=== PATIENT | male | born 1950 | race Caucasian/White ===

== ENCOUNTER 2018-10-17 09:35 | Inpatient (IN) | payer MEDICARE ==
[2018-10-17] MEDS ORDERED: SODIUM CHLORIDE 0.9% 1,000 ML IV STA (10:38)
[2018-10-17] MEDS ORDERED: MORPHINE SULFATE 4 MG/ML SYRINGE IV STA (10:38)
[2018-10-17 11:19] LABS: Partial Thromboplastin Time 23.7 sec (22.0-30.0); Prothrombin Time 11.1 sec (9.0-12.0)
[2018-10-17 11:20] LABS: Basophils % (A) 0 %; Eosinophils # (A) 0.1 k/uL (0-0.7); Eosinophils % (A) 1 %; HCT 49.7 % (39.0-53.0); HGB 16.9 gm/dL (13.0-17.5); Lymphocytes # (A) 0.6 k/uL (1.0-4.8); Lymphocytes % (A) 9 %; MCH 32.4 pg (25.0-35.0); MCV 95.6 fL (80.0-100.0); Mean Platelet Volume 7.7; Monocytes # (A) 0.4 k/uL (0-1.0); Monocytes % (A) 6 %; Neutrophils # (A) 5.5 k/uL (1.3-7.7); Neutrophils % (A) 84 %; Platelet Count 203 k/uL (150-450); RDW 12.7 % (11.5-15.5); WBC 6.5 k/uL (3.8-10.6)
[2018-10-17 11:25] LABS: ALT 22 U/L (21-72); AST 20 U/L (17-59); Albumin 3.8 g/dL (3.5-5.0); Alkaline Phosphatase 61 U/L (38-126); Amylase <30 U/L (30-110); Anion Gap 17 mmol/L; Blood Urea Nitrogen 20 mg/dL (9-20); Calcium 9.1 mg/dL (8.4-10.2); Carbon Dioxide 24 mmol/L (22-30); Chloride 93 mmol/L (98-107); Glucose 124 mg/dL (74-99); Lipase 35 U/L (23-300); Magnesium 2.3 mg/dL (1.6-2.3); Potassium 3.5 mmol/L (3.5-5.1); Sodium 134 mmol/L (137-145); Total Bilirubin 1.5 mg/dL (0.2-1.3); Total Protein 6.1 g/dL (6.3-8.2)
[2018-10-17 11:35] LABS: Creatine Kinase 25 U/L (55-170)
[2018-10-17 11:48] LABS: Troponin I <0.012 ng/mL (0.000-0.034)
--- NOTE | 2018-10-17 12:37 | CT ---
EXAMINATION TYPE: CT chest angio for PE DATE OF EXAM: 10/17/2018 COMPARISON: None HISTORY: 68-year-old male with pain TECHNIQUE: Contiguous axial scanning of the chest performed with IV Contrast, patient injected with 1 00 mL of Isovue 370. Coronal/sagittal MIP reconstructions performed. CT DLP: 559.9 mGycm Automated exposure control for dose reduction was used. FINDINGS: Heart normal size without pericardial effusion. Coronary vessel calcifications are present. Mildly aneurysmal aortic root at 4.0 cm. Ascending aorta aneurysmal at 4.4 cm. Conventional arch vessel branching anatomy. There is heterogene ous enhancement throughout the ascending and proximal descending thoracic aorta felt to be due to adm ixture of contrast and blood. Satisfactory opacification of the pulmonary arterial system. Mildly enlarged caliber to the main righ t and left pulmonary arteries measuring up to 2.7 cm. No flattening of the interventricular septum or reflux of contrast into the hepatic veins. There is mural-based branch point embolic material and thrombus at the junction of the right middle a nd lower lobar branches. No central filling defect is identified. For example, refer to axial image 9 0. No thoracic lymphadenopathy. Moderate to advanced centrilobular emphysema with areas of interstitial scarring. Mild diffuse bronch ial wall thickening is present. No consolidation or pleural effusion. Small hiatal hernia. Mild circumferential wall thickening of the lower esophagus could represent esop hagitis. Abdomen reported separately. Bones: Osteopenia. No osseous destructive process seen. IMPRESSION: 1. MURAL BASED, NONOCCLUSIVE THROMBUS AT THE BRANCH POINT OF THE RIGHT MIDDLE AND LOWER LOBAR PULMONA RY ARTERIES COMPATIBLE WITH CHRONIC THROMBOEMBOLIC DISEASE. NO CENTRAL FILLING DEFECT TO SUGGEST ACUT E PULMONARY EMBOLISM. 2. COPD WITH MODERATE TO ADVANCED EMPHYSEMA AND PULMONARY ARTERIAL HYPERTENSION. NO CT EVIDENCE FOR R IGHT HEART STRAIN. 3. 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 HETEROGENEOUS ENHANCEMENT THROUGHOUT THE THORACIC AORTA FELT TO BE DUE TO ADMIXTURE OF NONOPACIFIED BLOOD AND CONTRAST. 4. SMALL HIATAL HERNIA. MILD CIRCUMFERENTIAL WALL THICKENING OF THE LOWER ESOPHAGUS COULD REPRESENT E SOPHAGITIS. Critical findings called to TRU Arredondo in the ER at 12:30 PM.
[2018-10-17] MEDS ORDERED: HEPARIN SODIUM,PORCINE 5,000 UNIT/ML 1 ML VIAL IV STA (12:39)
--- NOTE | 2018-10-17 12:41 | ED ---
General Adult HPI - General Chief complaint: Abdominal Pain Stated complaint: Abd pain Time Seen by Provider: 10/17/18 10:13 Source: patient, RN notes reviewed Mode of arrival: wheelchair Limitations: no limitations - History of Present Illness Initial comments: 68-year-old male presents to the emergency department for a chief complaint of abdominal pain. Patient is deaf and angle shearer was unavailable until 3 hours into his stay. Patient points to his lower abdomen and right testicle stating he has pain. He states he has not had a bowel movement for 2 weeks. Patient also admits he has been coughing up phlegm. He admits to feeling shortness of breath. Patient denies any chest pain. Patient does admit to past smoking history. Patient is unsure of past medical diagnoses. Patient has no other complaints at this time including chest pain, headache, or visual changes. - Related Data Home Medications Medication Instructions Recorded Confirmed Doxylamine Succinate [Unisom] 25 mg PO HS PRN 10/17/18 10/17/18 Allergies Allergy/AdvReac Type Severity Reaction Status Date / Time No Known Allergies Allergy Verified 10/17/18 13:06 Review of Systems ROS Statement: Those systems with pertinent positive or pertinent negative responses have been documented in the HPI. ROS Other: All systems not noted in ROS Statement are negative. Past Medical History Past Medical History: Unable to Obtain Additional Past Medical History / Comment(s): deaf History of Any Multi-Drug Resistant Organisms: Unobtainable Past Surgical History: Unable to Obtain Past Psychological History: Unable to Obtain Smoking Status: Unknown if ever smoked Past Alcohol Use History: Unable to Obtain Past Drug Use History: Unable to Obtain - Past Family History Father History Unknown: Yes Mother History Unknown: Yes General Exam Limitations: no limitations General appearance: alert, in no apparent distress Head exam: Present: atraumatic, normocephalic, normal inspection Eye exam: Present: normal appearance, PERRL, EOMI. Absent: scleral icterus, conjunctival injection, periorbital swelling ENT exam: Present: normal exam, normal oropharynx (Oropharynx nonerythematous, no tonsillar exudates noted bilaterally), mucous membranes moist, TM's normal bilaterally, normal external ear exam Neck exam: Present: normal inspection, full ROM. Absent: tenderness, meningismus, lymphadenopathy Respiratory exam: Present: wheezes (Wheezing noted throughout lung henson). Absent: respiratory distress Cardiovascular Exam: Present: regular rate, normal rhythm, normal heart sounds. Absent: systolic murmur, diastolic murmur, rubs, gallop, clicks GI/Abdominal exam: Present: distended (Abdomen does appear distended), tenderness (Tenderness noted in the lower abdomen), hyperactive bowel sounds. Absent: guarding, rebound, rigid exam: Present: testicular tenderness, scrotal swelling (Enlarged right scrotum noted , tender to palpation) Extremities exam: Absent: calf tenderness Neurological exam: Present: alert Psychiatric exam: Present: normal affect, normal mood Course Vital Signs 10/17/18 10/17/18 10/17/18 09:40 10:42 11:00 Temperature 97.0 F L Pulse Rate 125 H 111 H Respiratory 16 18 Rate Blood Pressure 102/69 109/92 126/87 O2 Sat by Pulse 94 L 97 Oximetry 10/17/18 10/17/18 13:00 14:52 Temperature Pulse Rate 112 H 112 H Respiratory 18 18 Rate Blood Pressure 127/88 138/86 O2 Sat by Pulse 94 L 94 L Oximetry - Reevaluation(s) Reevaluation #1: 10/17/18 12:41 Radiologist called at 12:40 PM stating patient has PE, likely chronic. Reevaluation #2: 10/17/18 15:[address] santos who does not want to treat chronic PE. EKG Findings - EKG Comments: EKG Findings:: EKG shows sinus tachycardia, ventricular rate 111, WI interval 138, QTC 514, right bundle branch block evident Medical Decision Making - Medical Decision Making 68-year-old male with unknown past medical history presents to the emergency department for a chief complaint of abdominal and testicular pain. Blood pressure has been within normal limits. Patient has consistently been between 94% on room air and 97%. On exam patient does have a abdominal distention and hyperactive bowel sounds. He has tenderness in the lower abdomen. Testicle is enlarged. CT abdomen and pelvis shows a high-grade small bowel obstruction secondary to a large right inguinal hernia containing distal ileal small bowel loops. There is also a suspected high-grade colonic obstruction with a transition point along the proximal to mid aspect of a very redundant sigmoid colon. Colon is dilated up to 8.5 cm. patient complaining of shortness of breath and productive cough as well. Patient has also been consistently tachycardic. Given shortness of breath and persistent tachycardia with unknown medical history CTA of the chest was ordered which did show thrombus at the branch point of the right middle and lower lobar pulmonary arteries which is likely chronic. COPD is also evident with pulmonary arterial hypertension. 4.4 cm aneurysmal ascending aorta is also present. Patient was started on heparin. Dr. Calles Discussed this case with Dr. Jean who requests primary admission. Patient will be admitted to Dr. Jean - Lab Data Result diagrams: 10/17/18 10:45 10/17/18 10:45 Lab Results 10/17/18 10/17/18 10/17/18 Range/Units 10:45 10:45 10:45 WBC 6.5 (3.8-10.6) k/uL RBC 5.20 (4.30-5.90) m/uL Hgb 16.9 (13.0-17.5) gm/dL Hct 49.7 (39.0-53.0) % MCV 95.6 (80.0-100.0) fL MCH 32.4 (25.0-35.0) pg MCHC 34.0 (31.0-37.0) g/dL RDW 12.7 (11.5-15.5) % Plt Count 203 (150-450) k/uL Neutrophils % 84 % Lymphocytes % 9 % Monocytes % 6 % Eosinophils % 1 % Basophils % 0 % Neutrophils # 5.5 (1.3-7.7) k/uL Lymphocytes # 0.6 L (1.0-4.8) k/uL Monocytes # 0.4 (0-1.0) k/uL Eosinophils # 0.1 (0-0.7) k/uL Basophils # 0.0 (0-0.2) k/uL PT (9.0-12.0) sec INR (<1.2) APTT (22.0-30.0) sec Sodium 134 L (137-145) mmol/L Potassium 3.5 (3.5-5.1) mmol/L Chloride 93 L (98-107) mmol/L Carbon Dioxide 24 (22-30) mmol/L Anion Gap 17 mmol/L BUN 20 (9-20) mg/dL Creatinine 0.94 (0.66-1.25) mg/dL Est GFR (CKD-EPI)AfAm >90 (>60 ml/min/1.73 sqM) Est GFR (CKD-EPI)NonAf 83 (>60 ml/min/1.73 sqM) Glucose 124 H (74-99) mg/dL Calcium 9.1 (8.4-10.2) mg/dL Magnesium 2.3 (1.6-2.3) mg/dL Total Bilirubin 1.5 H (0.2-1.3) mg/dL AST 20 (17-59) U/L ALT 22 (21-72) U/L Alkaline Phosphatase 61 (38-126) U/L Total Creatine Kinase 25 L (55-170) U/L CK-MB (CK-2) 1.0 (0.0-2.4) ng/mL CK-MB (CK-2) Rel Index 4.0 Troponin I <0.012 (0.000-0.034) ng/mL NT-Pro-B Natriuret Pep pg/mL Total Protein 6.1 L (6.3-8.2) g/dL Albumin 3.8 (3.5-5.0) g/dL Amylase <30 L (30-110) U/L Lipase 35 (23-300) U/L Group A Strep Rapid (Negative) 10/17/18 10/17/18 10/17/18 Range/Units 10:45 10:45 10:45 WBC (3.8-10.6) k/uL RBC (4.30-5.90) m/uL Hgb (13.0-17.5) gm/dL Hct (39.0-53.0) % MCV (80.0-100.0) fL MCH (25.0-35.0) pg MCHC (31.0-37.0) g/dL RDW (11.5-15.5) % Plt Count (150-450) k/uL Neutrophils % % Lymphocytes % % Monocytes % % Eosinophils % % Basophils % % Neutrophils # (1.3-7.7) k/uL Lymphocytes # (1.0-4.8) k/uL Monocytes # (0-1.0) k/uL Eosinophils # (0-0.7) k/uL Basophils # (0-0.2) k/uL PT 11.1 (9.0-12.0) sec INR 1.0 (<1.2) APTT 23.7 (22.0-30.0) sec Sodium (137-145) mmol/L Potassium (3.5-5.1) mmol/L Chloride (98-107) mmol/L Carbon Dioxide (22-30) mmol/L Anion Gap mmol/L BUN (9-20) mg/dL Creatinine (0.66-1.25) mg/dL Est GFR (CKD-EPI)AfAm (>60 ml/min/1.73 sqM) Est GFR (CKD-EPI)NonAf (>60 ml/min/1.73 sqM) Glucose (74-99) mg/dL Calcium (8.4-10.2) mg/dL Magnesium (1.6-2.3) mg/dL Total Bilirubin (0.2-1.3) mg/dL AST (17-59) U/L ALT (21-72) U/L Alkaline Phosphatase (38-126) U/L Total Creatine Kinase (55-170) U/L CK-MB (CK-2) (0.0-2.4) ng/mL CK-MB (CK-2) Rel Index Troponin I (0.000-0.034) ng/mL NT-Pro-B Natriuret Pep 692 pg/mL Total Protein (6.3-8.2) g/dL Albumin (3.5-5.0) g/dL Amylase (30-110) U/L Lipase (23-300) U/L Group A Strep Rapid Negative (Negative) - EKG Data -: EKG Interpreted by Me (And Dr. Trevino) When compared to previous EKG there are: previous EKG unavailable Disposition Clinical Impression: Pulmonary embolism, Small bowel obstruction, Large bowel obstruction Disposition: ADMITTED IP TO THIS [facility] Condition: Good Is patient prescribed a controlled substance at d/c from ED?: No Time of Disposition: 14:39
[2018-10-17] MEDS ORDERED: HEPARIN SOD,PORK IN 0.45% NACL 25,000 UNIT in 0.45% NACL 1 250ML.BAG IV SCH (12:45)
--- NOTE | 2018-10-17 12:51 | CT ---
EXAMINATION TYPE: CT abdomen pelvis w con DATE OF EXAM: 10/17/2018 COMPARISON: NONE HISTORY: 68-year-old male with abdominal pain. Swollen right testicle and lower abdominal pain. TECHNIQUE: Contiguous axial scanning of the abdomen and pelvis following administration of 100 ml Iso ann 370 IV contrast. Delayed images through the kidneys and coronal/sagittal reconstructions perform ed. CT DLP: 354.9 mGycm Automated exposure control for dose reduction was used. FINDINGS: Mild circumferential wall thickening lower esophagus with a small hiatal hernia is discussed in separ ate CT chest report. A few scattered subcentimeter hypodensities in the liver too small for accurate CT characterization, likely cysts. Portal venous systems of this patent. No biliary ductal dilatation. Tiny 5 mm cystic lesion in the inferior pancreatic head. Nonspecific. Spleen and adrenal glands appe ar within normal limits. Gallbladder shows a 1 cm calculus. No abnormal gallbladder distention. A few cortical hypodense lesions in the right kidney suggestive of cysts. Symmetric uptake and excret ion of contrast from both kidneys There is herniation of multiple ileal loops of small bowel through a right inguinal hernia. Bowel loo ps within the hernia are dilated up to 2.8 cm with air-fluid levels. There is dilatation of the affer ent small bowel loops to 3.3 cm in the pelvis and lower abdomen and the efferent terminal ileum is re latively collapsed. However, there is marked diffuse colonic dilatation measuring up to 8.5 cm with fatty stool material. An apparent transition point is seen along the very redundant proximal to mid sigmoid colon on axial images 52 and 53 and sagittal image 77. No free air. There is mild to moderate pelvic free fluid. Prostate gland measures 5.5 cm wide. No pel joe lymphadenopathy or obvious intra-abdominal lymphadenopathy seen. Bones: Osteopenia without osseous destructive process. IMPRESSION: 1. HIGH-GRADE SMALL BOWEL OBSTRUCTION SECONDARY TO A LARGE RIGHT INGUINAL HERNIA CONTAINING DISTAL IL EAL SMALL BOWEL LOOPS. SMALL BOWEL LOOPS ARE DILATED UP TO 3.3 CM. LOOPS WITHIN THE HERNIA SAC ARE DI LATED UP TO 2.8 CM. 2. SUSPECT A HIGH-GRADE COLONIC OBSTRUCTION WELL WITH TRANSITION POINT ALONG THE PROXIMAL TO MID A SPECT OF A VERY REDUNDANT SIGMOID COLON (AXIAL IMAGES 52 AND 53 AND SAGITTAL IMAGE 77). COLON IS DILA KSIP UP TO 8.5 CM. 3. MILD TO MODERATE PELVIC ASCITES LIKELY REACTIVE. NO FREE AIR. 4. CHOLELITHIASIS.
[2018-10-17] MEDS ORDERED: ONDANSETRON 4 MG/2 ML VIAL IVP STA (14:10)
[2018-10-17] MEDS ORDERED: AMPICILLIN-SULBACTAM 3 GM in SODIUM CHLORIDE 0.9% 100 ML IVPB STA (14:10)
[2018-10-17] MEDS ORDERED: PANTOPRAZOLE 40 MG/10 ML VIAL IVP STA (14:10)
[2018-10-17] MEDS ORDERED: ONDANSETRON 4 MG/2 ML VIAL IVP PRN (14:10)
[2018-10-17] MEDS: MORPHINE SULFATE 4 MG/ML SYRINGE IVP PRN (14:46)
[2018-10-17] MEDS ORDERED: LIDOCAINE URO-JET JELLY 2% 5 ML KIT URETHRAL ONE (15:13)
--- NOTE | 2018-10-17 15:57 | XR ---
EXAMINATION TYPE: XR chest 1V DATE OF EXAM: 10/17/2018 COMPARISON: CT chest, abdomen, and pelvis of the same date HISTORY: Chest pain. Nasal gastric tube placement. TECHNIQUE: Single frontal view of the chest is obtained. FINDINGS: There is pulmonary hyperinflation and biapical lucency compatible with underlying COPD. Os seous structures display generalized osseous demineralization. Right hemidiaphragm elevation is seen and there are no priors for comparison. No focal consolidation, pleural effusion or pneumothorax. The fenestrated portion of the enteric tube is seen at the gastroesophageal junction and could be adv anced for optimal placement at least 3 cm. Hilar prominence may relate to underlying pulmonary arteri al hypertension as seen on the recent CT. IMPRESSION: 1. The fenestrated portion of the nasogastric tube is located at the gastroesophageal junction and co uld be advanced at least 3 cm for optimal placement. 2. Findings compatible with underlying COPD. 3. Partial visualization of dilated intra-abdominal bowel compatible with a recent CT demonstrating h igh-grade small bowel obstruction.
[2018-10-17] MEDS: SODIUM CHLORIDE 0.9% 1,000 ML IV SCH (18:00)
--- NOTE | 2018-10-17 18:41 | HP ---
HISTORY AND PHYSICAL CHIEF COMPLAINT: Abdominal and chest pain. HISTORY OF PRESENT ILLNESS: This is the first known admission for this 68-year-old white male. He came to the emergency room after he had had 2 days of abdominal pain with distention. He had no nausea or vomiting. He is difficult to obtain a history from because he is deaf, and the history is taken through an educational interpreter using sign language. He sounds like he has otherwise been healthy and does go to a physician. He denies any significant weight loss, melena, hematochezia, jaundice, hematemesis, etc. He has had no fever or chills. In the emergency room it was determined that he had a bowel obstruction and he has a large inguinal hernia that is distended into the right hemiscrotum. Apparently he also had a PE at the junction of the right middle and lower lobes. He has had no history of any chest pain, hemoptysis, swelling in either leg, etc. REVIEW OF SYSTEMS: He has apparently had no other health problems, including headaches, trouble with vision or hearing, diabetes, hypertension, kidney disease, etc. Past medical history, family history, and personal and social histories reveal that he is not on any medication and NOT ALLERGIC TO ANY MEDICATION. Surgically he has had a cyst removed from the back of the left wrist and one from the right leg. He smokes about a pack of cigarettes a day and drinks alcohol occasionally at bedtime. PHYSICAL EXAMINATION: Blood pressure is 142/76 with a pulse of 80, respirations of 20, and he is afebrile. In general he appeared to be slender, asthenic and in no acute distress. Head, ears, eyes, nose, mouth and throat were normal. Carotids were normal. Neck veins were not distended. The chest was clear. There were no rales or rhonchi. There were no rubs. Cardiac exam was normal sinus rhythm and no murmurs or extra sounds. The abdomen was slightly distended and he had generalized mild tenderness. Bowel sounds were not heard. He had a large right inguinal hernia that completely fills the scrotum. EXTREMITIES: Normal. There was no edema, calf tenderness or swelling, and the pulses were good. Neurologically he was intact. IMPRESSION: 1. Bowel obstruction. 2. Probable incarcerated right inguinal hernia. 3. Pulmonary embolism at the bifurcation of the right middle and lower lobes and pulmonary vein. 4. Congenital deafness. PLAN: 1. Bed rest. 2. IV fluids. 3. N.p.o. 4. Anticoagulate with heparin now until he goes to the operating room, if necessary. 5. Consult General Surgery. WARREN / DEIDRE: [id number] /
[2018-10-17 19:56] LABS: Appearance,Urine Clear (Clear); Bilirubin,Urine Negative (Negative); Blood,Urine Negative (Negative); Color,Urine Yellow; Glucose,Urine (UA) Negative (Negative); Ketones,Urine 1+ (Negative); Leukocyte Esterase,Urine Negative (Negative); Mucus,Urine Rare /hpf; Nitrite,Urine Negative (Negative); Protein,Urine 1+ (Negative); RBC,Urine 6 /hpf (0-5); Squamous Epithelial Cell,Urine 1 /hpf (0-4); Urobilinogen,Urine <2.0 mg/dL (<2.0); WBC,Urine 4 /hpf (0-5)
[2018-10-17 20:07] LABS: Specific Gravity,Urine >1.050 (1.001-1.035)
[2018-10-17] MEDS: AMPICILLIN-SULBACTAM 3 GM in SODIUM CHLORIDE 0.9% 100 ML IVPB SCH (21:50)
[2018-10-18] MEDS: MORPHINE SULFATE 4 MG/ML SYRINGE IVP PRN ×2 (00:06→04:28)
[2018-10-18] MEDS: SODIUM CHLORIDE 0.9% 1,000 ML IV SCH ×4 (00:09→19:18)
--- NOTE | 2018-10-18 00:54 | US ---
EXAMINATION TYPE: US venous doppler duplex LE BI DATE OF EXAM: 10/17/2018 3:51 PM COMPARISON: NONE CLINICAL HISTORY: Rule out DVT. Pain SIDE PERFORMED: Bilateral TECHNIQUE: The lower extremity deep venous system is examined utilizing real time linear array sonog nuris with graded compression, doppler sonography and color-flow sonography. VESSELS IMAGED: External Iliac Vein (EIV) Common Femoral Vein Deep Femoral Vein Greater Saphenous Vein * Femoral Vein Popliteal Vein Small Saphenous Vein * Proximal Calf Veins (* superficial vessels) Right Leg: Negative for DVT Left Leg: Negative for DVT No evidence of DVT bilateral legs. IMPRESSION: Normal bilateral leg duplex venous sonogram.
[2018-10-18] MEDS: AMPICILLIN-SULBACTAM 3 GM in SODIUM CHLORIDE 0.9% 100 ML IVPB SCH ×4 (02:32→21:04)
[2018-10-18] MEDS: PANTOPRAZOLE 40 MG/10 ML VIAL IVP SCH (07:44)
--- NOTE | 2018-10-18 11:32 | P.GSCN ---
History of Present Illness Consult date: 10/18/18 Reason for Consult: Abdominal pain small bowel obstruction History of present illness: 68-year-old presents to the emergency room with a chief complaint of developing lower abdominal pain. 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 Blender Snuff at bedside during interview patient reports that he has not had a bowel movement thinks for at least several weeks with nausea sensation poor appetite feeling slightly short of breath no fever chills denies chest pain . Additionally patient states he has had right testicle swelling for at least 4 years has increased in size abdomen is firm distended with hyperactive bowel tones nasal gastric tube is in place connected to suction. Patient states he is not normally bothered by chronic constipation this is new no prior episodes patient states only home medication he takes is for insomnia takes over-the- counter unisom. Patient states he lives alone has no family . No significant past surgical history. No significant past medical history when questioning states he has not seen a physician in years . States he does drink 40 ounces of alcohol at least daily and smokes one pack of cigarettes daily Venous Dopplers done in the emergency room no evidence of a DVT CAT scan abdomen and pelvis with contrast report reviewed indicates high-grade small bowel obstruction secondary to a large right inguinal hernia containing distal ileum small bowel loops suspect a high-grade colon obstruction as well as transition point along the proximal to mid aspect of the very redundant sigmoid colon no free air mild to moderate pelvic ascites likely reactive CAT scan of the chest to rule out PE reviewed the report COPD with moderate to advanced emphysema no evidence of right heart strain, no central filling defect to suggest an acute pulmonary emboli, small hiatal hernia, aneurysmal ascending aorta at 4.4 cm Review of Systems Essentially unremarkable except as mentioned present illness Past Medical History Past Medical History: Unable to Obtain Additional Past Medical History / Comment(s): deaf History of Any Multi-Drug Resistant Organisms: Unobtainable Past Surgical History: Unable to Obtain Additional Past Surgical History / Comment(s): cyst from right hand removed, and rt hip Past Anesthesia/Blood Transfusion Reactions: No Reported Reaction Additional Past Anesthesia/Blood Transfusion Reaction / Comm: "has never recieved any blood transfusions" Past Psychological History: Unable to Obtain Smoking Status: Unknown if ever smoked Past Alcohol Use History: Unable to Obtain Past Drug Use History: Unable to Obtain - Past Family History Father History Unknown: Yes Mother History Unknown: Yes Medications and Allergies Home Medications Medication Instructions Recorded Confirmed Type Doxylamine Succinate [Unisom] 25 mg PO HS PRN 10/17/18 10/17/18 History Allergies Allergy/AdvReac Type Severity Reaction Status Date / Time No Known Allergies Allergy Verified 10/17/18 13:06 Surgical - Exam Vital Signs Temp Pulse Resp BP Pulse Ox 97.0 F L 125 H 16 102/69 94 L 10/17/18 09:40 10/17/18 09:40 10/17/18 09:40 10/17/18 09:40 10/17/18 09:40 GENERAL APPEARANCE: 68-year-old male deaf since unkempt looking older than stated age alert, oriented, VITAL SIGNS: Reviewed HEENT: Head is normocephalic and atraumatic. Pupils are equal and reactive. The nares are patent. Oropharynx is clear without lesions. NECK: Supple without lymphadenopathy. Traches midline. HEART: S1, S2. Regular rate and rhythm. Denying chest pain no murmur noted LUNGS: Bilateral prolonged expiratory wheezing noted decreased at the bases ABDOMEN: Firm distended nasal gastric tube to suction positive scrotal edema with tenderness enlarged right scrotum tender to palpitation scrotum excoriated incontinent of stool small smear on underwear EXTREMITIES: Normal skin color and turgor. No cyanosis, rash, ulceration, clubbing or edema. Radial pedal pulses are 2/4 bilaterally. NEUROLOGICAL: No focal deficits. Strength and sensation are grossly intact. Results Impression Present on admission abdominal distention with constipation no bowel movement for 2 weeks suspect due to incarcerated small bowel obstruction Daily alcohol use 40 ounces daily Daily tobacco use one pack a day Computed tomography scan abdomen and pelvis done in the emergency room report indicate high-grade small bowel obstruction secondary to a large right inguinal hernia Computed tomography scan abdomen and pelvis mild to moderate pelvic ascites likely reactive no free air Deaf since uses a sign language to communicate needs an exhaust worker at the bedside No evidence of a DVT bilateral Doppler studies negative of the lower extremities Computed tomography scan of the chest showed COPD with moderate to advanced emphysema CAT scan of the chest no central filling defect to suggest an acute pulmonary emboli felt to be chronic there is a nonocclusive thrombus at the branch point of the right middle and lower lobe compatible with chronic thromboembolic disease Present on admission sinus tachycardia heart rate 110 Chronic insomnia Plan Monitor patient for impending DTs Consult cardiology tachycardia follow-up on echocardiogram Continue with the nasogastric tube to suction as ordered DVT and GI prophylaxis Continue recommendations by pulmonary Scheduled today for exploratory laparotomy small bowel obstruction due to incarcerated hernia Further surgical recommendations pending clinical course The above impression and plan of care have been discussed and directed by signing physician. Shoshana Ritchie nurse practitioner acting as scribe for signing physician. - Labs 10/17/18 10:45 10/17/18 10:45 Abnormal Lab Results - Last 24 Hours (Table) 10/17/18 10/17/18 10/17/18 Range/Units 10:45 10:45 10:45 Lymphocytes # 0.6 L (1.0-4.8) k/uL APTT (22.0-30.0) sec Sodium 134 L (137-145) mmol/L Chloride 93 L (98-107) mmol/L Glucose 124 H (74-99) mg/dL Total Bilirubin 1.5 H (0.2-1.3) mg/dL Total Creatine Kinase 25 L (55-170) U/L Total Protein 6.1 L (6.3-8.2) g/dL Amylase <30 L (30-110) U/L Ur Specific Douglas (1.001-1.035) Urine Protein (Negative) Urine Ketones (Negative) Urine RBC (0-5) /hpf Urine Mucus (None) /hpf 10/17/18 10/17/18 Range/Units 19:40 20:29 Lymphocytes # (1.0-4.8) k/uL APTT 135.9 H* (22.0-30.0) sec Sodium (137-145) mmol/L Chloride (98-107) mmol/L Glucose (74-99) mg/dL Total Bilirubin (0.2-1.3) mg/dL Total Creatine Kinase (55-170) U/L Total Protein (6.3-8.2) g/dL Amylase (30-110) U/L Ur Specific Douglas >1.050 H (1.001-1.035) Urine Protein 1+ H (Negative) Urine Ketones 1+ H (Negative) Urine RBC 6 H (0-5) /hpf Urine Mucus Rare H (None) /hpf Microbiology - Last 24 Hours (Table) 10/17/18 19:40 Urine Culture - Preliminary Urine,Voided 10/17/18 10:45 Group A Strep Throat Culture - Preliminary Throat Diabetes panel 10/17/18 Range/Units 10:45 Sodium 134 L (137-145) mmol/L Potassium 3.5 (3.5-5.1) mmol/L Chloride 93 L (98-107) mmol/L Carbon Dioxide 24 (22-30) mmol/L BUN 20 (9-20) mg/dL Creatinine 0.94 (0.66-1.25) mg/dL Glucose 124 H (74-99) mg/dL Calcium 9.1 (8.4-10.2) mg/dL AST 20 (17-59) U/L ALT 22 (21-72) U/L Alkaline Phosphatase 61 (38-126) U/L Total Protein 6.1 L (6.3-8.2) g/dL Albumin 3.8 (3.5-5.0) g/dL Calcium panel 10/17/18 Range/Units 10:45 Calcium 9.1 (8.4-10.2) mg/dL Albumin 3.8 (3.5-5.0) g/dL Pituitary panel 10/17/18 Range/Units 10:45 Sodium 134 L (137-145) mmol/L Potassium 3.5 (3.5-5.1) mmol/L Chloride 93 L (98-107) mmol/L Carbon Dioxide 24 (22-30) mmol/L BUN 20 (9-20) mg/dL Creatinine 0.94 (0.66-1.25) mg/dL Glucose 124 H (74-99) mg/dL Calcium 9.1 (8.4-10.2) mg/dL Adrenal panel 10/17/18 Range/Units 10:45 Sodium 134 L (137-145) mmol/L Potassium 3.5 (3.5-5.1) mmol/L Chloride 93 L (98-107) mmol/L Carbon Dioxide 24 (22-30) mmol/L BUN 20 (9-20) mg/dL Creatinine 0.94 (0.66-1.25) mg/dL Glucose 124 H (74-99) mg/dL Calcium 9.1 (8.4-10.2) mg/dL Total Bilirubin 1.5 H (0.2-1.3) mg/dL AST 20 (17-59) U/L ALT 22 (21-72) U/L Alkaline Phosphatase 61 (38-126) U/L Total Protein 6.1 L (6.3-8.2) g/dL Albumin 3.8 (3.5-5.0) g/dL Assessment and Plan Assessment: Impression 68-year-old male sitting up in bed with a nasogastric tube in place exhaust worker at bedside able to read sign language oriented to person place and event Lungs prolonged expiratory wheezing throughout no cough noted states is not short of breath Heart S1-S2 audible regular no murmur Abdomen firm distended positive tenderness in the lower abdominal wall with hyperactive bowel tones nasogastric tube to suction reports a nausea sensation Extremities no calf tenderness no edema noted exam positive tenderness with scrotal edema bilaterally right greater than the left tenderness with palpitation with firmness noted scrotal excoriation noted
[2018-10-18] MEDS: HEPARIN SODIUM,PORCINE 5,000 UNIT/ML 1 ML VIAL SQ SCH ×2 (11:52→18:29)
[2018-10-18] MEDS ORDERED: ONDANSETRON 4 MG/2 ML VIAL IVP ONE ×2 (14:48→15:12)
[2018-10-18] MEDS ORDERED: DEXAMETHASONE SOD PHOSPHATE 10 MG/ML 1 ML VIAL IV ONE ×2 (14:48→15:12)
[2018-10-18] MEDS ORDERED: LIDOCAINE 1% 20 ML VIAL (10MG/ML) FOR IV START INTRADERMA PRN (14:48)
[2018-10-18] MEDS ORDERED: SCOPOLAMINE 1.5MG/72HR PATCH TRANSDERM ONE (14:48)
[2018-10-18] MEDS ORDERED: IV FLUID CONTINUATION 1,000 ML IV ONE (15:12)
[2018-10-18] MEDS ORDERED: fentaNYL (PF) 50 MCG/ML 2 ML AMP ONE (16:36)
[2018-10-18] MEDS ORDERED: PROPOFOL 10 MG/ML 20 ML VIAL IV ONE (16:36)
[2018-10-18] MEDS ORDERED: GLYCOPYRROLATE 0.2 MG/ML 2 ML VIAL ONE (16:36)
[2018-10-18] MEDS ORDERED: MIDAZOLAM 2 MG/2 ML VIAL ONE (16:36)
[2018-10-18] MEDS ORDERED: ROCURONIUM BROMIDE 10 MG/ML 10 ML VIAL IV ONE (16:36)
[2018-10-18] MEDS ORDERED: LIDOCAINE 1% INJ 10MG/ML (20 ML MDV) ONE (16:36)
[2018-10-18] MEDS ORDERED: NEOSTIGMINE 1 MG/ML 10 ML VIAL ONE (16:36)
[2018-10-18] MEDS ORDERED: HYDROmorphone (PF) 1 MG/ML ONE (16:36)
[2018-10-18] MEDS ORDERED: SUCCINYLCHOLINE CHLORIDE 100 MG/5 ML SYR IV ONE (16:36)
--- NOTE | 2018-10-18 16:44 | PN ---
PROGRESS NOTE CHIEF COMPLAINT: Bowel obstruction. HISTORY OF PRESENT ILLNESS: This gentleman has been stable and it is planned that he is going to the operating room today, for which he is cleared. PHYSICAL EXAMINATION: Chest is clear. Cardiac exam is normal. The abdomen is still distended and tender. IMPRESSION: 1. Bowel obstruction. 2. Right inguinal hernia. PLAN: Surgical intervention today. WARREN / CYNDIN: [id number] /
[2018-10-18] MEDS ORDERED: KETOROLAC 30 MG/ML 1 ML VIAL IVP PRN (17:45)
[2018-10-18] MEDS ORDERED: BENZOCAINE/MENTHOL LOZENG 1 EACH LOZENGE MUCOUS MEM PRN (17:45)
[2018-10-18] MEDS ORDERED: METOCLOPRAMIDE 5 MG/ML 2 ML VIAL IVP PRN (17:45)
[2018-10-18] MEDS ORDERED: LACTATED RINGERS 1,000 ML IV ONE (17:48)
--- NOTE | 2018-10-18 17:49 | P.OP ---
Date of Procedure: 10/18/18 Preoperative Diagnosis: Colonic obstruction Postoperative Diagnosis: Plaque obstruction Ventral hernia Procedure(s) Performed: Left colectomy with end colostomy Partial omentectomy Repair of ventral hernia Anesthesia: LUIS ANTONIO Surgeon: Chas Jean Estimated Blood Loss (ml): 25 Pathology: other (Left colon, incarcerated omentum) Condition: stable Disposition: PACU Description of Procedure: Patient's placed the operative table in the supine position. He received general anesthesia. His abdomen was prepped and draped usual sterile fashion. The area was entered through midline incision. There was a small ventral hernia containing incarcerated omentum. The omentum was transected and sent to pathology. A Bookwalter tract with wound. The colon and small bowel were very dilated. The cecum measured approximately 15 cm diameter. The colon was tracked to the left colon and there was obstructing tumor. The colon was transected distally and proximally with a GI stapler and then using the Enseal device the mesentery the bowel was divided. A another distal segment was removed. It contained a hard stool within it. It was transected with a GI stapler and then the mesentery was divided with the Enseal device. The colon and small bowel or massive dilated. An enterotomy was made at the colonic staple line and then the colon was aspirated. This was closed with a GI stapler. Next another enterotomy is made on the small bowel and it was decompressed as well and then the enterotomy was closed with the TA stapler. The colostomy was brought out in the left lower quadrant. The abdomen was irrigated the fascia was closed with looped #1 PDS suture. The fascia was closed with looped PDS suture the fascia repair incorporated the repair of the ventral hernia. The skin was closed morena. The colostomy matured with 3-0 Vicryl. Silverlon dressing was applied. Patient thought procedure well and sent to recovery in stable condition.
--- NOTE | 2018-10-18 17:57 | CONS ---
CONSULTATION PULMONARY CRITICAL CARE CONSULTATION: REASON FOR CONSULTATION: Possible pulmonary embolism. This is a very pleasant 68-year-old male who presents to the emergency department for complaints of lower abdominal pain. The pain is primarily in the right groin area. The patient was found to have a large hernia noted in the right inguinal area. Multiple loops of bowel were noted to protrude into the inguinal canal. He was seen by Surgery and there was some consideration given to the possibility of surgery. He was also thought to have a bowel obstruction. I was consulted because for some reason apparently he was having some difficulty breathing. On further talking to the patient through a university administrator because the patient is deaf, it was discovered that the patient's primary issue was that he was not able to breathe through his nose because it was stuffed up and also because he had an NG tube in place. Anyway, because of the questionable shortness of breath history, the patient went for a CT angiogram. The CT angiogram showed an old clot noted in the right pulmonary artery. On talking to the patient again through the university administrator, he apparently has had a previous history of blood clot many years back. The radiologist who read the scan thought the clot was likely old and not acute. The patient is really not having any chest pain or chest discomfort. Not short of breath. Not coughing. No fever or chills. I believe this clot probably is remote in its origin and not acute in any way whatsoever. MEDICATION: His only medication at home is Unisom 25 mg at bedtime. ALLERGIES: NO KNOWN ALLERGIES. His past medical history is not well documented other than for remote history of PE. The patient does have deafness. Surgical history is unknown. SOCIAL HISTORY: Negative for tobacco use. The rest of the history is not too remarkable. Occupational and family history not known. REVIEW OF SYSTEMS: Review of systems is difficult to obtain, but his only complaint really is pain in the right groin area. This is what really brought him into the emergency department. He denies any nausea or vomiting. No fever or chills. No cough. No phlegm production. No chest pain or chest discomfort. Nothing to suggest pulmonary embolus as an acute event. PHYSICAL EXAMINATION: Current vital signs are reviewed. Temperature is 97.8, heart rate 108, respirations 17, blood pressure 140/92, mean of 108, room-air saturation 96%. Appears in no acute distress. HEENT examination is grossly unremarkable. Mucous membranes are moist. There is an NG tube in place. NECK: Supple. Full range of motion. No adenopathy. Cardiovascular examination reveals regular rhythm and rate. S1, S2 normal. He is mildly tachycardic at 100 beats per minute. It is regular. LUNGS: Clear breath sounds. No wheezes, rhonchi or crackles. ABDOMEN: Soft. Bowel sounds are heard. There is obvious hernia in the right inguinal area. Loops of bowel can be palpated. Skin is without rash. Extremity examination reveals no cyanosis, clubbing or edema. Neurologic examination is brief but nonfocal. The interview and the subsequent examination were assisted by the machine precision engraver, who could communicate with the patient because the patient is deaf. LABS: Reviewed. White count 6.5, hemoglobin 16.9, hematocrit 49.7, platelet count 203 ,000. PT/INR normal. PTT is 135.9, reflecting the patient being on IV heparin. Sodium 134, potassium 3.5, chloride 93, CO2 of 24. BUN and creatinine were 20 and 0.94. Glucose 124. Total bilirubin was 1.5, CK 25, N-terminal proBNP 692, total protein 6.1. Amylase was less than 30, lipase was normal. Albumin 3.8. Urine was negative. Group A rapid strep was negative. We did a Doppler of the lower extremities. They were negative for DVT. A chest x-ray done shows partial visualization of dilated intraabdominal bowel compatible with high- grade small bowel obstruction. CT results are noted and the scan was actually evaluated. In addition to a mural-based nonocclusive thrombus at the branch point of the right middle and lower lobe pulmonary arteries, which was consistent with chronic thromboembolic disease, there was no central filling defect to suggest acute pulmonary embolism. Changes of COPD noted. There was no evidence of heart strain. There was an aneurysm of the ascending aorta. Finally there was a small hiatal hernia. Abdominal and pelvic CT showed evidence of high-grade small-bowel obstruction secondary to a large right inguinal hernia containing distal ileal small bowel loops. In addition, there was a high-grade colonic obstruction. There were some gallstones as well. Medications are reviewed. Currently the patient is on Unasyn, IV heparin, lidocaine jelly, morphine, Zofran, Protonix and an IV. ASSESSMENT: 1. Doubt acute pulmonary embolism. 2. History of remote pulmonary embolism many years back. The patient is not really able to give much history as it relates to this previous episode of pulmonary embolism. 3. High-grade small-bowel obstruction as well as large-bowel obstruction secondary to entrapped bowel loops within the right inguinal canal. 4. Deafness. PLAN: In my opinion, the patient does not need IV heparin at this time. The patient's Doppler was negative. D-dimer was never done. The patient apparently might have surgery today. Obviously the heparin will have to be discontinued prior. I do not believe the patient needs heparin post surgery. The patient can just get standard DVT prophylaxis with either heparin 5000 units q.8 hours or Lovenox 40 mg twice a day subcutaneously. Additional recommendations and suggestions are forthcoming. WARREN / CYNDIN: [id number] / MTDD
[2018-10-18] MEDS: HYDROmorphone 0.5 MG/0.5 ML SYRINGE IVP PRN ×2 (18:10→18:15)
[2018-10-18] MEDS ORDERED: METOPROLOL TARTRATE 5 MG/5 ML VIAL IVP ONE ×2 (18:20)
[2018-10-18] MEDS: LACTATED RINGERS 1,000 ML IV SCH (18:28)
[2018-10-18] MEDS: HYDROmorphone 1 MG/ML 1 ML SYRINGE IVP PRN (20:05)
[2018-10-18] MEDS: D5-0.45% NACL WITH KCL 20MEQ/L 1,000 ML IV SCH ×2 (21:52→22:00)
[2018-10-19] MEDS: HYDROmorphone 1 MG/ML 1 ML SYRINGE IVP PRN ×6 (00:44→22:45)
[2018-10-19] MEDS: AMPICILLIN-SULBACTAM 3 GM in SODIUM CHLORIDE 0.9% 100 ML IVPB SCH ×4 (03:21→21:10)
[2018-10-19] MEDS: HEPARIN SODIUM,PORCINE 5,000 UNIT/ML 1 ML VIAL SQ SCH ×3 (03:59→16:07)
[2018-10-19] MEDS: SODIUM CHLORIDE 0.9% 1,000 ML IV SCH ×2 (04:00→10:52)
[2018-10-19] MEDS: D5-0.45% NACL WITH KCL 20MEQ/L 1,000 ML IV SCH ×2 (06:10→16:01)
[2018-10-19] MEDS: LACTATED RINGERS 1,000 ML IV SCH (07:21)
[2018-10-19] MEDS: PANTOPRAZOLE 40 MG/10 ML VIAL IVP SCH (07:26)
[2018-10-19 08:06] LABS: Basophils % (A) 0 %; Eosinophils % (A) 1 %; HCT 43.9 % (39.0-53.0); HGB 14.3 gm/dL (13.0-17.5); Lymphocytes # (A) 0.4 k/uL (1.0-4.8); Lymphocytes % (A) 8 %; MCH 31.8 pg (25.0-35.0); MCHC 32.7 g/dL (31.0-37.0); MCV 97.4 fL (80.0-100.0); Mean Platelet Volume 7.6; Monocytes # (A) 0.3 k/uL (0-1.0); Monocytes % (A) 7 %; Neutrophils # (A) 4.2 k/uL (1.3-7.7); Neutrophils % (A) 83 %; Platelet Count 153 k/uL (150-450); RBC 4.51 m/uL (4.30-5.90); RDW 12.9 % (11.5-15.5)
[2018-10-19 08:30] LABS: ALT 24 U/L (21-72); AST 17 U/L (17-59); Albumin 2.3 g/dL (3.5-5.0); Alkaline Phosphatase 32 U/L (38-126); Anion Gap 5 mmol/L; Blood Urea Nitrogen 14 mg/dL (9-20); Calcium 7.8 mg/dL (8.4-10.2); Carbon Dioxide 25 mmol/L (22-30); Chloride 107 mmol/L (98-107); Glucose 125 mg/dL (74-99); Potassium 4.6 mmol/L (3.5-5.1); Sodium 137 mmol/L (137-145); Total Bilirubin 0.7 mg/dL (0.2-1.3); Total Protein 4.4 g/dL (6.3-8.2)
--- NOTE | 2018-10-19 10:22 | CONS ---
CONSULTATION Mr. Ochoa is a 68-year-old gentleman who is seen for preop evaluation. Patient is admitted with lower abdominal pain and has a incarcerated inguinal hernia, and the patient is supposed to go for surgery. The patient is deaf. History was obtained from the spanish interpreter/translator. Patient mostly came with abdominal pain. He did not had any significant difficulty in breathing. There is no prior cardiac history of any myocardial infarction or congestive cardiac failure. Patient denies any history of diabetes or any prior history of a stroke. On admission, a CT angiogram was done which showed questionable old blood clot, which may be old one and clinically overall history is not suggestive of acute pulmonary embolism. REVIEW OF THE SYSTEM: Otherwise unremarkable. PHYSICAL EXAMINATION: At present, reveals a 68-year-old gentleman who is not in any acute distress. Patient's heart rate is 100. He is afebrile. Blood pressure is 140/92 mmHg, oxygen saturation is 96%. HEENT examination is negative. Neck is supple. There is no increase in jugular venous pressure. Both the carotid pulses are felt. There is no bruit. Chest is symmetrical. Heart the PMI is not felt. First and second heart sounds are heard. Lungs are clear to auscultation and percussion. Abdomen is distended. Bowel sounds are hypoactive. Extremities, there is no evidence of any leg edema. Patient's echocardiogram shows overall normal left ventricular systolic function. Right ventricular systolic pressures are normal. EKG shows evidence of sinus tachycardia with a right bundle branch block pattern. FINAL IMPRESSION: This patient is primarily admitted with abdominal pain and an incarcerated inguinal hernia. Patient is stable cardiac núñez. There is no evidence of any overt congestive cardiac failure. Patient does not have any history suggestive of pulmonary embolism. Pulmonary consultation is also noted. The CT angiogram findings could be suggestive of an old clot or it could be an artifact. Patient is considered an acceptable risk for surgery. I will recommend to be used standard DVT prophylaxis in the postop period preferably with Xarelto 10 mg daily for 4-6 weeks. MMODL / IJN: [id number] /
--- NOTE | 2018-10-19 12:55 | ECHOF ---
Referral Reason: MEASUREMENTS -------- HEIGHT: 180.3 cm WEIGHT: 74.8 kg BP: IVSd: 1.2 cm (0.6 - 1.1) LVIDd: 3.8 cm (3.9 - 5.3) LVPWd: 1.0 cm (0.6 - 1.1) IVSs: 1.8 cm LVIDs: 1.8 cm LVPWs: 1.6 cm Ao Diam: 3.8 cm (2.0 - 3.7) AV Cusp: 2.3 cm (1.5 - 2.6) LA Diam: 2.9 cm (2.7 - 3.8) MV EXCURSION: 17.354 mm (> 18.000) MV EF SLOPE: 64 mm/s (70 - 150) EPSS: 0.6 cm MV E Myron: 0.69 m/s MV DecT: 103 ms MV A Myron: 0.82 m/s MV E/A Ratio: 0.84 RAP: 5.00 mmHg RVSP: 12.89 mmHg FINDINGS -------- Resting tachycardia (HR>100bpm). This was a technically difficult study with suboptimal views. The left ventricular size is normal. There is mild concentric left ventricular hypertrophy. Overa ll left ventricular systolic function is normal with, an EF between 55 - 60 %. RV Promident The left atrium is normal in size. The right atrium is normal in size. 5.0mg of Lumason was utilized for enhancement of images The aortic valve was not well visualized. The mitral valve was not well visualized. The tricuspid valve was not well visualized. The pulmonic valve was not well visualized. The pericardium is normal. CONCLUSIONS -------- 1. Resting tachycardia (HR>100bpm). 2. This was a technically difficult study with suboptimal views. 3. The left ventricular size is normal. 4. There is mild concentric left ventricular hypertrophy. 5. Overall left ventricular systolic function is normal with, an EF between 55 - 60 %. 6. RV Promident 7. The left atrium is normal in size. 8. The right atrium is normal in size. 9. 5.0mg of Lumason was utilized for enhancement of images 10. The aortic valve was not well visualized. 11. The mitral valve was not well visualized. 12. The tricuspid valve was not well visualized. 13. The pulmonic valve was not well visualized. 14. The pericardium is normal. PLANER CHAIN OFFBEARER: Magdalena Smith RDCS
--- NOTE | 2018-10-19 13:03 | P.PN ---
Subjective Progress Note Date: 10/19/18 Principal diagnosis: High-grade small bowel obstruction must status post left colectomy with end colostomy. Postoperative day #1 This is a very pleasant 68-year-old gentleman with presented to the emergency room with abdominal pain. He is found to have a high-grade bowel obstruction and is now status post left colectomy with end colostomy. We were consulted yesterday as a computed tomography scan showed an old clot in the right pulmonary artery. He was seen and evaluated by Dr. Carrillo. This was felt to be chronic and no need for anticoagulation. Today he is resting quite comfortably in bed. He is awake and alert in no acute distress. The patient is deaf. Interpreters at the bedside. Worsening shortness of breath, cough or congestion. He is maintaining O2 saturations in the 90s on room air. He's been afebrile. Hemodynamically stable. White count 5.0. Hemoglobin 14.3. Creatinine 0.53. Objective - Vital Signs Vital signs: Vital Signs Temp 97.4 F L 10/19/18 12:19 Pulse 100 10/19/18 12:19 Resp 18 10/19/18 05:10 BP 106/67 10/19/18 12:19 Pulse Ox 94 L 10/19/18 12:19 Intake & Output 10/18/18 10/19/18 10/19/18 18:59 06:59 18:59 Intake Total 2300 850 Output Total 140 100 Balance 2160 750 Intake: IV 1250 850 Ampicillin-Sulbactam 3 gm 100 In Sodium Chloride 0.9% 100 ml @ 200 mls/hr IVPB Q6H [facility] Rx#:[id number] Intake, IV Titration 1050 Amount Sodium Chloride 0.9% 1, 1050 000 ml @ 150 mls/hr IV . Q6H40M [facility] Rx#:[id number] Output: Urine 120 100 Estimated Blood Loss 20 Other: Voiding Method Indwelling Catheter Indwelling Catheter - Exam GENERAL EXAM: Alert, comfortable in no apparent distress. On room air. HEAD: Normocephalic. EYES: Normal reaction of pupils, equal size. NOSE: Nasogastric tube in place. Clear with pink turbinates. THROAT: No erythema or exudates. NECK: No masses, no JVD. CHEST: No chest wall deformity. LUNGS: Equal air entry with no crackles, wheeze, rhonchi or dullness. CVS: S1 and S2 normal with no audible murmur, regular rhythm. ABDOMEN: Surgical dressing is dry and intact. Ostomy patent. SPINE: No scoliosis or deformity SKIN: No rashes CENTRAL NERVOUS SYSTEM: No focal deficits, tone is normal in all 4 extremities. EXTREMITIES: There is no peripheral edema. No clubbing, no cyanosis. Peripheral pulses are intact. - Labs CBC & Chem 7: 10/19/18 07:03 10/19/18 07:03 Labs: Abnormal Lab Results - Last 24 Hours (Table) 10/19/18 10/19/18 Range/Units 07:03 07:03 Lymphocytes # 0.4 L (1.0-4.8) k/uL Creatinine 0.53 L (0.66-1.25) mg/dL Glucose 125 H (74-99) mg/dL Calcium 7.8 L (8.4-10.2) mg/dL Alkaline Phosphatase 32 L (38-126) U/L Total Protein 4.4 L (6.3-8.2) g/dL Albumin 2.3 L (3.5-5.0) g/dL Microbiology - Last 24 Hours (Table) 10/17/18 10:45 Group A Strep Throat Culture - Final Throat 10/17/18 10:45 Blood Culture - Preliminary Blood No Growth after 24 hours Assessment and Plan Assessment: Impression: #1 Colonic obstruction, status post left colectomy and end colostomy. Postoperative day #1. #2 Remote history of pulmonary embolism many years ago. Computed tomography scan reveals nonocclusive thrombus in the branch point of the right middle and lower lobe arteries. #3 Deafness. Plan: The patient was seen and evaluated by Dr. Carrillo. He is currently stable from the pulmonary standpoint. He is encouraged regarding the increased use of the incentive spirometer and cough and deep breathing exercises. Again, no need for anticoagulation for the chronic nonocclusive pulmonary embolism. We will follow the patient on as-needed basis. I, the cosigning physician, performed a history & physical examination of the patient. Lungs sounds are clear. Maintaining good O2 saturations in the 90s on room air. I discussed the assessment and plan of care with my nurse practitioner, Deloris Wan. I attest to the above note as dictated by her.
--- NOTE | 2018-10-19 13:57 | P.PN ---
Progress Note - Text Progress Note Date: 10/19/18 The patient's postoperative day 1 from exploratory laparotomy and left colectomy with end colostomy for obstructing colon cancer. The patient is feeling quite well. He has minimal complaints of pain. On exam his vital signs are stable. His abdomen is soft. Incision site is clean dry and intact. His colostomy is pink. Patient will have ice chips and popsicles today. I anticipate him being in the hospital for another 3-5 days.
--- NOTE | 2018-10-19 17:37 | PN ---
PROGRESS NOTE CHIEF COMPLAINT: Status post laparotomy and end colostomy. HISTORY OF PRESENT ILLNESS: This gentleman is stable postoperatively. Apparently had a large, obstructing colon carcinoma and has a colostomy. PHYSICAL EXAM: His color is good. He is awake and alert. Chest is clear. Cardiac exam is normal. Colostomy looks good with good perfusion and and viability. IMPRESSION: Obstructing carcinoma of the colon. PLAN: Follow with Surgery and referred to Oncology. MMODL / IJN: [id number] /
[2018-10-20] MEDS: HEPARIN SODIUM,PORCINE 5,000 UNIT/ML 1 ML VIAL SQ SCH ×3 (01:45→17:43)
[2018-10-20] MEDS: D5-0.45% NACL WITH KCL 20MEQ/L 1,000 ML IV SCH ×3 (02:30→18:49)
[2018-10-20] MEDS: AMPICILLIN-SULBACTAM 3 GM in SODIUM CHLORIDE 0.9% 100 ML IVPB SCH ×4 (02:59→21:22)
[2018-10-20] MEDS: HYDROmorphone 1 MG/ML 1 ML SYRINGE IVP PRN ×4 (07:36→21:21)
[2018-10-20] MEDS: PANTOPRAZOLE 40 MG/10 ML VIAL IVP SCH (07:42)
[2018-10-20 11:11] VITALS: BMI 21.7
--- NOTE | 2018-10-20 13:55 | P.PN ---
Progress Note - Text Progress Note Date: 10/20/18 The patient is doing well. He is in no apparent distress. He's had some output through his colostomy. There is some edema of the colostomy site. On exam his vital signs are stable. Abdomen soft. Incision site is clean dry and intact. The patient will have his diet slowly started. We will advance that as his bowel function improves. Dr. Solomon will be covering me next week.
--- NOTE | 2018-10-20 14:44 | PN ---
PROGRESS NOTE DATE OF SERVICE: 10/20/2018 CHIEF COMPLAINT: Bowel obstruction from cancer of the colon. HISTORY OF PRESENT ILLNESS: This gentleman is doing well. He seems comfortable. Vital signs are normal. Chest is clear. Cardiac exam is normal. The abdomen is soft and flat and the colostomy looks normal. 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 PLAN: Continue to follow with Surgery. He will be assessed by Oncology. MMODL / IJN: [id number] /
[2018-10-20] MEDS: CALCIUM ACETATE 667 MG CAP PO SCH ×2 (17:35→17:41)
[2018-10-20] MEDS: LACTATED RINGERS 1,000 ML IV SCH (17:38)
--- NOTE | 2018-10-20 18:28 | P.CONS ---
History of Present Illness - Reason for Consult Consult date: 10/19/18 (Late Entry patient seen 1830 on 10-19) Colon Cancer Requesting physician: Layo Brooks - Chief Complaint Abdominal Pain and SOB - History of Present Illness Mr. Busch is a 68-year-old male who originally presented to [facility] emergency on 10-17-18 with complaints of abdominal pain. Complained of Right testicular swelling, has had associated nausea and poor appetite. Denied vomiting. He has not moved bowels in 2 weeks. Complained of productive cough. Patient is deaf, translators available. Admitted to [facility] with exertion. CT scan abdomen and pelvis with contrast identified a high-grade small bowel obstruction secondary to a large right inguinal hernia containing distal ileum small bowel loops suspect a high-grade colon obstruction as well as transition point along the proximal to mid aspect of the very redundant sigmoid colon no free air mild to moderate pelvic ascites CT Scan of Chest identified a non occlusive thrombus right middle branch point of the pulmonary artery consistent with chronic thomboembolic disease, no acute thrombus or pulmonary embolis identified. Small hiatal hernia, aneurysmal ascending aorta at 4.4 cm was also noted. He has no significant past medical history as he has not been adherent to any regular preventative medical follow- ups. He drinks alcohol daily, shrugs with 3 or 4, and has signisficant tobacco cigarette use daily at least a pack per day. Lower extremity doppler negative for DVT. On 10/18/18 he was taken to surgery and underwent a partial omenectomy, left colectomy with ostomy, and hernia repair. He is recovering well from surgery yesterday. Pathology is still pending. Oncology has been consulted for suspicion of malignancy. Review of Systems A 14 point review of systems was obtained with help of translators at bedside Past Medical History Past Medical History: Unable to Obtain Additional Past Medical History / Comment(s): deaf History of Any Multi-Drug Resistant Organisms: Unobtainable Past Surgical History: Unable to Obtain Additional Past Surgical History / Comment(s): cyst from right hand removed, and rt hip Past Anesthesia/Blood Transfusion Reactions: No Reported Reaction Additional Past Anesthesia/Blood Transfusion Reaction / Comm: "has never recieved any blood transfusions" Past Psychological History: Unable to Obtain Smoking Status: Unknown if ever smoked Past Alcohol Use History: Unable to Obtain Past Drug Use History: Unable to Obtain - Past Family History Father History Unknown: Yes Mother History Unknown: Yes Medications and Allergies Home Medications Medication Instructions Recorded Confirmed Type Doxylamine Succinate [Unisom] 25 mg PO HS PRN 10/17/18 10/17/18 History Docusate [Colace] 100 mg PO BID #20 capsule 10/20/18 Rx HYDROcodone/APAP 7.5-325MG [Wickes 1 tab PO Q4H PRN 3 Days #18 tab 10/20/18 Rx 7.5-325] Allergies Allergy/AdvReac Type Severity Reaction Status Date / Time No Known Allergies Allergy Verified 10/17/18 13:06 Physical Exam Vitals: Vital Signs Temp Pulse Resp BP Pulse Ox 10/20/18 16:00 101 H 16 10/20/18 14:25 97.6 F 101 H 16 136/90 97 10/20/18 08:00 106 H 18 10/20/18 05:00 97.2 F L 106 H 18 128/69 92 L 10/19/18 21:00 97.5 F L 94 18 129/74 91 L Intake and Output 10/20/18 10/20/18 10/20/18 06:59 14:59 22:59 Intake Total 800 Output Total 650 Balance 150 Intake: IV 200 Ampicillin-Sulbactam 3 gm 200 In Sodium Chloride 0.9% 100 ml @ 200 mls/hr IVPB Q6H [facility] Rx#:[id number] Intake, IV Titration 600 Amount D5-0.45% NaCl with KCl 600 20Meq/l 1,000 ml @ 125 mls/hr IV .Q8H [facility] Rx#: [id number] Output: Gastric Drainage 300 Urine 350 Other: Voiding Method Indwelling Catheter Indwelling Catheter Indwelling Catheter Weight 74.843 kg 74.843 kg GEN: Alert, NAD HEAD: NC, NT EYES: Non-icterus, EOM intact NOSE: Nasogastric tube in place. MOUTH: No Thrush NECK: supple, no adenopathy cervical or axillary LUNGS: no increased effort, CTA B HEART: S1 and S2 normal ABDOMEN: Dressing Clean dry and intact. Ostomy pink patent. SKIN: No rashes NEURO: No focal deficits EXT: No edema noted in extremities Results CBC & Chem 7: 10/19/18 07:03 10/19/18 07:03 Labs: Microbiology - Last 24 Hours (Table) 10/17/18 10:45 Blood Culture - Preliminary Blood No Growth after 72 hours 10/17/18 19:40 Urine Culture - Final Urine,Voided CT scan - abdomen: report reviewed CT scan - chest: report reviewed CT scan - pelvis: report reviewed Assessment and Plan Plan: Assessment and Recommendations: 1. High Grade Bowel Obstruction: Post-operative cause obstructive tumor - Await final Pathology - Status Post Colectomy with End Colostomy, Hernia repair as well as partial omenectomy - Surgical Recs 2. ETOH and TObacco Abuse: Cessation greater than 3 minutes provided 3. Remote History of Pulmonary Emblism with identifiaction of chronic thrombus at right pulmonary artery branch: - Doppler neg - Agree with rophylaxic anticoagulation with chronic appearance Thank you for allowing us to participate in the care of this patient we will await final pathology and proceed with recs if malignant cells identified. Appears no distant metastatic disease on initial CT scans. Agree with prophylaxic anticoagulation as chronic thrombus identified with out evidence of acute filling defect.
[2018-10-21] MEDS: HYDROmorphone 1 MG/ML 1 ML SYRINGE IVP PRN ×5 (01:49→22:47)
[2018-10-21] MEDS: HEPARIN SODIUM,PORCINE 5,000 UNIT/ML 1 ML VIAL SQ SCH ×3 (01:54→15:05)
[2018-10-21] MEDS: AMPICILLIN-SULBACTAM 3 GM in SODIUM CHLORIDE 0.9% 100 ML IVPB SCH ×4 (03:48→22:01)
[2018-10-21] MEDS: D5-0.45% NACL WITH KCL 20MEQ/L 1,000 ML IV SCH ×3 (03:49→11:43)
[2018-10-21] MEDS: PANTOPRAZOLE 40 MG/10 ML VIAL IVP SCH (08:05)
[2018-10-21] MEDS: CALCIUM ACETATE 667 MG CAP PO SCH ×3 (08:05→15:19)
--- NOTE | 2018-10-21 11:32 | P.PN ---
Subjective Progress Note Date: 10/21/18 Principal diagnosis: . Marin's procedure Patient feels somewhat bloated. He is having good flatus through the ostomy. He is afebrile. No nausea or vomiting. Tolerating clears. Objective - Vital Signs Vital signs: Vital Signs Temp 97.4 F L 10/21/18 05:00 Pulse 91 10/21/18 08:00 Resp 16 10/21/18 08:00 BP 133/84 10/21/18 05:00 Pulse Ox 98 10/21/18 08:29 Intake & Output 10/20/18 10/21/18 10/21/18 18:59 06:59 18:59 Intake Total 1790 Output Total 110 10 Balance 1680 -10 Weight 74.843 kg Intake: Intake, IV Titration 1200 Amount Ampicillin-Sulbactam 3 gm 200 In Sodium Chloride 0.9% 100 ml @ 200 mls/hr IVPB Q6H [facility] Rx#:[id number] D5-0.45% NaCl with KCl 1000 20Meq/l 1,000 ml @ 125 mls/hr IV .Q8H [facility] Rx#: [id number] Oral 590 Output: Drainage 10 10 Abdomen 10 10 Urine 100 Other: Voiding Method Indwelling Catheter Urinal Urinal # Voids 4 - Exam Abdomen: Soft, mild distention, mild tenderness, dressing clean and dry, ostomy pink - Labs CBC & Chem 7: 10/19/18 07:03 10/19/18 07:03 Labs: Microbiology - Last 24 Hours (Table) 10/17/18 10:45 Blood Culture - Preliminary Blood No Growth after 72 hours Assessment and Plan (1) Large bowel obstruction Narrative/Plan: Continue clear liquid diet. Add Toradol. Ambulate. Current Visit: Yes Status: Acute Code(s): K56.609 - UNSP INTESTNL OBST, UNSP TO PARTIAL VERSUS COMPLETE OBST SNOMED Code(s): 233686433
[2018-10-21] MEDS: KETOROLAC 30 MG/ML 1 ML VIAL IVP SCH ×2 (11:40→19:11)
[2018-10-21 15:28] LABS: Basophils % (A) 0 %; Eosinophils # (A) 0.1 k/uL (0-0.7); Eosinophils % (A) 2 %; HCT 45.7 % (39.0-53.0); HGB 14.9 gm/dL (13.0-17.5); Lymphocytes # (A) 0.7 k/uL (1.0-4.8); Lymphocytes % (A) 21 %; MCH 31.9 pg (25.0-35.0); MCHC 32.7 g/dL (31.0-37.0); MCV 97.5 fL (80.0-100.0); Mean Platelet Volume 7.3; Monocytes # (A) 0.3 k/uL (0-1.0); Monocytes % (A) 8 %; Neutrophils # (A) 2.2 k/uL (1.3-7.7); Neutrophils % (A) 67 %; Platelet Count 118 k/uL (150-450); RBC 4.68 m/uL (4.30-5.90); RDW 12.7 % (11.5-15.5); WBC 3.2 k/uL (3.8-10.6)
[2018-10-21 15:35] LABS: ALT 24 U/L (21-72); AST 20 U/L (17-59); Albumin 2.6 g/dL (3.5-5.0); Alkaline Phosphatase 43 U/L (38-126); Anion Gap 7 mmol/L; Blood Urea Nitrogen 4 mg/dL (9-20); Calcium 8.2 mg/dL (8.4-10.2); Carbon Dioxide 30 mmol/L (22-30); Chloride 96 mmol/L (98-107); Glucose 113 mg/dL (74-99); Potassium 3.6 mmol/L (3.5-5.1); Sodium 133 mmol/L (137-145); Total Bilirubin 0.7 mg/dL (0.2-1.3); Total Protein 4.9 g/dL (6.3-8.2)
[2018-10-21] MEDS: IPRATROPIUM-ALBUTEROL 3 ML NEB INHALATION SCH ×2 (15:36→19:20)
--- NOTE | 2018-10-21 17:47 | XR ---
EXAMINATION TYPE: XR chest 2V DATE OF EXAM: 10/21/2018 COMPARISON: 10/17/2018 HISTORY: Chest pain TECHNIQUE: Frontal and lateral views of the chest are obtained. FINDINGS: There is blunting of right costophrenic angle. There is no heart failure. There is infiltr ate at the right lung base. Heart size is normal. Thoracic aorta is atheromatous. IMPRESSION: There is new right lower lobe infiltrate and atelectasis compared to old exam. No heart failure seen.
--- NOTE | 2018-10-21 18:24 | PN ---
PROGRESS NOTE CHIEF COMPLAINT: Status post left colectomy. HISTORY OF PRESENT ILLNESS: This gentleman is doing fairly well. It is difficult to communicate with him, but he seems to be having a little discomfort either in the upper abdomen or lower chest. When he was up and about, he became very dyspneic and his pulse went up and his oxygen dropped. He denies any significant chest pain, cough, shortness of breath, etc. PHYSICAL EXAM: His chest is fairly clear. Cardiac exam is normal. The bowel sounds are present. IMPRESSION: 1. Status post left colectomy for carcinoma of colon. 2. Upper abdominal or chest discomfort, etiology unknown. 3. Respiratory insufficiency. PLAN: 1. Start updrafts. 2. Chest x-ray. 3. Laboratory studies. 4. Dean Of [employer] helped to make sure the patient understood his diagnosis and he has not yet been seen by Oncology. WARREN / DEIDRE: [id number] /
[2018-10-21] MEDS: HYDROcodone/APAP 5-325MG 1 EACH TAB PO PRN (19:33)
[2018-10-22] MEDS: HEPARIN SODIUM,PORCINE 5,000 UNIT/ML 1 ML VIAL SQ SCH ×3 (02:56→18:23)
[2018-10-22] MEDS: KETOROLAC 30 MG/ML 1 ML VIAL IVP SCH ×4 (02:56→18:21)
[2018-10-22] MEDS: HYDROmorphone 1 MG/ML 1 ML SYRINGE IVP PRN (02:57)
[2018-10-22] MEDS: AMPICILLIN-SULBACTAM 3 GM in SODIUM CHLORIDE 0.9% 100 ML IVPB SCH ×4 (03:02→21:43)
[2018-10-22] MEDS: D5-0.45% NACL WITH KCL 20MEQ/L 1,000 ML IV SCH ×3 (03:50→21:45)
[2018-10-22] MEDS: IPRATROPIUM-ALBUTEROL 3 ML NEB INHALATION SCH ×4 (07:12→19:38)
[2018-10-22] MEDS: CALCIUM ACETATE 667 MG CAP PO SCH ×3 (08:28→18:32)
[2018-10-22] MEDS: PANTOPRAZOLE 40 MG/10 ML VIAL IVP SCH (09:00)
--- NOTE | 2018-10-22 12:41 | P.PN ---
Subjective Progress Note Date: 10/22/18 Principal diagnosis: . Marin's procedure Patient states he feels better today. Tolerating clears. Good ostomy function. No nausea or vomiting. Objective - Vital Signs Vital signs: Vital Signs Temp 98.1 F 10/22/18 05:00 Pulse 86 10/22/18 11:47 Resp 16 10/22/18 08:00 BP 119/77 10/22/18 05:00 Pulse Ox 94 L 10/22/18 05:00 Intake & Output 10/21/18 10/22/18 10/22/18 18:59 06:59 18:59 Output Total 1220 1150 10 Balance -1220 -1150 -10 Weight 74.843 kg Output: Drainage 20 10 Abdomen 20 10 Urine 1200 550 Stool 600 Other: Voiding Method Urinal Urinal Urinal # Voids 4 # Bowel Movements 1 - Exam Abdomen: Soft, nondistended, mild tenderness, incision clean and dry, large right scrotal hernia chronic in nature - Labs CBC & Chem 7: 10/21/18 15:03 10/21/18 15:03 Labs: Abnormal Lab Results - Last 24 Hours (Table) 10/21/18 10/21/18 Range/Units 15:03 15:03 WBC 3.2 L (3.8-10.6) k/uL Plt Count 118 L (150-450) k/uL Lymphocytes # 0.7 L (1.0-4.8) k/uL Sodium 133 L (137-145) mmol/L Chloride 96 L (98-107) mmol/L BUN 4 L (9-20) mg/dL Creatinine 0.42 L (0.66-1.25) mg/dL Glucose 113 H (74-99) mg/dL Calcium 8.2 L (8.4-10.2) mg/dL Total Protein 4.9 L (6.3-8.2) g/dL Albumin 2.6 L (3.5-5.0) g/dL Microbiology - Last 24 Hours (Table) 10/17/18 10:45 Blood Culture - Preliminary Blood No Growth after 96 hours Assessment and Plan (1) Large bowel obstruction Narrative/Plan: Slowly advance diet. Monitor bowel function. Increase activities. Current Visit: Yes Status: Acute Code(s): K56.609 - UNSP INTESTNL OBST, UNSP TO PARTIAL VERSUS COMPLETE OBST SNOMED Code(s): 636050368
--- NOTE | 2018-10-22 12:51 | PN ---
PROGRESS NOTE CHIEF COMPLAINT: CA of the colon status post left colectomy. HISTORY OF PRESENT ILLNESS: This gentleman is doing fairly well. He has had no problems. When he gets up and ambulates, however, he becomes slightly hypoxic and his pulse shoots up. He does not experience any pain. PHYSICAL EXAM: Chest is clear. Cardiac exam is normal. Abdomen is soft. Colostomy looks good. IMPRESSION: 1. Status post left colectomy for carcinoma of the colon. 2. Chronic obstructive pulmonary disease. PLAN: Continue with current program and probably discharge in the next day or 2. MMODL / IJN: [id number] /
[2018-10-23] MEDS: HEPARIN SODIUM,PORCINE 5,000 UNIT/ML 1 ML VIAL SQ SCH ×4 (00:22→23:54)
[2018-10-23] MEDS: KETOROLAC 30 MG/ML 1 ML VIAL IVP SCH ×5 (00:24→23:55)
[2018-10-23] MEDS: AMPICILLIN-SULBACTAM 3 GM in SODIUM CHLORIDE 0.9% 100 ML IVPB SCH ×4 (03:26→21:57)
[2018-10-23] MEDS: IPRATROPIUM-ALBUTEROL 3 ML NEB INHALATION SCH ×4 (07:20→19:28)
[2018-10-23] MEDS: PANTOPRAZOLE 40 MG TABLET PO SCH (07:47)
[2018-10-23] MEDS: HYDROcodone/APAP 5-325MG 1 EACH TAB PO PRN ×3 (11:27→23:54)
[2018-10-23] MEDS: CALCIUM ACETATE 667 MG CAP PO SCH ×3 (11:33→17:33)
--- NOTE | 2018-10-23 11:37 | P.PN ---
Subjective Progress Note Date: 10/23/18 Principal diagnosis: . Marin's procedure Patient doing well today. Tolerating diet. Good ostomy function. Objective - Vital Signs Vital signs: Vital Signs Temp 98.2 F 10/23/18 05:00 Pulse 110 H 10/23/18 07:30 Resp 20 10/23/18 05:00 BP 143/86 10/23/18 05:00 Pulse Ox 98 10/23/18 05:00 Intake & Output 10/22/18 10/23/18 10/23/18 18:59 06:59 18:59 Intake Total 1640 Output Total 495 800 Balance -495 840 Weight 74.843 kg Intake: IV 200 Ampicillin-Sulbactam 3 gm 200 In Sodium Chloride 0.9% 100 ml @ 200 mls/hr IVPB Q6H [facility] Rx#:[id number] Intake, IV Titration 1200 Amount D5-0.45% NaCl with KCl 1200 20Meq/l 1,000 ml @ 100 mls/hr IV .Q10H [facility] Rx#: [id number] Oral 240 Output: Drainage 20 Abdomen 20 Urine 275 800 Stool 200 Other: Voiding Method Urinal Urinal Urinal # Voids 4 # Bowel Movements 2 - Exam Abdomen: Soft, nondistended, incisions clean and dry - Labs CBC & Chem 7: 10/21/18 15:03 10/21/18 15:03 Labs: Microbiology - Last 24 Hours (Table) 10/17/18 10:45 Blood Culture - Preliminary Blood No Growth after 120 hours Assessment and Plan (1) Large bowel obstruction Narrative/Plan: Increase diet. Decrease IV fluid rate. Home 24-48 hours. Current Visit: Yes Status: Acute Code(s): K56.609 - UNSP INTESTNL OBST, UNSP TO PARTIAL VERSUS COMPLETE OBST SNOMED Code(s): 633128627
[2018-10-23] MEDS: D5-0.45% NACL WITH KCL 20MEQ/L 1,000 ML IV SCH ×2 (13:23→15:26)
[2018-10-23] MEDS: METOPROLOL SUCCINATE (ER) 50 MG TAB.ER.24H PO SCH (15:21)
--- NOTE | 2018-10-23 18:04 | PN ---
PROGRESS NOTE CHIEF COMPLAINT: Status post left colectomy for carcinoma of the colon. HISTORY OF PRESENT ILLNESS: This gentleman is doing fairly well. He still develops tachycardia when he is up and about. He has been informed of the diagnosis. PHYSICAL EXAM: Chest is clear. Cardiac exam is normal. The abdomen is soft and nontender. Bowel sounds are present. Colostomy looks good. IMPRESSION: 1. Status post left colectomy for carcinoma of the colon. 2. Chronic obstructive pulmonary disease. 3. Hypoxia and tachycardia with exertion. PLAN: Add metoprolol to his program. He will be given 50 mg twice a day. Full code . MMODL / IJN: [id number] /
[2018-10-24] MEDS: AMPICILLIN-SULBACTAM 3 GM in SODIUM CHLORIDE 0.9% 100 ML IVPB SCH ×3 (03:13→16:19)
[2018-10-24] MEDS: HYDROcodone/APAP 5-325MG 1 EACH TAB PO PRN ×2 (06:09→18:21)
[2018-10-24] MEDS: KETOROLAC 30 MG/ML 1 ML VIAL IVP SCH ×3 (06:10→18:20)
[2018-10-24] MEDS: D5-0.45% NACL WITH KCL 20MEQ/L 1,000 ML IV SCH ×2 (06:12→16:27)
[2018-10-24] MEDS: IPRATROPIUM-ALBUTEROL 3 ML NEB INHALATION SCH ×4 (07:21→19:45)
[2018-10-24] MEDS: HEPARIN SODIUM,PORCINE 5,000 UNIT/ML 1 ML VIAL SQ SCH ×2 (09:30→16:29)
[2018-10-24] MEDS: PANTOPRAZOLE 40 MG TABLET PO SCH (09:30)
[2018-10-24] MEDS: CALCIUM ACETATE 667 MG CAP PO SCH ×3 (09:30→18:21)
[2018-10-24] MEDS: METOPROLOL SUCCINATE (ER) 50 MG TAB.ER.24H PO SCH (09:31)
--- NOTE | 2018-10-24 14:20 | P.PN ---
Subjective Progress Note Date: 10/24/18 Principal diagnosis: . Marin's procedure Patient doing well. Eating more diet. Good ostomy function. He is ambulating. He is changing his own ostomy appliances. Objective - Vital Signs Vital signs: Vital Signs Temp 98.2 F 10/24/18 05:00 Pulse 74 10/24/18 11:57 Resp 16 10/24/18 05:00 BP 126/83 10/24/18 05:00 Pulse Ox 99 10/24/18 05:00 Intake & Output 10/23/18 10/24/18 10/24/18 18:59 06:59 18:59 Output Total 700 Balance -700 Weight 74.843 kg 74.843 kg Output: Urine 600 Stool 100 Other: Voiding Method Urinal Urinal - Exam Abdomen: Soft, nondistended, incision clean and dry, ostomy function - Labs CBC & Chem 7: 10/21/18 15:03 10/21/18 15:03 Labs: Microbiology - Last 24 Hours (Table) 10/17/18 10:45 Blood Culture - Final Blood No Growth after 144 hours Assessment and Plan (1) Large bowel obstruction Narrative/Plan: Continue diet as tolerated. Continue ambulation. Probable discharge tomorrow. Current Visit: Yes Status: Acute Code(s): K56.609 - UNSP INTESTNL OBST, UNSP TO PARTIAL VERSUS COMPLETE OBST SNOMED Code(s): 707644891
[2018-10-25] MEDS: HEPARIN SODIUM,PORCINE 5,000 UNIT/ML 1 ML VIAL SQ SCH ×3 (01:41→17:42)
[2018-10-25] MEDS: KETOROLAC 30 MG/ML 1 ML VIAL IVP SCH ×2 (01:41→05:23)
[2018-10-25] MEDS: HYDROcodone/APAP 5-325MG 1 EACH TAB PO PRN ×2 (02:09→08:57)
[2018-10-25] MEDS: D5-0.45% NACL WITH KCL 20MEQ/L 1,000 ML IV SCH ×2 (03:08→13:26)
[2018-10-25 07:16] LABS: Basophils % (A) 1 %; Eosinophils # (A) 0.2 k/uL (0-0.7); Eosinophils % (A) 5 %; HCT 42.1 % (39.0-53.0); HGB 13.4 gm/dL (13.0-17.5); Lymphocytes # (A) 1.1 k/uL (1.0-4.8); Lymphocytes % (A) 30 %; MCH 30.9 pg (25.0-35.0); MCHC 31.9 g/dL (31.0-37.0); MCV 96.7 fL (80.0-100.0); Monocytes # (A) 0.3 k/uL (0-1.0); Monocytes % (A) 8 %; Neutrophils # (A) 1.9 k/uL (1.3-7.7); Neutrophils % (A) 52 %; Platelet Count 158 k/uL (150-450); RBC 4.35 m/uL (4.30-5.90); WBC 3.6 k/uL (3.8-10.6)
[2018-10-25 07:26] LABS: Anion Gap 3 mmol/L; Blood Urea Nitrogen 4 mg/dL (9-20); Calcium 8.1 mg/dL (8.4-10.2); Carbon Dioxide 28 mmol/L (22-30); Chloride 103 mmol/L (98-107); Glucose 80 mg/dL (74-99); Potassium 3.9 mmol/L (3.5-5.1); Sodium 134 mmol/L (137-145)
[2018-10-25] MEDS: IPRATROPIUM-ALBUTEROL 3 ML NEB INHALATION SCH ×4 (08:13→19:51)
[2018-10-25] MEDS: METOPROLOL SUCCINATE (ER) 50 MG TAB.ER.24H PO SCH (08:49)
[2018-10-25] MEDS: PANTOPRAZOLE 40 MG TABLET PO SCH (08:49)
[2018-10-25] MEDS: CALCIUM ACETATE 667 MG CAP PO SCH ×3 (08:50→17:41)
--- NOTE | 2018-10-25 15:25 | DS ---
DISCHARGE SUMMARY CHIEF COMPLAINT: Abdominal pain and bowel obstruction. HISTORY OF PRESENT ILLNESS AND PHYSICAL EXAM: Details of this man's history and physical can be found in the initial workup. LABORATORY STUDIES: While he was in the hospital, he had laboratory studies, details of which can be found in the laboratory section of his chart. COURSE IN THE HOSPITAL: After admission, he was placed on bedrest, started on intravenous fluids and seen in consultation by Surgery. He was taken to the operating room. It is expected that he may have a bowel obstruction secondary to a large right inguinal hernia, but it turned out that he had a large colorectal cancer. He had a left colectomy and did fairly well postoperatively. It was felt that he probably should be and extended care facility for a period of time since he is deaf and cannot speak and does not have a phone. He also lives alone. However, insurance denied this and will try to send him home with home care. He will go home on light activity about the house and will be followed by home care. Will see him in the office in roughly a week for followup. MMODL / IJN: [id number] /
--- NOTE | 2018-10-25 16:14 | P.PN ---
Subjective Progress Note Date: 10/25/18 Principal diagnosis: colon resection for obstructing mass Pt seen in f/u, there were no path results this AM when pt seen. Pt denied any uncontrolled pain, he denied any physical c/o or needs. Objective - Vital Signs Vital signs: Vital Signs Temp 97.3 F L 10/25/18 12:35 Pulse 88 10/25/18 15:37 Resp 16 10/25/18 12:35 BP 150/90 10/25/18 12:35 Pulse Ox 96 10/25/18 12:35 Intake & Output 10/24/18 10/25/18 10/25/18 18:59 06:59 18:59 Weight 74.843 kg Other: Voiding Method Urinal Urinal Urinal - Exam A&O to self, place and time, NAD, respirations even and unlabored, pt is unable to hear, communicates with writing things down. - Constitutional General appearance: Present: average body habitus, cooperative, no acute distress - EENT Eyes: Present: anicteric sclerae - Labs CBC & Chem 7: 10/25/18 06:49 10/25/18 06:49 Labs: Abnormal Lab Results - Last 24 Hours (Table) 10/25/18 10/25/18 Range/Units 06:49 06:49 WBC 3.6 L (3.8-10.6) k/uL Sodium 134 L (137-145) mmol/L BUN 4 L (9-20) mg/dL Creatinine 0.57 L (0.66-1.25) mg/dL Calcium 8.1 L (8.4-10.2) mg/dL Assessment and Plan (1) Colon adenocarcinoma Narrative/Plan: Pathology resulted after pt discharged. Will request biomarker analysis for KRAS, NRAS, BRAF and MSI on tumor Based on obstructing tumor and 1 LN positive for disease involvement, recommendation would be for adjuvant chemo, to reduce the risk of recurrence and metastasis. Chemotherapy would not be ordered until at least 4-6 weeks post op based on pt recovery from surgery. Will attempt to contact pt for f/u appt. As of note, pt has no alternate contact/emergency contacts. Current Visit: Yes Status: Acute Priority: High Code(s): C18.9 - MALIGNANT NEOPLASM OF COLON, UNSPECIFIED SNOMED Code(s): 125310388
--- NOTE | 2018-10-25 17:39 | PN ---
PROGRESS NOTE DATE OF SERVICE: 10/24/2018. CHIEF COMPLAINT: Status post left colectomy. HISTORY OF PRESENT ILLNESS: Patient is stable, doing well. Working on discharge plan. PHYSICAL EXAM: Bowel sounds are present. Chest is clear. Cardiac exam is normal. IMPRESSION: Status post left colectomy for carcinoma of the colon. PLAN: Work on discharge arrangements. MMODL / IJN: [id number] /
--- NOTE | 2018-10-25 20:12 | P.PN ---
Subjective Progress Note Date: 10/25/18 Principal diagnosis: . Marin's procedure Patient without new complaints. He was discovered today that the patient is homeless. Apparently his insurance company has denied rehab consult. He is tolerating diet. Mild pain. White blood cell count 3.6. Objective - Vital Signs Vital signs: Vital Signs Temp 97.3 F L 10/25/18 12:35 Pulse 86 10/25/18 20:05 Resp 16 10/25/18 12:35 BP 150/90 10/25/18 12:35 Pulse Ox 93 L 10/25/18 19:53 Intake & Output 10/25/18 10/25/18 10/26/18 06:59 18:59 06:59 Other: Voiding Method Urinal Urinal - Exam Abdomen: Soft, minimal distention, dressing clean dry, minimal tenderness - Labs CBC & Chem 7: 10/25/18 06:49 10/25/18 06:49 Labs: Abnormal Lab Results - Last 24 Hours (Table) 10/25/18 10/25/18 Range/Units 06:49 06:49 WBC 3.6 L (3.8-10.6) k/uL Sodium 134 L (137-145) mmol/L BUN 4 L (9-20) mg/dL Creatinine 0.57 L (0.66-1.25) mg/dL Calcium 8.1 L (8.4-10.2) mg/dL Assessment and Plan (1) Large bowel obstruction Narrative/Plan: Continue low fiber diet. Ambulate. Discharge planning in progress. Current Visit: Yes Status: Acute Code(s): K56.609 - UNSP INTESTNL OBST, UNSP TO PARTIAL VERSUS COMPLETE OBST SNOMED Code(s): 926152140
[2018-10-26] MEDS: HYDROcodone/APAP 5-325MG 1 EACH TAB PO PRN ×2 (00:25→21:49)
[2018-10-26] MEDS: HYDROmorphone 1 MG/ML 1 ML SYRINGE IVP PRN ×2 (00:26→04:32)
[2018-10-26] MEDS: HEPARIN SODIUM,PORCINE 5,000 UNIT/ML 1 ML VIAL SQ SCH ×4 (00:27→23:04)
[2018-10-26] MEDS: D5-0.45% NACL WITH KCL 20MEQ/L 1,000 ML IV SCH ×4 (02:50→23:04)
[2018-10-26] MEDS: CALCIUM ACETATE 667 MG CAP PO SCH ×3 (08:23→17:33)
[2018-10-26] MEDS: PANTOPRAZOLE 40 MG TABLET PO SCH (08:23)
[2018-10-26] MEDS: METOPROLOL SUCCINATE (ER) 50 MG TAB.ER.24H PO SCH (08:23)
[2018-10-26] MEDS: IPRATROPIUM-ALBUTEROL 3 ML NEB INHALATION SCH ×4 (09:09→20:55)
--- NOTE | 2018-10-26 19:00 | P.PN ---
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 Most likely treatment recommendations would consist of regimen of FOLFOX versus Xelox. This will be deferred to Dr. Prabhakar at his outpatient follow-up appointment. In the event of FOLFOX a mediport will be needed for chemotherapy, a mediport will also be beneficial for XELOX as oxaliplatin can be irritating to veins. We discussed risks and benefits of this. Pathological Staging T3, N1, M0 with high risk features of colonic obstruction on presentation Objective - Vital Signs Vital signs: Vital Signs Temp 96.8 F L 10/26/18 11:43 Pulse 85 10/26/18 11:43 Resp 18 10/26/18 04:55 BP 129/73 10/26/18 11:43 Pulse Ox 94 L 10/26/18 11:43 Intake & Output 10/25/18 10/26/18 10/26/18 18:59 06:59 18:59 Output Total 175 Balance -175 Output: Urine 175 Other: Voiding Method Urinal Urinal - Exam GEN: Alert, NAD HEAD: NC, NT EYES: Non-icterus, EOM intact NOSE: Nasogastric tube in place. MOUTH: No Thrush NECK: supple, no adenopathy cervical or axillary LUNGS: no increased effort, CTA B HEART: S1 and S2 normal ABDOMEN: Dressing Clean dry and intact. Ostomy pink patent. SKIN: No rashes NEURO: No focal deficits EXT: No edema noted in extremities - Labs CBC & Chem 7: 10/25/18 06:49 10/25/18 06:49 Assessment and Plan Plan: Assessment and Recommendations: 1. High Grade Bowel Obstruction: Post-operative cause obstructive tumor - Reviewed final pathology with patient, Await MSI testing - Pathological staging T3, N1, M0 - Status Post Colectomy with End Colostomy, Hernia repair as well as partial omenectomy - Adjuvant chemotherapy recommended with FOLFOX or Xelox, to be determined at first follow-up as outpatient with Dr. Prabhakar 2. ETOH and TObacco Abuse: Cessation continued 3. 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 Agree with prophylaxic anticoagulation as chronic thrombus identified with out evidence of acute filling defect. Adjuvant chemotherapy will be recommended with high grade obstruction on presentation and lymph Node Positive results. Homeless will need Social Work to help assist with nursing home placement and transportation for upcoming recommended treatments. - If patient is expected to be hospitalized longer than next 24-48 hours could consider placement of mediport for anticipated chemotherapy
--- NOTE | 2018-10-26 19:38 | P.PN ---
Subjective Progress Note Date: 10/26/18 Principal diagnosis: . Marin's procedure Patient doing well today. Pain is improved. Less bloated feeling. Tolerating diet. Good ostomy function. Objective - Vital Signs Vital signs: Vital Signs Temp 96.8 F L 10/26/18 11:43 Pulse 90 10/26/18 15:49 Resp 18 10/26/18 04:55 BP 129/73 10/26/18 11:43 Pulse Ox 94 L 10/26/18 11:43 Intake & Output 10/26/18 10/26/18 10/27/18 06:59 18:59 06:59 Output Total 175 Balance -175 Output: Urine 175 Other: Voiding Method Urinal - Exam Abdomen: Soft, nondistended, nontender, incision clean and dry, ostomy functioning - Labs CBC & Chem 7: 10/25/18 06:49 10/25/18 06:49 Assessment and Plan (1) Large bowel obstruction Narrative/Plan: Continue diet as tolerated. Ambulate. Discharge planning. Current Visit: Yes Status: Acute Code(s): K56.609 - UNSP INTESTNL OBST, UNSP TO PARTIAL VERSUS COMPLETE OBST SNOMED Code(s): 055057735
[2018-10-27] MEDS: HYDROcodone/APAP 5-325MG 1 EACH TAB PO PRN ×2 (06:23→13:12)
[2018-10-27] MEDS: IPRATROPIUM-ALBUTEROL 3 ML NEB INHALATION SCH ×2 (08:21→11:52)
[2018-10-27] MEDS: PANTOPRAZOLE 40 MG TABLET PO SCH (09:06)
[2018-10-27] MEDS: METOPROLOL SUCCINATE (ER) 50 MG TAB.ER.24H PO SCH (09:06)
[2018-10-27] MEDS: CALCIUM ACETATE 667 MG CAP PO SCH ×2 (09:06→13:12)
[2018-10-27] MEDS: HEPARIN SODIUM,PORCINE 5,000 UNIT/ML 1 ML VIAL SQ SCH (09:06)
--- NOTE | 2018-10-27 09:29 | P.PN ---
Subjective Progress Note Date: 10/27/18 Principal diagnosis: . Marin's procedure Patient doing well today. Tolerating diet. Discharge planning remains an issue. Denies nausea or vomiting. Objective - Vital Signs Vital signs: Vital Signs Temp 98.4 F 10/27/18 05:00 Pulse 92 10/27/18 08:37 Resp 16 10/27/18 05:00 BP 135/81 10/27/18 05:00 Pulse Ox 93 L 10/27/18 05:00 Intake & Output 10/26/18 10/27/18 10/27/18 18:59 06:59 18:59 Intake Total 800 Output Total 200 Balance 600 Weight 74.843 kg Intake: Intake, IV Titration 800 Amount D5-0.45% NaCl with KCl 800 20Meq/l 1,000 ml @ 100 mls/hr IV .Q10H LASHONDA Rx#: [id number] Output: Stool 200 Other: Voiding Method Urinal Toilet Urinal # Voids 1 - Exam Abdomen: Soft, minimal distention, nontender, incision clean and dry - Labs CBC & Chem 7: 10/25/18 06:49 10/25/18 06:49 Assessment and Plan (1) Large bowel obstruction Narrative/Plan: Continue diet as tolerated. Discharge per primary service when social work issues finalized. Current Visit: Yes Status: Acute Code(s): K56.609 - UNSP INTESTNL OBST, UNSP TO PARTIAL VERSUS COMPLETE OBST SNOMED Code(s): 841842031
--- NOTE | 2018-10-27 10:39 | P.PN ---
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, discharge continues to be issue Objective - Vital Signs Vital signs: Vital Signs Temp 98.4 F 10/27/18 05:00 Pulse 92 10/27/18 08:37 Resp 16 10/27/18 05:00 BP 135/81 10/27/18 05:00 Pulse Ox 93 L 10/27/18 05:00 Intake & Output 10/26/18 10/27/18 10/27/18 18:59 06:59 18:59 Intake Total 800 Output Total 200 Balance 600 Weight 74.843 kg Intake: Intake, IV Titration 800 Amount D5-0.45% NaCl with KCl 800 20Meq/l 1,000 ml @ 100 mls/hr IV .Q10H LASHONDA Rx#: [id number] Output: Stool 200 Other: Voiding Method Urinal Toilet Toilet Urinal Urinal # Voids 1 - Exam GEN: Alert, NAD HEAD: NC, NT EYES: Non-icterus, EOM intact NOSE: Nasogastric tube in place. MOUTH: No Thrush NECK: supple, no adenopathy cervical or axillary LUNGS: no increased effort, CTA B HEART: S1 and S2 normal ABDOMEN: Dressing Clean dry and intact. Ostomy pink patent. SKIN: No rashes NEURO: No focal deficits EXT: No edema noted in extremities - Labs CBC & Chem 7: 10/25/18 06:49 10/25/18 06:49 Assessment and Plan Plan: Assessment and Recommendations: 1. High Grade Bowel Obstruction: Post-operative cause obstructive tumor - Reviewed final pathology with patient, Await MSI testing - Pathological staging T3, N1, M0 - Status Post Colectomy with End Colostomy, Hernia repair as well as partial omenectomy - Adjuvant chemotherapy recommended with FOLFOX or Xelox, to be determined at first follow-up as outpatient with Dr. Prabhakar 2. ETOH and TObacco Abuse: Cessation continued 3. 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 Agree with prophylaxic anticoagulation as chronic thrombus identified with out evidence of acute filling defect. Adjuvant chemotherapy will be recommended with high grade obstruction on presentation and lymph Node Positive results. Homeless will need Social Work to help assist with assisted placement and transportation for upcoming recommended treatments. - If patient is expected to be hospitalized longer than next 24-48 hours could consider placement of mediport for anticipated chemotherapy although would need to consider ability to remain adherent to treatment and assisted Awaiting forensic social worker evaluation
[2018-10-27 11:59] VITALS: BP 121/71; RESP 18; TEMP 96.9
[2018-10-27 12:06] VITALS: PULSE 90
[2018-10-27] MEDS: D5-0.45% NACL WITH KCL 20MEQ/L 1,000 ML IV SCH (15:53)
--- NOTE | 2018-10-28 16:52 | DS ---
DISCHARGE SUMMARY CHIEF COMPLAINT: Bowel obstruction. HISTORY OF PRESENT ILLNESS AND PHYSICAL EXAM: Details of this man's history and physical can be found in the initial workup. LABORATORY STUDIES: While he was in the hospital he had laboratory studies, details of which can be found in the laboratory section of his chart. COURSE IN HOSPITAL: After admission he was placed on bedrest, started on intravenous fluids and seen by surgery and taken to the operating room where he was found to have a large, obstructing carcinoma of the colon. He had a left colectomy and did well postoperatively. Discharge is being arranged and he will he will be moved to a [facility]. This is felt to be an unlikely successful discharge plan given his general condition, weakness, and deafness. FINAL DIAGNOSES: 1. Large bowel obstruction. 2. Carcinoma of colon. 3. Chronic obstructive pulmonary disease. OPERATIONS: Left colectomy. CONSULTATIONS: General surgery. He is improved. MMROSEL / CYNDIN: [id number] /
--- NOTE | 2018-11-01 08:08 | CDI ---
Documentation Clarification Form Date: 11/01/2018 From: SADAF Alvarez Phone: If you have question, contact Lisette Mccray at [phone] M-F 8:30 am to 6pm Admit Date: 10/17/2018 2:12:00 PM Patient Name: Pranav Ochoa Visit Number: [id number] Discharge Date: 10/27/2018 4:30:00 PM ATTENTION: The Clinical Documentation Specialists (CDI) and [facility] Coding Staff appreciate your assistance in clarifying documentation. Please respond to the clarification below the line at the bottom and electronically sign. The CDI & [facility] Coding staff will review the response and follow-up if needed. Please note: Queries are made part of the Legal Health Record. If you have any questions, please contact the author of this message via ITS. Dr. Chas Jean MD The patient presented with a bowel obstruction. He was found to have a high grade bowel obstruction from a tumor. On 10/18 a left colectomy with end colostomy was performed. Further clarification regarding this colostomy is needed for proper reporting purposes. In your professional opinion, can you please clarify what part of the colon was used for the colostomy formation? Ascending colon Cecum Descending colon Sigmoid colon (includes rectosigmoid junction, flexure) Transverse Colon (includes hepatic and splenic flexure) Other, please specify Unable to determine Thank you for your time. The descending colon was used for the colostomy formation. [facility]
== END 2018-10-27 16:30 | disposition home health service (06) | DRG 330 ==
LOC: EC 09:35 → 3NMEDONC 14:12
PROVIDERS: ADMIT Family Medicine; ATTEND Family Medicine
PROC: 0D1M0Z4 Bypass Descending Colon to Cutaneous, Open Approach (ICD-10-PCS; principal; 2018-10-18 10:40)
PROC: 0DTG0ZZ Resection of Left Large Intestine, Open Approach (ICD-10-PCS; principal; 2018-10-18 10:40)
PROC: 0WQF0ZZ Repair Abdominal Wall, Open Approach (ICD-10-PCS; principal; 2018-10-18 10:40)
PROC: 0DBU0ZZ Excision of Omentum, Open Approach (ICD-10-PCS; principal; 2018-10-18 10:40)
DX: C18.6 Malignant neoplasm of descending colon (principal); C77.2 Secondary and unspecified malignant neoplasm of intra-abdominal lymph nodes; K43.6 Other and unspecified ventral hernia with obstruction, without gangrene; I27.82 Chronic pulmonary embolism; F17.210 Nicotine dependence, cigarettes, uncomplicated; H90.5 Unspecified sensorineural hearing loss; I71.2 Thoracic aortic aneurysm, without rupture; K44.9 Diaphragmatic hernia without obstruction or gangrene; R00.0 Tachycardia, unspecified; F51.04 Psychophysiologic insomnia; J43.9 Emphysema, unspecified; F10.10 Alcohol abuse, uncomplicated; Z59.0 Homelessness; Z71.41 Alcohol abuse counseling and surveillance of alcoholic; Z71.6 Tobacco abuse counseling
CPT/HCPCS: 36415; 71045; 71046; 71275; 74177; 80048; 80053; 81001; 82150; 82550; 82553; 83690; 83735; 83880; 84484; 85025; 85610; 85730; 87040; 87081; 87086; 87430; 88305; 88307; 88309; 93005; 93306; 93970; 94640; 94760; 96361; 96365; 96366; 96375; 96376; 99285

== ENCOUNTER 2018-10-28 09:09 | Observation (INO) | payer MEDICARE ==
[2018-10-28] MEDS ORDERED: NALOXONE 0.4 MG/ML 1 ML VIAL IV PRN (10:48)
--- NOTE | 2018-10-28 10:48 | ED ---
General Adult HPI - General Chief complaint: Recheck/Abnormal Lab/Rx Stated complaint: [place] Abnormals Source: patient Mode of arrival: EMS Limitations: no limitations - History of Present Illness Initial comments: Dictation was produced using Sonian dictation software. please excuse any grammatical, word or spelling errors. Chief Complaint: 68-year-old male with recently diagnosed colon cancer status post divergent colostomy presents with inability to take care of himself. History of Present Illness: She is 68-year-old deaf, homeless male who was transferred here by EMS from [facility]. Patient was just discharged yesterday. Patient was recently diagnosed with colon cancer. He did have a diverting colostomy. At the [facility] and they did not feel it was appropriate for him to be they're given that he is homeless, has no cell phone and is unable to take care of himself. Chart review shows that there is documentation that primary attending did not feel that disposition to the [facility] was appropriate however it happened. Patient has no complaints at this time. The ROS documented in this emergency department record has been reviewed and confirmed by me. Those systems with pertinent positive or negative responses have been documented in the HPI. All other systems are other negative and/or noncontributory. - Related Data Home Medications Medication Instructions Recorded Confirmed Doxylamine Succinate [Unisom] 25 mg PO HS PRN 10/17/18 10/28/18 Previous Rx's Medication Instructions Recorded Docusate [Colace] 100 mg PO BID #20 capsule 10/20/18 HYDROcodone/APAP 7.5-325MG [[place] 1 tab PO Q4H PRN 3 Days #18 tab 10/20/18 7.5-325] Allergies Allergy/AdvReac Type Severity Reaction Status Date / Time No Known Allergies Allergy Verified 10/28/18 09:35 Review of Systems ROS Statement: Those systems with pertinent positive or pertinent negative responses have been documented in the HPI. ROS Other: All systems not noted in ROS Statement are negative. Past Medical History Past Medical History: Unable to Obtain Additional Past Medical History / Comment(s): deaf History of Any Multi-Drug Resistant Organisms: Unobtainable Past Surgical History: Unable to Obtain Additional Past Surgical History / Comment(s): cyst from right hand removed, and rt hip Past Anesthesia/Blood Transfusion Reactions: No Reported Reaction Additional Past Anesthesia/Blood Transfusion Reaction / Comment(s): "has never recieved any blood transfusions" Past Psychological History: Unable to Obtain Smoking Status: Unknown if ever smoked Past Alcohol Use History: Unable to Obtain Past Drug Use History: Unable to Obtain - Past Family History Father History Unknown: Yes Mother History Unknown: Yes General Exam - General Exam Comments Initial Comments: PHYSICAL EXAM: General Impression: Alert and oriented x3, not in acute distress HEENT: Normocephalic atraumatic, extra-ocular movements intact, pupils equal and reactive to light bilaterally, mucous membranes moist. Cardiovascular: Heart regular rate and rhythm, S1&S2 audible, no murmurs, rubs or gallops Chest: Lungs clear to auscultation bilaterally, no rhonchi, no wheeze, no rales Abdomen: Surgical site clean and dry intact, stoma is not black, pink. There is stool in the colostomy bag. Musculoskeletal: Pulses present and equal in all extremities, no peripheral edema Motor: Power 5/5 bilaterally, no focal deficits noted Neurological: no focal motor or sensory deficits noted Skin: Intact with no visualized rashes Psych: Normal affect and mood Limitations: no limitations Course Vital Signs 10/28/18 09:49 Temperature 98.8 F Pulse Rate 94 Respiratory 18 Rate Blood Pressure 129/90 O2 Sat by Pulse 93 L Oximetry Medical Decision Making - Medical Decision Making ED course: 68-year-old male presents after abnormal placement. He was recently discharged yesterday. Patient is homeless deaf and unable to care for himself. Patient has no complaints at this time. Vital signs upon arrival are within acceptable limits. Patient is otherwise well-appearing. No indication for workup at this time given that patient has no complaints and is here for placement. We will have patient placed in the hospital for case management to determine more appropriate placement. Disposition Clinical Impression: Homelessness Disposition: ADMITTED IP TO THIS HOSP Condition: Good Referrals: Layo Brooks MD [Primary Care Provider] - 1-2 days Decision Time: 10:48
[2018-10-28 13:16] VITALS: BMI 21.1
[2018-10-28] MEDS: HYDROcodone/APAP 7.5-325MG 1 EACH TAB PO PRN ×2 (14:01→22:12)
[2018-10-28] MEDS ORDERED: NON-FORMULARY DRUG (Doxylamine Succinate [Unisom] 25 MG) PO PRN (21:00)
[2018-10-28] MEDS: DOCUSATE 100 MG CAP PO SCH (22:11)
[2018-10-29] MEDS: HYDROcodone/APAP 7.5-325MG 1 EACH TAB PO PRN ×2 (07:54→21:37)
[2018-10-29] MEDS: DOCUSATE 100 MG CAP PO SCH ×2 (07:54→21:37)
--- NOTE | 2018-10-29 16:39 | HP ---
HISTORY AND PHYSICAL CHIEF COMPLAINT: Failure to thrive. HISTORY OF PRESENT ILLNESS: This gentleman has returned to the hospital right after he was discharged. He is deaf and cannot speak. He was in the hospital for a left colectomy for cancer. It was necessary that he be placed in rehab, but this apparently could not be approved by his insurance and he was sent to a [facility] where they obviously could not take care of him. He was sent back to the ER. REVIEW OF SYSTEMS: Unchanged. He has had no problems. He has had no fever, chills, nausea, vomiting, shortness of breath, chest pain, problems with colostomy, etc. They simply could not handle it. Past medical history, family history, personal and social histories are all otherwise unchanged. PHYSICAL EXAMINATION: Blood pressure 123/64 with a pulse of 65, respirations of 16 and he is afebrile. In general he is slender, in no acute distress. Skin color is normal and skin is warm and dry. Head, ears, eyes, nose, mouth, and throat were normal. The chest is clear. Cardiac exam is normal. The abdomen is flat, soft with a normally functioning colostomy in the left side of the abdomen. Extremities normal. Neurological is intact. IMPRESSION: 1. General debility and failure to thrive. 2. Status post left hemicolectomy. 3. Carcinoma of the colon. PLAN: Readmit to the hospital until bed can be found in the skilled nursing. MMODL / IJN: [id number] /
--- NOTE | 2018-10-29 16:45 | PN ---
PROGRESS NOTE DATE OF SERVICE: 10/29/2018 CHIEF COMPLAINT: Readmission for placement. HISTORY OF PRESENT ILLNESS: This gentleman is doing well. He is comfortable. Vital signs are normal. He is eating well. IMPRESSION: 1. Status post left colectomy. 2. Deafness. PLAN: Await discharge planning and location. MMASHLEY / DEIDRE: [id number] /
[2018-10-30] MEDS: HYDROcodone/APAP 7.5-325MG 1 EACH TAB PO PRN ×3 (02:13→19:14)
[2018-10-30] MEDS: DOCUSATE 100 MG CAP PO SCH ×2 (08:51→19:54)
[2018-10-31] MEDS: DOCUSATE 100 MG CAP PO SCH ×2 (09:38→20:37)
[2018-10-31] MEDS: HYDROcodone/APAP 7.5-325MG 1 EACH TAB PO PRN ×2 (09:40→18:33)
--- NOTE | 2018-10-31 16:50 | PN ---
PROGRESS NOTE DATE OF SERVICE: 10/30/2018 CHIEF COMPLAINT: Failure to thrive and general debility. HISTORY OF PRESENT ILLNESS: This gentleman is doing fairly well, stable and we are waiting for a better discharge plan than the [facility]. PHYSICAL EXAM: Chest is clear. Cardiac exam is normal. Abdomen is flat and soft. Colostomy is functioning normally. IMPRESSION: 1. General debility and weakness. 2. Status post left hemicolectomy for carcinoma of the colon. PLAN: Await discharge plan. MMODL / IJN: [id number] /
--- NOTE | 2018-10-31 17:08 | PN ---
PROGRESS NOTE CHIEF COMPLAINT: Status post left colectomy. HISTORY OF PRESENT ILLNESS: This gentleman is comfortable and will not be going anywhere until a bed is dislocated. PHYSICAL EXAM: Chest is clear. Cardiac exam is normal. Dressing is removed and this incision looks good. IMPRESSION: 1. Status post left colectomy. 2. Deafness. PLAN: Await satisfactory discharge plan. WARREN / DEIDRE: [id number] /
[2018-11-01] MEDS: HYDROcodone/APAP 7.5-325MG 1 EACH TAB PO PRN ×2 (06:38→19:48)
[2018-11-01] MEDS: DOCUSATE 100 MG CAP PO SCH ×2 (07:21→19:47)
[2018-11-02 00:57] VITALS: RESP 18
[2018-11-02 07:09] VITALS: BP 132/80; PULSE 94; TEMP 97.9
[2018-11-02] MEDS: DOCUSATE 100 MG CAP PO SCH (08:55)
[2018-11-02] MEDS: HYDROcodone/APAP 7.5-325MG 1 EACH TAB PO PRN (10:56)
--- NOTE | 2018-11-02 14:04 | PN ---
PROGRESS NOTE DATE OF SERVICE: 11/01/2018 CHIEF COMPLAINT: Status post left hemicolectomy. HISTORY OF PRESENT ILLNESS: This gentleman awaits discharge plan. He is stable otherwise. Exam is normal. IMPRESSION: Status post left hemicolectomy for carcinoma of colon. PLAN: Await discharge plan. MMROSEL / CYNDIN: [id number] /
--- NOTE | 2018-11-02 16:16 | DS ---
DISCHARGE SUMMARY CHIEF COMPLAINT: Status post left colectomy. HISTORY OF PRESENT ILLNESS: This gentleman is admitted back to the hospital until a place could be found for him to go and eventually he was set up with a location where he will be followed by home care and he will follow up in our office in 1 week. FINAL DIAGNOSES: 1. Status post left colectomy for carcinoma of the colon. 2. Chronic obstructive pulmonary disease. OPERATIONS: None. CONSULTATIONS: None. He is improved. MMODL / CYNDIN: [id number] /
== END 2018-11-02 15:07 | disposition home health service (06) ==
LOC: EC 09:09 → 4MS4W 10:49
PROVIDERS: ADMIT Family Medicine; ATTEND Family Medicine
DX: Z75.1 Person awaiting admission to adequate facility elsewhere (principal); Z59.0 Homelessness; R62.7 Adult failure to thrive; H91.90 Unspecified hearing loss, unspecified ear; R53.81 Other malaise; Z93.3 Colostomy status; Z90.49 Acquired absence of other specified parts of digestive tract; Z85.038 Personal history of other malignant neoplasm of large intestine
CPT/HCPCS: 99284; 93005; 97116; 97162; 97168; 97166; G0378 ×6

== ENCOUNTER 2020-06-12 08:07 | Inpatient (IN) | payer MEDICARE ==
[2020-06-10 16:21] VITALS: BMI 21.8
[~2020-06-12 08:07] MED LIST: ONDANSETRON 4 MG/2 ML VIAL IVP PRN
[2020-06-12] MEDS: LACTATED RINGERS 1,000 ML IV SCH ×2 (08:51→23:26)
[2020-06-12] MEDS ORDERED: PROPOFOL 10 MG/ML 20 ML VIAL IV ONE (08:57)
[2020-06-12] MEDS ORDERED: LIDOCAINE 1% INJ 10MG/ML (20 ML MDV) ONE (08:57)
--- NOTE | 2020-06-12 09:02 | P.GSHP ---
History of Present Illness H&P Date: 06/12/20 Chief Complaint: History of left colon cancer This a 70-year-old male has today for colonoscopy. Patient previous history of left colectomy for colon cancer. Patient is undergoing reversal of colostomy tomorrow. Past Medical History Past Medical History: Cancer, Hearing Disorder / Deafness Additional Past Medical History / Comment(s): DEAF-MUTE- COMMUNICATES BY WRITING EVERYTHING DOWN., LIMITED HEALTH HX OBTAINED FROM MOHINDER AT [facility] , HX OF COLON CANCER WITH COLOSTOMY., TACHYCARDIA., OCCASIONAL SOB STATED BY PT (PER MOHINDER AT [facility] FORMER SMOKER, LIVES ALONE. , NO FAMILY- HAS [facility] PUBLIC GUARDIAN # , [facility]-DR FONSECA # [phone], VISIT NURSE HAS MEDICAL DIRECTOR/HEAD TEAM PHYSICIAN COME TO SEE PATIENT 4 HOURS PER WEEK # [phone], MEDICAL DIRECTOR/HEAD TEAM PHYSICIAN -ELIS # [phone] History of Any Multi-Drug Resistant Organisms: None Reported Past Surgical History: Bowel Resection Additional Past Surgical History / Comment(s): cyst from right hand removed, and rt hip,. colostomy. COLONOSCOPY Past Anesthesia/Blood Transfusion Reactions: Unable to Obtain Additional Past Anesthesia/Blood Transfusion Reaction / Comment(s): . Past Psychological History: No Psychological Hx Reported Additional Psychological History / Comment(s): PT LIVES ALONE, DEAF, COMMUNICATES BY WRITING EVERYTHING DOWN., NO FAMILY , HAS [facility] PUBLIC GUARDIAN. Smoking Status: Former smoker Past Alcohol Use History: None Reported Additional Past Alcohol Use History / Comment(s): PER MOHINDER AT [facility] -FORMER SMOKER- DOES NOT DRINK ALCOHOL TO THEIR KNOWLEDGE. Past Drug Use History: None Reported - Past Family History Father History Unknown: Yes Family Medical History: Unable to Obtain Mother History Unknown: Yes Family Medical History: Unable to Obtain Medications and Allergies Home Medications Medication Instructions Recorded Confirmed Type Doxylamine Succinate [Unisom] 25 mg PO HS 05/07/20 06/12/20 History Ergocalciferol [Vitamin D2] 50,000 unit PO Q7D 05/07/20 06/12/20 History Fluticasone/Salmeterol [Advair Hfa 2 puff INHALATION Q12HR 05/07/20 06/12/20 History 45-21 Mcg Inhaler] Albuterol Inhaler [Ventolin Hfa 2 puff INHALATION Q4HR PRN 06/11/20 06/12/20 History Inhaler] Ammonium Lactate Lotion 1 applic TOPICAL BID 06/11/20 06/12/20 History [Lac-Hydrin 12% Lotion] Allergies Allergy/AdvReac Type Severity Reaction Status Date / Time No Known Allergies Allergy Verified 06/12/20 08:26 Surgical - Exam Vital Signs Temp Pulse Resp BP Pulse Ox 98.8 F 106 H 16 160/82 93 L 06/12/20 08:38 06/12/20 08:38 06/12/20 08:38 06/12/20 08:38 06/12/20 08:38 - General well developed, well nourished, no distress - Eyes PERRL - ENT normal pinna - Neck no masses - Respiratory normal expansion - Cardiovascular Rhythm: regular - Abdomen Abdomen: soft, non tender Assessment and Plan Assessment: History of left colon cancer. We'll perform colonoscopy.
[2020-06-12] MEDS ORDERED: LACTATED RINGERS 1,000 ML IV ONE (09:16)
[2020-06-12] MEDS ORDERED: NALOXONE 0.4 MG/ML 1 ML VIAL IV PRN (09:16)
--- NOTE | 2020-06-12 09:20 | P.OP ---
Date of Procedure: 06/12/20 Preoperative Diagnosis: History of left colon cancer Postoperative Diagnosis: Diverticulosis Procedure(s) Performed: Colonoscopy Anesthesia: MAC Surgeon: Chas Jean Pathology: none sent Condition: stable Disposition: PACU Description of Procedure: Patient's placed on the endoscopy table lateral position. He received IV sedation. Digital rectal exam was performed which revealed a stool ball in the rectum. This was manually dissected. Next the flexor colonoscope was then placed patient anus and passed throughout the colon. The rectal stump measured approximately 30 cm in length. There is known to any tumor in the rectal stump. Next patient rotator side. He had a prolapse of the colostomy and a right inguinal hernia. The radial hernia was reducible. The clostridium was reduced and then the colonoscope was then placed patient colostomy passed with colon. The scope could not be placed in the cecum secondary to tortuosity valve. Scope was withdrawn. The remaining of the ascending colon transverse colon and descending colon was examined. There was diverticulosis noted in the descending colon. The scope was withdrawn for patient.
--- NOTE | 2020-06-12 09:21 | P.PN ---
Progress Note - Text Progress Note Date: 06/12/20 The patient underwent colonoscopy today. Patient is deaf and mute. He'll be admitted for reversal of colostomy tomorrow.
[2020-06-12] MEDS ORDERED: HYDROmorphone 1 MG/ML 1 ML SYRINGE IVP ONE (10:15)
[2020-06-12 17:28] LABS: Basophils % (A) 1 %; Eosinophils # (A) 0.2 k/uL (0-0.7); Eosinophils % (A) 2 %; HGB 12.4 gm/dL (13.0-17.5); Lymphocytes # (A) 1.4 k/uL (1.0-4.8); Lymphocytes % (A) 21 %; MCH 30.1 pg (25.0-35.0); MCHC 31.7 g/dL (31.0-37.0); Mean Platelet Volume 7.4; Monocytes # (A) 0.4 k/uL (0-1.0); Monocytes % (A) 6 %; Neutrophils # (A) 4.5 k/uL (1.3-7.7); Neutrophils % (A) 69 %; Platelet Count 167 k/uL (150-450); RBC 4.11 m/uL (4.30-5.90); RDW 13.1 % (11.5-15.5); WBC 6.6 k/uL (3.8-10.6)
[2020-06-12 17:30] LABS: African American GFR (CKD) >90 (>60 ml/min/1.73 sqM); Anion Gap 5 mmol/L; Blood Urea Nitrogen 11 mg/dL (9-20); Calcium 8.2 mg/dL (8.4-10.2); Carbon Dioxide 28 mmol/L (22-30); Chloride 101 mmol/L (98-107); Glucose 84 mg/dL (74-99); Non-African American GFR(CKD) >90 (>60 ml/min/1.73 sqM); Potassium 3.8 mmol/L (3.5-5.1); Sodium 134 mmol/L (137-145)
[2020-06-12] MEDS: MELATONIN 3 MG TABLET PO PRN (21:35)
[2020-06-12] MEDS: ACETAMINOPHEN TAB 325 MG TAB PO PRN (21:35)
--- NOTE | 2020-06-13 02:01 | P.CON ---
Consult Note - . Consult date: 06/12/20 Assessment/Plan:: Reason for consult -meant of chronic medical conditions. Mr. Ochoa is a 70-year-old male, who is deaf mute, communicates by writing everything down, history of colon cancer with colostomy admitted for reversal of colostomy. Patient had colonoscopy done today and is scheduled for reversal of colostomy for tomorrow. Patient has past medical history of colon cancer and he takes vitamin D supplements, aggravated, doxylamine on a regular basis. Patient has no active complaints. He denies having any chest pain, palpitations, difficulty breathing. Patient did not endorse any other complaints.Patient denies having any abdominal pain, nausea or vomiting. No dysuria or hematuria. Past Medical History Past Medical History: Cancer, Hearing Disorder / Deafness Additional Past Medical History / Comment(s): DEAF-MUTE- COMMUNICATES BY WRITING EVERYTHING DOWN., LIMITED HEALTH HX OBTAINED FROM [facility] AT [facility] , HX OF COLON CANCER WITH COLOSTOMY., TACHYCARDIA., OCCASIONAL SOB STATED BY PT (PER [facility]ER AT [facility]), FORMER SMOKER, LIVES ALONE. , NO FAMILY- HAS [facility] # [phone], [facility] # [phone], [facility] NURSE HAS STAFF SONOGRAPHER COME TO SEE PATIENT 4 HOURS PER WEEK # [phone], STAFF SONOGRAPHER -ELIS # [phone] History of Any Multi-Drug Resistant Organisms: None Reported Past Surgical History: Bowel Resection Additional Past Surgical History / Comment(s): cyst from right hand removed, and rt hip,. colostomy. COLONOSCOPY Past Anesthesia/Blood Transfusion Reactions: Unable to Obtain Additional Past Anesthesia/Blood Transfusion Reaction / Comment(s): . Past Psychological History: No Psychological Hx Reported Additional Psychological History / Comment(s): PT LIVES ALONE, DEAF, COMMUNICATES BY WRITING EVERYTHING DOWN., NO FAMILY , HAS [facility]. Smoking Status: Former smoker Past Alcohol Use History: None Reported Additional Past Alcohol Use History / Comment(s): PER [facility] AT [facility] -FORMER SMOKER- DOES NOT DRINK ALCOHOL TO THEIR KNOWLEDGE. Past Drug Use History: None Reported - Past Family History Father History Unknown: Yes Family Medical History: Unable to Obtain Mother History Unknown: Yes Family Medical History: Unable to Obtain Medications and Allergies Home Medications Medication Instructions Recorded Confirmed Type Doxylamine Succinate [Unisom] 25 mg PO HS 05/07/20 06/12/20 History Ergocalciferol [Vitamin D2] 50,000 unit PO Q7D 05/07/20 06/12/20 History Fluticasone/Salmeterol [Advair Hfa 2 puff INHALATION Q12HR 05/07/20 06/12/20 History 45-21 Mcg Inhaler] Albuterol Inhaler [Ventolin Hfa 2 puff INHALATION Q4HR PRN 06/11/20 06/12/20 History Inhaler] Ammonium Lactate Lotion 1 applic TOPICAL BID 06/11/20 06/12/20 History [Lac-Hydrin 12% Lotion] Allergies Allergy/AdvReac Type Severity Reaction Status Date / Time No Known Allergies Allergy Verified 06/12/20 08:26 Physical Exam Vitals: Vital Signs Temp Pulse Resp BP Pulse Ox 06/12/20 19:20 98.2 F 84 16 114/70 94 L 06/12/20 16:00 20 06/12/20 13:45 97.6 F 90 18 135/74 92 L 06/12/20 10:43 103 H 16 120/78 98 06/12/20 09:20 103 H 16 134/78 98 06/12/20 08:38 98.8 F 106 H 16 160/82 93 L Intake and Output 06/12/20 06/12/20 06/13/20 14:59 22:59 06:59 Intake Total 1900 Balance 1900 Intake: IV 1700 Intake, IV Titration 200 Amount Lactated Ringers 1,000 ml 200 @ 100 mls/hr IV .Q10H ONE Rx#:[id number] Other: # Voids 1 Weight 77.111 kg PHYSICAL EXAMINATION: GENERAL: appears to be in no acute distress. HEENT: Pupils are round and equally reacting to light. EOMI. No scleral icterus. No conjunctival pallor CARDIOVASCULAR: S1 and S2 heard. No additional sounds. PULMONARY: Bilateral breath sounds are positive, no wheeze or crackles ABDOMEN: Soft, nontender, colostomy bag on the right side with stool. MUSCULOSKELETAL: No joint swelling or deformity. EXTREMITIES: No cyanosis, clubbing, or pedal edema. NEUROLOGICAL: Alert awake oriented 3, Gross neurological examination did not reveal any focal deficits. SKIN: No rash Results CBC & Chem 7: 06/12/20 16:58 06/12/20 16:58 Labs: Abnormal Lab Results - Last 24 Hours (Table) 06/12/20 06/12/20 Range/Units 16:58 16:58 RBC 4.11 L (4.30-5.90) m/uL Hgb 12.4 L (13.0-17.5) gm/dL Sodium 134 L (137-145) mmol/L Creatinine 0.60 L (0.66-1.25) mg/dL Calcium 8.2 L (8.4-10.2) mg/dL ASSESSMENT History of colon cancer Mild persistent asthma Eczema PLAN: Patient has been admitted for reversal of his colostomy. He had his colonoscopy done today. Patient's vitals within normal limits. His blood work from this afternoon showing hemoglobin of 12.4, electrolytes within normal limits. Patient has been restarted on his home medications. He scheduled for reversal of colostomy for tomorrow morning. Further recommendations depending on the progress of the patient. Thank you for allowing us to participate in taking care of the patient
[2020-06-13] MEDS ORDERED: HYDROmorphone 0.5 MG/0.5 ML SYRINGE IVP PRN (05:00)
[2020-06-13] MEDS ORDERED: LACTATED RINGERS 1,000 ML IV SCH (06:00)
[2020-06-13] MEDS ORDERED: DEXAMETHASONE SOD PHOSPHATE 10 MG/ML 1 ML VIAL IV ONE (06:00)
[2020-06-13] MEDS ORDERED: ONDANSETRON 4 MG/2 ML VIAL IVP ONE (06:00)
[2020-06-13] MEDS ORDERED: SCOPOLAMINE 1.5MG/72HR PATCH TRANSDERM ONE (06:00)
[2020-06-13] MEDS ORDERED: ACETAMINOPHEN TAB 500 MG TAB PO ONE (07:37)
[2020-06-13] MEDS ORDERED: ALVIMOPAN 12 MG CAPSULE PO ONE (07:46)
[2020-06-13] MEDS ORDERED: MIDAZOLAM 2 MG/2 ML VIAL IVP ONE ×2 (07:55→07:58)
[2020-06-13] MEDS ORDERED: fentaNYL (PF) 50 MCG/ML 2 ML AMP IVP ONE ×2 (07:56→07:58)
[2020-06-13] MEDS ORDERED: NALOXONE 0.4 MG/ML 1 ML VIAL IVP ONE (08:02)
--- NOTE | 2020-06-13 08:28 | P.PN ---
Progress Note - Text Progress Note Date: 06/13/20 Patient presents today for reversal of colostomy. He has had a uneventful night. All his questions have been answered.
[2020-06-13] MEDS ORDERED: LACTATED RINGERS 1,000 ML IV ONE ×2 (08:30→10:07)
[2020-06-13] MEDS ORDERED: ONDANSETRON 4 MG/2 ML VIAL IVP PRN ×2 (08:51→10:25)
[2020-06-13] MEDS ORDERED: NALOXONE 0.4 MG/ML 1 ML VIAL IV PRN (08:51)
[2020-06-13] MEDS ORDERED: HEPARIN SODIUM,PORCINE 5,000 UNIT/ML 1 ML VIAL SQ ONE (09:00)
[2020-06-13] MEDS ORDERED: GLYCOPYRROLATE 0.2 MG/ML 2 ML VIAL ONE (09:01)
[2020-06-13] MEDS ORDERED: LIDOCAINE 1% INJ 10MG/ML (20 ML MDV) ONE (09:01)
[2020-06-13] MEDS ORDERED: PROPOFOL 10 MG/ML 20 ML VIAL IV ONE (09:01)
[2020-06-13] MEDS ORDERED: NEOSTIGMINE 1 MG/ML 10 ML VIAL ONE (09:01)
[2020-06-13] MEDS ORDERED: ROCURONIUM BROMIDE 10 MG/ML 5 ML VIAL IV ONE (09:01)
[2020-06-13] MEDS ORDERED: PHENYLEPHRINE-0.9% NACL SYG 1 MG/10 ML SYRINGE ONE (09:01)
[2020-06-13] MEDS ORDERED: metroNIDAZOLE-NS PMX 500 MG in SALINE 1 100ML.BAG IVPB ONE (10:15)
--- NOTE | 2020-06-13 10:22 | P.OP ---
Date of Procedure: 06/13/20 Preoperative Diagnosis: History of colon cancer Postoperative Diagnosis: Colon cancer Incisional hernia Procedure(s) Performed: Reversal colostomy Repair of incisional hernia Anesthesia: LUIS ANTONIO Surgeon: Chas Jean Estimated Blood Loss (ml): 20 Pathology: other (colon) Condition: stable Disposition: PACU Description of Procedure: The patient's placed on the operating table in the dorsal lithotomy position. His abdomen was prepped and draped usual sterile fashion. The abdomen was entered through a midline incision. There was an incisional hernia. The adhesions of small bowel within the hernia were lysed with sharp dissection. The Bookwalter retractors placed a wound. The colon was followed to the level of colostomy. And then the colon was transected at the fascial level. Using the SUYAPA stapler. The patient had a long section of rectosigmoid. It was decided to perform an end-to-end staple anastomosis. A section of the descending colon was then transected using a GI stapler and then using incentive device the mesentery divided. A set-aside functional end-to-end staple last was then created using the SUYAPA and TA stapler. A 3-0 GI silk suture used as a crotch stitch. The abdomen was areas opening seen. The fascia was then closed with looped #1 PDS suture. Repair of incisional hernia was performed during fascial closure. Skin was all stable. The colostomy then excised the skin level using left cautery and then the fascia was closed with 0 Ethibond suture. Skin associates. Patient top she will was sent to recovery room in stable condition.
[2020-06-13] MEDS: ROPIVACAINE 300 MG, HYDROMORPHONE (PF) 5 MG in SODIUM CHLORIDE 0.9% 190 ML EPIDURAL PRN ×2 (10:24→11:24)
[2020-06-13] MEDS: HEPARIN SODIUM,PORCINE 5,000 UNIT/ML 1 ML VIAL SQ SCH (11:32)
[2020-06-13 11:58] LABS: Basophils % (A) 0 %; Eosinophils % (A) 0 %; HCT 41.2 % (39.0-53.0); HGB 12.7 gm/dL (13.0-17.5); Lymphocytes # (A) 0.4 k/uL (1.0-4.8); Lymphocytes % (A) 5 %; MCH 29.8 pg (25.0-35.0); MCHC 30.9 g/dL (31.0-37.0); MCV 96.5 fL (80.0-100.0); Mean Platelet Volume 7.6; Monocytes # (A) 0.1 k/uL (0-1.0); Monocytes % (A) 2 %; Neutrophils # (A) 6.8 k/uL (1.3-7.7); Neutrophils % (A) 92 %; Platelet Count 172 k/uL (150-450); RBC 4.27 m/uL (4.30-5.90); RDW 12.9 % (11.5-15.5); WBC 7.3 k/uL (3.8-10.6)
[2020-06-13 12:47] LABS: African American GFR (CKD) >90 (>60 ml/min/1.73 sqM); Anion Gap 6 mmol/L; Blood Urea Nitrogen 8 mg/dL (9-20); Carbon Dioxide 26 mmol/L (22-30); Chloride 103 mmol/L (98-107); Glucose 139 mg/dL (74-99); Non-African American GFR(CKD) >90 (>60 ml/min/1.73 sqM); Sodium 135 mmol/L (137-145)
[2020-06-13] MEDS: D5-0.45% NACL WITH KCL 20MEQ/L 1,000 ML IV SCH ×3 (13:23→22:01)
[2020-06-13] MEDS: ACETAMINOPHEN TAB 325 MG TAB PO PRN (19:53)
[2020-06-13] MEDS: MELATONIN 3 MG TABLET PO PRN (22:06)
[2020-06-14] MEDS: HEPARIN SODIUM,PORCINE 5,000 UNIT/ML 1 ML VIAL SQ SCH ×4 (00:25→23:32)
--- NOTE | 2020-06-14 01:14 | P.PN ---
Subjective Progress Note Date: 06/13/20 Principal diagnosis: Elective reversal of colostomy Mr. Ochoa is a 70-year-old male, who is deaf mute, communicates by writing everything down, history of colon cancer with colostomy admitted for reversal of colostomy. Patient had colonoscopy done yesterday and had reversal of colostomy done this morning. Patient just got back from the procedure. Patient states that his abdomen feels sore. Patient denies having any other active complaints. On reviewing the vitals postop patient temperature is 97.8, slightly tachycardic in 110s, saturating at 96% on 2 L of oxygen, blood pressure 122 x 74. Patient's labs from this morning hemoglobin of 12.7, platelets 172. Electrolytes within normal limits. Active Medications Acetaminophen (Tylenol Tab) 650 mg PO Q6HR PRN PRN Reason: Fever and/ or Pain Last Admin: 06/13/20 19:53 Dose: 650 mg Documented by: Alvimopan (Entereg) 12 mg PO BID LASHONDA Stop: 06/20/20 21:01 Diphenhydramine HCl (Benadryl) 25 mg IVP Q6HR PRN PRN Reason: Itching Heparin Sodium (Porcine) (Heparin) 5,000 unit SQ Q8HR LASHONDA Last Admin: 06/14/20 00:25 Dose: 5,000 unit Documented by: Ropivacaine 300 mg/Hydromorphone HCl 5 mg/ Sodium Chloride 250 mls @ 0 mls/hr EPIDURAL .Q0M PRN; Protocol PRN Reason: Pain Control Last Admin: 06/13/20 11:24 Dose: 11 mls Documented by: Potassium Chloride/Dextrose/Sod Cl (D5%-1/2ns-Kcl 20 Meq/L Iv Solution) 1,000 mls @ 125 mls/hr IV .Q8H LASHONDA Last Admin: 06/13/20 22:01 Dose: 125 mls/hr Documented by: Melatonin (Melatonin) 3 mg PO HS PRN PRN Reason: Insomnia Last Admin: 06/13/20 22:06 Dose: 3 mg Documented by: Metoclopramide HCl (Reglan) 10 mg IVP Q6HR PRN PRN Reason: Nausea and Vomiting Naloxone HCl (Narcan) 0.2 mg IV Q2M PRN PRN Reason: Opioid Reversal Naloxone HCl (Narcan) 0.2 mg IV Q2M PRN PRN Reason: Opioid Reversal Ondansetron HCl (Zofran) 4 mg IVP Q8HR PRN PRN Reason: Nausea And Vomiting Ondansetron HCl (Zofran) 4 mg IVP Q8HR PRN PRN Reason: Nausea And Vomiting Objective - Vital Signs Vital signs: Vital Signs Temp 97.2 F L 06/13/20 10:24 Pulse 107 H 06/13/20 11:25 Resp 16 06/13/20 11:25 BP 160/85 06/13/20 11:25 Pulse Ox 94 L 06/13/20 11:25 Intake & Output 06/12/20 06/13/20 06/13/20 18:59 06:59 18:59 Intake Total 1900 1000 1461 Output Total 390 Balance 1900 1000 1071 Weight 77.111 kg Intake: IV 1700 1000 1461 Intake, IV Titration 200 Amount Lactated Ringers 1,000 ml 200 @ 100 mls/hr IV .Q10H ONE Rx#:[id number] Output: Urine 370 Estimated Blood Loss 20 Other: # Voids 1 - Exam PHYSICAL EXAMINATION: GENERAL: appears to be in no acute distress. HEENT: Pupils are round and equally reacting to light. EOMI. No scleral icterus. No conjunctival pallor CARDIOVASCULAR: S1 and S2 heard. No additional sounds. PULMONARY: Bilateral breath sounds are positive, no wheeze or crackles ABDOMEN: Soft, mild tenderness in all quadrants, hypoactive bowel sounds MUSCULOSKELETAL: No joint swelling or deformity. EXTREMITIES: No cyanosis, clubbing, or pedal edema. NEUROLOGICAL: Alert awake oriented 3, Gross neurological examination did not reveal any focal deficits. SKIN: No rash - Labs CBC & Chem 7: 06/13/20 11:45 06/13/20 11:45 Labs: Abnormal Lab Results - Last 24 Hours (Table) 06/12/20 06/12/20 06/13/20 Range/Units 16:58 16:58 11:45 RBC 4.11 L 4.27 L (4.30-5.90) m/uL Hgb 12.4 L 12.7 L (13.0-17.5) gm/dL MCHC 30.9 L (31.0-37.0) g/dL Lymphocytes # 0.4 L (1.0-4.8) k/uL Sodium 134 L (137-145) mmol/L BUN (9-20) mg/dL Creatinine 0.60 L (0.66-1.25) mg/dL Glucose (74-99) mg/dL Calcium 8.2 L (8.4-10.2) mg/dL 06/13/20 Range/Units 11:45 RBC (4.30-5.90) m/uL Hgb (13.0-17.5) gm/dL MCHC (31.0-37.0) g/dL Lymphocytes # (1.0-4.8) k/uL Sodium 135 L (137-145) mmol/L BUN 8 L (9-20) mg/dL Creatinine 0.57 L (0.66-1.25) mg/dL Glucose 139 H (74-99) mg/dL Calcium 8.0 L (8.4-10.2) mg/dL Assessment and Plan Assessment: ASSESSMENT History of colon cancer Mild persistent asthma Eczema PLAN: Patient has been admitted for reversal of his colostomy. He had reversal of colostomy done today. Post - op patient's vitals within normal limits and he looks well.Patient to continue on GI DVT prophylaxis. Also encourage incentive spirometry. Further recommendations depending on the progress of the patient. Further recommendations depending on the progress of the patient.
[2020-06-14] MEDS: ALVIMOPAN 12 MG CAPSULE PO SCH ×2 (07:59→20:17)
[2020-06-14 08:04] LABS: Basophils % (A) 0 %; Eosinophils % (A) 0 %; HGB 12.3 gm/dL (13.0-17.5); Lymphocytes # (A) 1.2 k/uL (1.0-4.8); Lymphocytes % (A) 15 %; MCH 30.3 pg (25.0-35.0); MCHC 31.5 g/dL (31.0-37.0); MCV 96.2 fL (80.0-100.0); Mean Platelet Volume 7.5; Monocytes # (A) 0.5 k/uL (0-1.0); Monocytes % (A) 6 %; Neutrophils # (A) 5.8 k/uL (1.3-7.7); Neutrophils % (A) 77 %; Platelet Count 170 k/uL (150-450); RBC 4.05 m/uL (4.30-5.90); RDW 12.9 % (11.5-15.5); WBC 7.6 k/uL (3.8-10.6)
[2020-06-14 08:09] LABS: African American GFR (CKD) >90 (>60 ml/min/1.73 sqM); Anion Gap 4 mmol/L; Blood Urea Nitrogen 5 mg/dL (9-20); Calcium 7.8 mg/dL (8.4-10.2); Carbon Dioxide 30 mmol/L (22-30); Chloride 99 mmol/L (98-107); Glucose 105 mg/dL (74-99); Non-African American GFR(CKD) >90 (>60 ml/min/1.73 sqM); Potassium 3.8 mmol/L (3.5-5.1); Sodium 133 mmol/L (137-145)
--- NOTE | 2020-06-14 11:00 | P.PN ---
Progress Note - Text Progress Note Date: 06/14/20 The patient's postoperative day 1 from reversal of colostomy. He is doing quite well. On exam incision sites clean dry tach. Abdomen soft. Patient will remain on clear liquid diet. We will advance his diet once bowel function returns.
--- NOTE | 2020-06-14 15:01 | P.PN ---
Progress Note - Text 06/14/20 0824 70-year-old male status post colostomy reversal by Dr. Jean. Patient has an epidural catheter for postop pain control with the solution running at 6 mL an hour. Patient is nonverbal and it's hard to communicate with him. I spoke with the nurse who told me that he was complaining of numbness in his legs but his pain control is adequate. Sweat decided to decrease the rate to 4 mL an hour plan to continue epidural infusion
[2020-06-14] MEDS: PANTOPRAZOLE 40 MG/10 ML VIAL IVP SCH (15:51)
[2020-06-14] MEDS: ROPIVACAINE 300 MG, HYDROMORPHONE (PF) 5 MG in SODIUM CHLORIDE 0.9% 190 ML EPIDURAL PRN (15:52)
[2020-06-14] MEDS: diphenhydrAMINE 50 MG/ML 1 ML VIAL IVP PRN ×2 (16:11→20:18)
[2020-06-14] MEDS: D5-0.45% NACL WITH KCL 20MEQ/L 1,000 ML IV SCH ×3 (16:12→23:32)
--- NOTE | 2020-06-14 16:26 | PN ---
PROGRESS NOTE DATE OF SERVICE: 06/14/2020 This 70-year-old gentleman who underwent reversal of colostomy, also had epidural analgesia. The patient also had history of colon cancer. The patient is noncommunicative, is deaf at this time. PAST MEDICAL HISTORY: Reviewed. REVIEW OF SYSTEMS: Could not be taken, the patient is sedated. CURRENT MEDICATIONS: Reviewed and include Tylenol, Benadryl, heparin, melatonin, Reglan, Narcan, Zofran, other doses reviewed and spinal. PHYSICAL EXAM: Pulse is 108, blood pressure 120/77, respirations 16, temp 98.2, pulse ox 93% on 2 L. HEENT: Conjunctivae normal. Oral mucosa moist. NECK: No jugular venous distention. No lymph node enlargement. CARDIOVASCULAR: S1, S2, muffled. No S3, no S4, RESPIRATORY: Diminished breath sounds at the bases. A few scattered rhonchi and crackles. ABDOMEN: Soft, status post surgery. LEGS: No edema, no swelling. NERVOUS SYSTEM: Could not be examined completely. LABS: WBC 7.2, hemoglobin 12.6, sodium 133 and calcium 7.8. ASSESSMENT: 1. Status post reversal of colostomy for repair of incisional hernia. 2. Severe abdominal pain. 3. History of colon cancer. 4. Mild persistent asthma. 5. History of eczema. 6. Anemia, normocytic anemia of chronic disease. 7. Hyponatremia. 8. Mild hypocalcemia. 9. History of hearing disorder, deafness. 10.History of colon cancer with colostomy. 11.Public legal guardian. 12.History of bowel resection. 13.Remote history of nicotine dependence. 14.FULL CODE. RECOMMENDATIONS AND DISCUSSION: This 70-year-old gentleman who presented with multiple complex medical issues, we will monitor the patient closely, continue the current management and symptomatic treatment. Continue postop protocol. Proton pump inhibitors. DVT prophylaxis. We will follow the patient closely. Otherwise, I would also recommend repeat labs, especially monitoring the sodium and further recommendations to follow. MMODL / IJN: [id number] /
[2020-06-15 07:29] LABS: Basophils % (A) 1 %; Eosinophils # (A) 0.1 k/uL (0-0.7); Eosinophils % (A) 2 %; HGB 12.7 gm/dL (13.0-17.5); Lymphocytes # (A) 1.2 k/uL (1.0-4.8); Lymphocytes % (A) 20 %; MCH 30.2 pg (25.0-35.0); MCV 97.5 fL (80.0-100.0); Mean Platelet Volume 7.6; Monocytes # (A) 0.4 k/uL (0-1.0); Monocytes % (A) 7 %; Neutrophils # (A) 4.1 k/uL (1.3-7.7); Neutrophils % (A) 69 %; Platelet Count 154 k/uL (150-450); RDW 12.9 % (11.5-15.5)
[2020-06-15 07:43] LABS: African American GFR (CKD) >90 (>60 ml/min/1.73 sqM); Anion Gap 4 mmol/L; Blood Urea Nitrogen <2 mg/dL (9-20); Calcium 7.9 mg/dL (8.4-10.2); Carbon Dioxide 32 mmol/L (22-30); Chloride 99 mmol/L (98-107); Glucose 88 mg/dL (74-99); Non-African American GFR(CKD) >90 (>60 ml/min/1.73 sqM); Potassium 4.1 mmol/L (3.5-5.1); Sodium 135 mmol/L (137-145)
[2020-06-15] MEDS: D5-0.45% NACL WITH KCL 20MEQ/L 1,000 ML IV SCH ×3 (07:55→23:52)
[2020-06-15] MEDS: ALVIMOPAN 12 MG CAPSULE PO SCH ×2 (07:56→20:33)
[2020-06-15] MEDS: PANTOPRAZOLE 40 MG/10 ML VIAL IVP SCH (07:56)
[2020-06-15] MEDS: HEPARIN SODIUM,PORCINE 5,000 UNIT/ML 1 ML VIAL SQ SCH ×3 (07:57→23:52)
--- NOTE | 2020-06-15 11:35 | P.PN ---
Progress Note - Text Progress Note Date: 06/15/20 The patient resting comfortably in his bed. He denies any significant pain. On exam vital signs are stable. Abdomen soft. Status post reversal colostomy. Patient remained on clear liquid diet until bowel function returns
[2020-06-15] MEDS: METOCLOPRAMIDE 5 MG/ML 2 ML VIAL IVP PRN (14:15)
--- NOTE | 2020-06-15 17:05 | PN ---
PROGRESS NOTE DATE OF SERVICE: 06/15/2020 This is a 70-year-old gentleman who underwent colostomy reversal, is being closely monitored. No chest pain. No palpitations. No fever. EXAM: Pulse 118, blood pressure 160/83, respiration 18, temperature normal, pulse ox 91% on 2 L. HEENT: Conjunctivae normal. NECK: No jugular venous distention. CARDIOVASCULAR: S1, S2, muffled. RESPIRATORY: Diminished breath sounds at the bases. No rhonchi or crackles. ABDOMEN: Soft, status post surgery. NERVOUS SYSTEM: No focal deficits. LABS: WBC 6, hemoglobin 12.7, sodium 135. ASSESSMENT: 1. Status post reversal of colostomy for repair of incisional hernia. 2. Severe abdominal pain. 3. History of gastroesophageal reflux disease. 4. History of colon cancer. 5. Mild persistent asthma. 6. History of eczema. 7. Anemia, normocytic anemia of chronic disease. 8. Hyponatremia. 9. Mild hypocalcemia. 10.History of hearing disorder and deafness. 11.History of colon cancer with colostomy. 12.Public legal guardian. 13.History of bowel resection. 14.Remote history of nicotine dependence. 15.FULL CODE. RECOMMENDATIONS AND DISCUSSION: Continue current medications, continue with monitoring and symptomatic treatment. The patient has fluctuation in blood pressures. We will order incentive spirometry. Pain medications. Further recommendations to follow. MMODL / IJN: [id number] /
--- NOTE | 2020-06-15 21:23 | P.PN ---
Progress Note - Text 06/15 2040 70-year-old male status post colostomy reversal. Patient has an epidural catheter running at 5 mL an hour with a VAS of 3. No motor or sensory deficit noted. Plan to continue epidural infusion and DC the epidural in a.m.
[2020-06-15] MEDS: MELATONIN 3 MG TABLET PO PRN (23:52)
--- NOTE | 2020-06-16 07:21 | P.PN ---
Progress Note - Text 06/16/20 705am 70-year-old male's status post colostomy reversal by Dr. Jean. Patient has an epidural catheter for postop pain control with the solution running at 5 mL an hour. Patient seems to be comfortable doing well this morning. Patient is also nonverbal. Plan to DC epidural nurse informed
[2020-06-16 07:31] LABS: Basophils % (A) 0 %; Eosinophils # (A) 0.1 k/uL (0-0.7); Eosinophils % (A) 2 %; HCT 44.9 % (39.0-53.0); Lymphocytes # (A) 0.8 k/uL (1.0-4.8); Lymphocytes % (A) 11 %; MCH 29.6 pg (25.0-35.0); MCHC 31.1 g/dL (31.0-37.0); MCV 95.3 fL (80.0-100.0); Mean Platelet Volume 7.5; Monocytes # (A) 0.4 k/uL (0-1.0); Monocytes % (A) 6 %; Neutrophils # (A) 5.4 k/uL (1.3-7.7); Neutrophils % (A) 79 %; Platelet Count 199 k/uL (150-450); RBC 4.71 m/uL (4.30-5.90); RDW 12.8 % (11.5-15.5); WBC 6.9 k/uL (3.8-10.6)
[2020-06-16 07:47] LABS: African American GFR (CKD) >90 (>60 ml/min/1.73 sqM); Anion Gap 5 mmol/L; Blood Urea Nitrogen 5 mg/dL (9-20); Calcium 7.8 mg/dL (8.4-10.2); Carbon Dioxide 29 mmol/L (22-30); Chloride 98 mmol/L (98-107); Glucose 138 mg/dL (74-99); Non-African American GFR(CKD) >90 (>60 ml/min/1.73 sqM); Potassium 4.5 mmol/L (3.5-5.1); Sodium 132 mmol/L (137-145)
[2020-06-16] MEDS: PANTOPRAZOLE 40 MG/10 ML VIAL IVP SCH (08:22)
[2020-06-16] MEDS: D5-0.45% NACL WITH KCL 20MEQ/L 1,000 ML IV SCH ×2 (08:22→16:18)
[2020-06-16] MEDS: ALVIMOPAN 12 MG CAPSULE PO SCH ×2 (08:22→20:52)
[2020-06-16] MEDS: HEPARIN SODIUM,PORCINE 5,000 UNIT/ML 1 ML VIAL SQ SCH ×3 (08:22→23:50)
[2020-06-16] MEDS: METOCLOPRAMIDE 5 MG/ML 2 ML VIAL IVP PRN (10:46)
[2020-06-16 11:14] LABS: Basophils % (A) 0 %; Eosinophils # (A) 0.1 k/uL (0-0.7); Eosinophils % (A) 1 %; HCT 44.1 % (39.0-53.0); HGB 13.9 gm/dL (13.0-17.5); Lymphocytes # (A) 0.6 k/uL (1.0-4.8); Lymphocytes % (A) 6 %; MCH 30.3 pg (25.0-35.0); MCHC 31.5 g/dL (31.0-37.0); MCV 96.2 fL (80.0-100.0); Mean Platelet Volume 7.5; Monocytes # (A) 0.4 k/uL (0-1.0); Monocytes % (A) 4 %; Neutrophils # (A) 7.8 k/uL (1.3-7.7); Neutrophils % (A) 87 %; Platelet Count 208 k/uL (150-450); RBC 4.58 m/uL (4.30-5.90); RDW 12.9 % (11.5-15.5)
[2020-06-16] MEDS: HYDROmorphone 1 MG/ML 1 ML SYRINGE IVP PRN ×2 (13:26→17:38)
[2020-06-16] MEDS ORDERED: BENZOCAINE SPRAY 1 CAN MUCOUS MEM PRN (13:26)
--- NOTE | 2020-06-16 14:03 | XR ---
EXAMINATION TYPE: XR chest 1V portable DATE OF EXAM: 06/16/2020 Comparison: 10/21/2018 Clinical History: 70-year-old male NGT placement Findings: NG tube courses below the diaphragm. Heart upper limits of normal in size. There are calcified granul johnson prominent vessel on end at the left hilum. Band of atelectasis at the right base. Mild interstiti al prominence and mild hyperinflation. Impression: Possible underlying COPD. Satisfactory NG tube. Either a prominent vessel on end or calcified granul johnson at the left hilum. Band of atelectasis at the right base.
--- NOTE | 2020-06-16 14:05 | XR ---
EXAMINATION TYPE: XR abdomen acute w cxr DATE OF EXAM: 06/16/2020 COMPARISON: NONE HISTORY: 70-year-old male vomiting, possible blood tinged sputum TECHNIQUE: Supine, upright, and left side down lateral decubitus views of the abdomen are obtained. FINDINGS: Hyperinflation with mild interstitial prominence. Some patchy opacity medial left base, likely atelec tasis. No evidence for free intraperitoneal air. Dilated bowel is present throughout. Small bowel loops measure up to 3.5 cm. Suspect some colonic air as well in the lower abdomen and pelvis. Anterior skin morena suggesting recent laparotomy. IMPRESSION: Anterior skin morena suggesting recent laparotomy. Diffuse dilated small bowel measuring up to 3.5 c m could represent small bowel obstruction or postoperative ileus. Follow-up recommended. No evidence for free air.
[2020-06-16] MEDS ORDERED: IPRATROPIUM-ALBUTEROL 3 ML NEB INHALATION PRN (14:15)
--- NOTE | 2020-06-16 14:28 | P.PN ---
Subjective Progress Note Date: 06/16/20 CHIEF COMPLAINT: Left colon cancer HISTORY OF PRESENT ILLNESS: Patient is status post reversal of colostomy and repair of incisional hernia. He is vomiting this morning. He had a small episode of red vomiting and then the last 2 episodes of very dark. He is having abdominal pain and distention. Dr. Jean reviewed the abdominal x-ray and felt there is evidence of ileus. No evidence of free air. Afebrile. Hemoglobin 14 magnesium 1.9 PHYSICAL EXAM: VITAL SIGNS: Reviewed. GENERAL: Well-developed in no acute distress. HEENT: No sclera icterus. Extraocular movements grossly intact. Moist buccal mucosa. Head is atraumatic, normocephalic. ABDOMEN: Soft. Distended. Diffuse tenderness with palpation. Dressing clean dry and intact NEUROLOGIC: Alert and oriented. Cranial nerves II through XII grossly intact. Patient is deaf ASSESSMENT: 1. History of colon cancer status post reversal of colostomy. Postop day #3 2. History of incisional hernia status post repair of incisional hernia. Postop day #3 3. Ileus with vomiting. PLAN: -Insert NG tube -Diet nothing by mouth -DVT prophylaxis subcu heparin Physician Service Counter Cashier note has been reviewed by physician. Signing provider agrees with the documented findings, assessment, and plan of care. Objective - Vital Signs Vital signs: Vital Signs Temp 98.4 F 06/16/20 07:00 Pulse 105 H 06/16/20 07:00 Resp 17 06/16/20 07:00 BP 130/77 06/16/20 07:00 Pulse Ox 95 06/16/20 07:00 Intake & Output 06/15/20 06/16/20 06/16/20 18:59 06:59 18:59 Intake Total 200 200 Output Total 1710 Balance -1510 200 Weight 77.111 kg Intake: Oral 200 200 Output: Urine 1710 Other: Voiding Method Indwelling Catheter Indwelling Catheter Indwelling Catheter - Labs CBC & Chem 7: 06/16/20 10:57 06/16/20 07:17 Labs: Abnormal Lab Results - Last 24 Hours (Table) 06/16/20 06/16/20 06/16/20 Range/Units 07:17 07:17 10:57 Neutrophils # 7.8 H (1.3-7.7) k/uL Lymphocytes # 0.8 L 0.6 L (1.0-4.8) k/uL Sodium 132 L (137-145) mmol/L BUN 5 L (9-20) mg/dL Creatinine 0.48 L (0.66-1.25) mg/dL Glucose 138 H (74-99) mg/dL Calcium 7.8 L (8.4-10.2) mg/dL
--- NOTE | 2020-06-16 15:22 | PN ---
PROGRESS NOTE DATE OF SERVICE: 06/16/2020 This 70-year-old gentleman who was admitted after a colostomy reversal and repair of incisional hernia is complaining of vomiting. Patient also had abdominal distention. The patient is also complaining of significant scrotal hernia also. The patient underwent a chest x-ray today which is personally reviewed by me showed some atelectasis. Plain x-ray abdomen acute abdominal series also done which showed diffuse dilated small bowel measuring about 3.5 cm possibly ileus or obstruction. The patient being closely monitored. Past medical history reviewed. Review of systems could not be taken. CURRENT MEDICATIONS: Tylenol, Entereg, Benadryl, heparin, Dilaudid, melatonin, Reglan, Zofran and Protonix. PHYSICAL EXAM: Patient is alert, oriented x3. Pulse is 105. Blood pressure 137/70, respiration 17, temperature 98.4, pulse ox 94% on 2 L. HEENT: Conjunctivae normal. Oral mucosa moist. NECK is no jugular venous distention. No carotid bruit. No lymph node enlargement. CARDIOVASCULAR: S1, S2 muffled. RESPIRATIONS: Breath sounds diminished in the bases. A few scattered rhonchi. No crackles. ABDOMEN: Soft and significant diffuse distention. Scrotal edema present. Bowel sounds diminished. Status post recent surgery. LEGS: No edema. No swelling. NERVOUS SYSTEM: No focal deficits. LABORATORY DATA: CBC within normal limits. Other labs are noted. ASSESSMENT: 1. Status post reversal of colostomy with repair of incisional hernia. 2. Abdominal distention possibly ileus rule out obstruction. 3. Scrotal hernia. 4. Severe abdominal pain. 5. History of gastroesophageal reflux disease. 6. Mild persistent asthma. 7. Atelectasis. 8. History of eczema. 9. Anemia, normocytic anemia of chronic disease. 10.Hyponatremia. 11.Mild hypocalcemia. 12.History of hearing disorder and deafness. 13.History of colon cancer with colostomy. 14.Public legal guardian. 15.History of bowel resection. 16.History of nicotine dependence. 17.FULL CODE. RECOMMENDATIONS AND DISCUSSION: Recommend to continue current medications, and symptomatic treatment. Incentive spirometry. I would recommend a course of bronchodilators. Monitor closely with surgery. Protonix and DVT prophylaxis. Guarded prognosis. Further recommendations to follow. MMODL / IJN: [id number] /
[2020-06-16] MEDS: IPRATROPIUM-ALBUTEROL 3 ML NEB INHALATION SCH (20:32)
[2020-06-16] MEDS: MELATONIN 3 MG TABLET PO PRN (22:32)
[2020-06-17] MEDS: D5-0.45% NACL WITH KCL 20MEQ/L 1,000 ML IV SCH ×3 (04:38→20:01)
[2020-06-17] MEDS: HYDROmorphone 1 MG/ML 1 ML SYRINGE IVP PRN ×4 (04:55→18:56)
[2020-06-17] MEDS: IPRATROPIUM-ALBUTEROL 3 ML NEB INHALATION SCH ×3 (07:12→19:42)
[2020-06-17 08:03] LABS: Basophils % (A) 0 %; Eosinophils # (A) 0.2 k/uL (0-0.7); Eosinophils % (A) 3 %; HCT 40.8 % (39.0-53.0); HGB 12.5 gm/dL (13.0-17.5); Lymphocytes # (A) 0.7 k/uL (1.0-4.8); Lymphocytes % (A) 15 %; MCH 29.3 pg (25.0-35.0); MCHC 30.6 g/dL (31.0-37.0); MCV 95.7 fL (80.0-100.0); Mean Platelet Volume 7.5; Monocytes # (A) 0.4 k/uL (0-1.0); Monocytes % (A) 7 %; Neutrophils # (A) 3.7 k/uL (1.3-7.7); Neutrophils % (A) 73 %; Platelet Count 183 k/uL (150-450); RBC 4.26 m/uL (4.30-5.90); WBC 5.1 k/uL (3.8-10.6)
[2020-06-17 08:24] LABS: African American GFR (CKD) >90 (>60 ml/min/1.73 sqM); Anion Gap 4 mmol/L; Blood Urea Nitrogen <2 mg/dL (9-20); Calcium 7.8 mg/dL (8.4-10.2); Carbon Dioxide 30 mmol/L (22-30); Chloride 100 mmol/L (98-107); Glucose 124 mg/dL (74-99); Non-African American GFR(CKD) >90 (>60 ml/min/1.73 sqM); Potassium 4.7 mmol/L (3.5-5.1); Sodium 134 mmol/L (137-145)
[2020-06-17] MEDS: HEPARIN SODIUM,PORCINE 5,000 UNIT/ML 1 ML VIAL SQ SCH ×3 (08:28→23:18)
[2020-06-17] MEDS: ALVIMOPAN 12 MG CAPSULE PO SCH ×2 (08:29→20:01)
[2020-06-17] MEDS: PANTOPRAZOLE 40 MG/10 ML VIAL IVP SCH (08:29)
--- NOTE | 2020-06-17 13:24 | P.PN ---
Subjective Progress Note Date: 06/17/20 CHIEF COMPLAINT: Left colon cancer HISTORY OF PRESENT ILLNESS: Patient is status post reversal of colostomy and repair of incisional hernia. NG tube was inserted yesterday. Still having abdominal pain and distention. Dr. Jean reviewed the abdominal x-ray and felt there is evidence of ileus. No evidence of free air. Large amount of Dark material through NG tube. Afebrile. Hemoglobin 12.5 PHYSICAL EXAM: VITAL SIGNS: Reviewed. GENERAL: Well-developed in no acute distress. HEENT: No sclera icterus. Extraocular movements grossly intact. Moist buccal mucosa. Head is atraumatic, normocephalic. ABDOMEN: Soft. Distended. Diffuse tenderness with palpation. Dressing clean dry and intact NEUROLOGIC: Alert and oriented. Cranial nerves II through XII grossly intact. Patient is deaf ASSESSMENT: 1. History of colon cancer status post reversal of colostomy. Postop day #4 2. History of incisional hernia status post repair of incisional hernia. Postop day #4 3. Postop ileus PLAN: -Continue NG tube -Diet nothing by mouth -DVT prophylaxis subcu heparin -Add Reglan 10 mg IV every 6 hours Physician Business Loan Processor note has been reviewed by physician. Signing provider agrees with the documented findings, assessment, and plan of care. Objective - Vital Signs Vital signs: Vital Signs Temp 98.3 F 06/17/20 07:02 Pulse 84 06/17/20 11:38 Resp 15 06/17/20 07:21 BP 145/86 06/17/20 07:02 Pulse Ox 92 L 06/17/20 07:02 Intake & Output 06/16/20 06/17/20 06/17/20 18:59 06:59 18:59 Output Total 600 1750 1000 Balance -600 -1750 -1000 Weight 77.111 kg Output: Gastric Drainage 200 400 Urine 310 1350 1000 Uretheral (Isaacs) 310 Emesis 90 Other: Voiding Method Indwelling Catheter # Voids 1 - Labs CBC & Chem 7: 06/17/20 07:35 06/17/20 07:35 Labs: Abnormal Lab Results - Last 24 Hours (Table) 06/17/20 06/17/20 Range/Units 07:35 07:35 RBC 4.26 L (4.30-5.90) m/uL Hgb 12.5 L (13.0-17.5) gm/dL MCHC 30.6 L (31.0-37.0) g/dL Lymphocytes # 0.7 L (1.0-4.8) k/uL Sodium 134 L (137-145) mmol/L BUN <2 L (9-20) mg/dL Creatinine 0.43 L (0.66-1.25) mg/dL Glucose 124 H (74-99) mg/dL Calcium 7.8 L (8.4-10.2) mg/dL
--- NOTE | 2020-06-17 15:17 | PN ---
PROGRESS NOTE DATE OF SERVICE: 06/17/2020 This 70-year-old male was admitted after reversal of colostomy, had abdominal distention. Patient also had repair of incisional hernia. NG tube inserted. The patient is n.p.o. No chest pain. No palpitations. No fever. EXAM: Pulse is 80. Blood pressure is 148/56, respirations 16, temp 98.2, pulse ox 98% on 3 L. HEENT: Conjunctivae normal. NECK: No JVD. CARDIOVASCULAR: S1, S2 muffled. RESPIRATION: Breath sounds diminished in the bases. Scattered rhonchi. No crackles. ABDOMEN: Soft, mild diffuse distention present. Slightly less after the NG tube. Bowel sounds diminished and scrotal hernia present. NERVOUS SYSTEM: No focal deficits. LABS: WBC 5.2, hemoglobin 12.5, sodium 130, potassium 4.2. ASSESSMENT: 1. Status post reversal of colostomy with repair of incisional hernia. 2. Abdominal distention with possibly ileus rule out obstruction. 3. Scrotal hernia. 4. Severe abdominal pain. 5. History of gastroesophageal reflux disease. 6. Mild persistent asthma. 7. Atelectasis. 8. History of eczema. 9. Anemia, normocytic anemia of chronic disease. 10.Hyponatremia. 11.Mild hypocalcemia. 12.History of hearing disorder and deafness. 13.History of colon cancer with colostomy. 14.History of public legal guardian. 15.History of bowel resection. 16.History of nicotine dependence. 17.FULL CODE. RECOMMENDATIONS AND DISCUSSION: I recommend to continue current medications, and symptomatic treatment. Continue the conservative line of management with NG tube. Continue DVT prophylaxis. Incentive spirometry. Closely with surgery. Further recommendations to follow. MMODL / IJN: [id number] /
[2020-06-17] MEDS: METOCLOPRAMIDE 5 MG/ML 2 ML VIAL IVP SCH ×3 (15:36→23:18)
[2020-06-18] MEDS: D5-0.45% NACL WITH KCL 20MEQ/L 1,000 ML IV SCH ×2 (03:34→14:59)
[2020-06-18] MEDS: METOCLOPRAMIDE 5 MG/ML 2 ML VIAL IVP SCH ×4 (04:38→23:46)
[2020-06-18] MEDS: HYDROmorphone 1 MG/ML 1 ML SYRINGE IVP PRN ×4 (04:39→21:59)
[2020-06-18] MEDS: ALVIMOPAN 12 MG CAPSULE PO SCH (06:51)
[2020-06-18] MEDS: HEPARIN SODIUM,PORCINE 5,000 UNIT/ML 1 ML VIAL SQ SCH ×3 (08:54→23:41)
[2020-06-18] MEDS: PANTOPRAZOLE 40 MG/10 ML VIAL IVP SCH (08:54)
[2020-06-18] MEDS: IPRATROPIUM-ALBUTEROL 3 ML NEB INHALATION SCH ×3 (09:03→20:33)
--- NOTE | 2020-06-18 13:06 | P.PN ---
Subjective Progress Note Date: 06/18/20 CHIEF COMPLAINT: Left colon cancer HISTORY OF PRESENT ILLNESS: Patient is status post reversal of colostomy and repair of incisional hernia. Patient had 2 bowel movements. He had 200 mL green fluid out of the NG tube. Afebrile. PHYSICAL EXAM: VITAL SIGNS: Reviewed. GENERAL: Well-developed in no acute distress. HEENT: No sclera icterus. Extraocular movements grossly intact. Moist buccal mucosa. Head is atraumatic, normocephalic. ABDOMEN: Soft. Nondistended. Diffuse tenderness with palpation. Dressing clean dry and intact NEUROLOGIC: Alert and oriented. Cranial nerves II through XII grossly intact. Patient is deaf ASSESSMENT: 1. History of colon cancer status post reversal of colostomy. Postop day #5 2. History of incisional hernia status post repair of incisional hernia. Postop day #5 3. Expected Postop ileus PLAN: -Discontinue NG tube -Start a full liquid diet -DVT prophylaxis subcu heparin -Continue Reglan 10 mg IV every 6 hours Physician Epic Prelude Analyst note has been reviewed by physician. Signing provider agrees with the documented findings, assessment, and plan of care. Objective - Vital Signs Vital signs: Vital Signs Temp 98.0 F 06/18/20 07:22 Pulse 82 06/18/20 09:15 Resp 16 06/18/20 07:48 BP 132/80 06/18/20 07:22 Pulse Ox 90 L 06/18/20 07:22 Intake & Output 06/17/20 06/18/20 06/18/20 18:59 06:59 18:59 Intake Total 1125 Output Total 1000 2100 Balance -1000 -975 Intake: Intake, IV Titration 1125 Amount D5-0.45% NaCl with KCl 1125 20Meq/l 1,000 ml @ 125 mls/hr IV .Q8H LASHONDA Rx#: [id number] Output: Gastric Drainage 200 Urine 1000 1900 Other: Voiding Method Urinal Urinal Urinal # Voids 1 1 # Bowel Movements 2 - Labs CBC & Chem 7: 06/17/20 07:35 06/17/20 07:35
--- NOTE | 2020-06-18 19:39 | PN ---
PROGRESS NOTE DATE OF SERVICE: 06/18/2020 This 70-year-old gentleman who was admitted with reversal of colostomy also had abdominal distention and ileus, treated with NG tube. Condition is improving. The patient is able to tolerate p.o. feeds and the patient also had a bowel movement. Surgery is following the patient closely. No chest pain. No palpitations. No fever. PHYSICAL EXAMINATION: The patient is nonverbal at this time. Pulse is 112, blood pressure 146/78, respirations 16, temperature 98.2, pulse ox 92% on room air. HEENT: Conjunctivae normal. NECK: No jugular venous distention. CARDIOVASCULAR SYSTEM: S1, S2 muffled. RESPIRATORY SYSTEM: Breath sounds diminished at the bases. A few scattered rhonchi. ABDOMEN: Soft. Minimum diffuse distention. LEGS: No edema. No swelling. NERVOUS SYSTEM: No focal deficit. LABS: WBC 5.1, hemoglobin 12.5, sodium 134. ASSESSMENT: 1. Status post reversal of colostomy with repair of incisional hernia. 2. Abdominal distention with possible ileus. Rule out obstruction. 3. Scrotal hernia. 4. Severe abdominal pain. 5. History of gastroesophageal reflux disease. 6. Mild persistent asthma. 7. Atelectasis. 8. History of eczema. 9. Anemia, normocytic anemia of chronic disease. 10.Hyponatremia. 11.Mild hypercalcemia. 12.History of hearing disorder and deafness. 13.History of colon cancer with colostomy. 14.History of public legal guardian. 15.History of bowel resection. 16.Nicotine dependence. 17.FULL CODE. RECOMMENDATIONS AND DISCUSSION: I recommend to continue current medication, continue symptomatic treatment. Otherwise, closely follow with Surgery. Repeat labs. Further recommendations to follow. MMODL / IJN: [id number] /
[2020-06-18] MEDS: MELATONIN 3 MG TABLET PO PRN (21:59)
[2020-06-19] MEDS: D5-0.45% NACL WITH KCL 20MEQ/L 1,000 ML IV SCH ×4 (02:37→19:36)
[2020-06-19] MEDS: METOCLOPRAMIDE 5 MG/ML 2 ML VIAL IVP SCH ×3 (06:12→17:23)
[2020-06-19] MEDS: IPRATROPIUM-ALBUTEROL 3 ML NEB INHALATION SCH ×3 (07:38→20:03)
[2020-06-19] MEDS: PANTOPRAZOLE 40 MG/10 ML VIAL IVP SCH (07:44)
[2020-06-19] MEDS: HEPARIN SODIUM,PORCINE 5,000 UNIT/ML 1 ML VIAL SQ SCH ×2 (07:44→17:23)
[2020-06-19] MEDS: HYDROmorphone 1 MG/ML 1 ML SYRINGE IVP PRN (07:45)
[2020-06-19 09:28] LABS: Basophils % (A) 0 %; Eosinophils # (A) 0.1 k/uL (0-0.7); Eosinophils % (A) 3 %; HCT 37.1 % (39.0-53.0); HGB 11.9 gm/dL (13.0-17.5); Lymphocytes # (A) 0.6 k/uL (1.0-4.8); Lymphocytes % (A) 20 %; MCH 30.7 pg (25.0-35.0); MCHC 31.9 g/dL (31.0-37.0); MCV 96.2 fL (80.0-100.0); Mean Platelet Volume 7.2; Monocytes # (A) 0.3 k/uL (0-1.0); Monocytes % (A) 9 %; Neutrophils # (A) 2.1 k/uL (1.3-7.7); Neutrophils % (A) 65 %; Platelet Count 187 k/uL (150-450); RBC 3.86 m/uL (4.30-5.90); WBC 3.2 k/uL (3.8-10.6)
[2020-06-19 09:39] LABS: African American GFR (CKD) >90 (>60 ml/min/1.73 sqM); Anion Gap 4 mmol/L; Blood Urea Nitrogen <2 mg/dL (9-20); Carbon Dioxide 28 mmol/L (22-30); Chloride 102 mmol/L (98-107); Glucose 109 mg/dL (74-99); Non-African American GFR(CKD) >90 (>60 ml/min/1.73 sqM); Potassium 4.3 mmol/L (3.5-5.1); Sodium 134 mmol/L (137-145)
[2020-06-19] MEDS: HYDROcodone/APAP 7.5-325MG 1 EACH TAB PO PRN (12:23)
--- NOTE | 2020-06-19 13:34 | P.PN ---
Subjective Progress Note Date: 06/19/20 CHIEF COMPLAINT: Left colon cancer HISTORY OF PRESENT ILLNESS: Patient is status post reversal of colostomy and repair of incisional hernia. He is having bowel movements. Decrease in his abdominal distention. No vomiting. He is on a full liquid diet. PHYSICAL EXAM: VITAL SIGNS: Reviewed. GENERAL: Well-developed in no acute distress. HEENT: No sclera icterus. Extraocular movements grossly intact. Moist buccal mucosa. Head is atraumatic, normocephalic. ABDOMEN: Soft. Distended. Diffuse tenderness with palpation. Dressing clean dry and intact NEUROLOGIC: Alert and oriented. Cranial nerves II through XII grossly intact. Patient is deaf ASSESSMENT: 1. History of colon cancer status post reversal of colostomy. Postop day #6 2. History of incisional hernia status post repair of incisional hernia. Postop day #6 3. Expected Postop ileus PLAN: -Continue full liquid diet -DVT prophylaxis subcu heparin -Continue Reglan 10 mg IV every 6 hours Physician Electronic Prepress Operator note has been reviewed by physician. Signing provider agrees with the documented findings, assessment, and plan of care. Objective - Vital Signs Vital signs: Vital Signs Temp 98.0 F 06/19/20 07:00 Pulse 100 06/19/20 11:24 Resp 18 06/19/20 07:00 BP 128/75 06/19/20 07:00 Pulse Ox 95 06/19/20 07:00 Intake & Output 06/18/20 06/19/20 06/19/20 18:59 06:59 18:59 Intake Total 360 Balance 360 Weight 77.111 kg Intake: Oral 360 Other: Voiding Method Urinal - Labs CBC & Chem 7: 06/19/20 08:48 06/19/20 08:48 Labs: Abnormal Lab Results - Last 24 Hours (Table) 06/19/20 06/19/20 Range/Units 08:48 08:48 WBC 3.2 L (3.8-10.6) k/uL RBC 3.86 L (4.30-5.90) m/uL Hgb 11.9 L (13.0-17.5) gm/dL Hct 37.1 L (39.0-53.0) % Lymphocytes # 0.6 L (1.0-4.8) k/uL Sodium 134 L (137-145) mmol/L BUN <2 L (9-20) mg/dL Creatinine 0.45 L (0.66-1.25) mg/dL Glucose 109 H (74-99) mg/dL Calcium 8.0 L (8.4-10.2) mg/dL
[2020-06-19] MEDS: ACETAMINOPHEN TAB 325 MG TAB PO PRN (17:25)
--- NOTE | 2020-06-19 23:15 | PN ---
PROGRESS NOTE DATE OF SERVICE: 06/19/2020 This 70-year-old gentleman who was admitted after surgery is complaining of some pain at this time. NG tube was removed. The patient did have some ileus. No chest pain or palpitations. No fever. PHYSICAL EXAMINATION: On exam, alert and oriented x3. Pulse 91, blood pressure 143/87, respirations 16, temperature 98.4, pulse ox 98% on 2 L. HEENT: Conjunctivae normal. Oral mucosa moist. NECK: No jugular venous distention. CARDIOVASCULAR: S1, S2 muffled. RESPIRATORY: Breath sounds diminished at the bases. ABDOMEN: Soft. Mild diffuse distention. Inguinal hernia present. Scrotal hernia present. Bowel sounds present. LEGS: No edema, no swelling. NERVOUS SYSTEM: No focal deficits. LABS: WBC 3.2, hemoglobin 11.9, sodium 134. ASSESSMENT: 1. Status post reversal of colostomy with repair of incisional hernia. 2. Abdominal distention with possibly ileus, improving. 3. Scrotal hernia and inguinal hernia. 4. Severe abdominal pain, improved. 5. History of gastroesophageal reflux disease. 6. Mild leukopenia. 7. Mild persistent asthma. 8. Atelectasis. 9. History of eczema. 10.Anemia, normocytic anemia of chronic disease. 11.Hyponatremia. 12.Mild hypocalcemia. 13.History of hearing disorder and deafness. 14.History of colon cancer with colostomy. 15.History of public legal guardian. 16.History of bowel resection. 17.History of nicotine dependence. 18.FULL CODE. RECOMMENDATIONS AND DISCUSSION: I recommend to continue current medications, continue symptomatic treatment. Otherwise, at this time will add p.o. pain medications. Closely follow with surgery. DVT prophylaxis. Closely monitor. Further recommendations to follow. MMODL / IJN: [id number] /
[2020-06-20] MEDS: METOCLOPRAMIDE 5 MG/ML 2 ML VIAL IVP SCH ×3 (00:21→13:50)
[2020-06-20] MEDS: HEPARIN SODIUM,PORCINE 5,000 UNIT/ML 1 ML VIAL SQ SCH ×4 (00:21→23:51)
[2020-06-20] MEDS: D5-0.45% NACL WITH KCL 20MEQ/L 1,000 ML IV SCH (02:52)
[2020-06-20] MEDS: PANTOPRAZOLE 40 MG TABLET PO SCH (07:16)
[2020-06-20] MEDS: HYDROcodone/APAP 7.5-325MG 1 EACH TAB PO PRN (07:16)
[2020-06-20] MEDS: IPRATROPIUM-ALBUTEROL 3 ML NEB INHALATION SCH ×3 (08:44→20:45)
--- NOTE | 2020-06-20 12:34 | P.PN ---
Subjective Progress Note Date: 06/20/20 CHIEF COMPLAINT: Left colon cancer HISTORY OF PRESENT ILLNESS: Patient is status post reversal of colostomy and repair of incisional hernia. He is having bowel movements. Decrease in his abdominal distention. No vomiting. He is on a full liquid diet. Afebrile. Patient does not feel ready for discharge. PHYSICAL EXAM: VITAL SIGNS: Reviewed. GENERAL: Well-developed in no acute distress. HEENT: No sclera icterus. Extraocular movements grossly intact. Moist buccal mucosa. Head is atraumatic, normocephalic. ABDOMEN: Soft. Mildly distended. Diffuse tenderness with palpation. Dressing clean dry and intact NEUROLOGIC: Alert and oriented. Cranial nerves II through XII grossly intact. Patient is deaf ASSESSMENT: 1. History of colon cancer status post reversal of colostomy. Postop day #7 2. History of incisional hernia status post repair of incisional hernia. Postop day #7 3. Expected Postop ileus PLAN: -Advance diet to regular diet -DVT prophylaxis subcu heparin -discontinue scheduled Reglan -Continue working with physical therapy -Hep-Lock IV -We'll keep patient one more day to see if he tolerates a regular diet and possible discharge home tomorrow. Patient does have a caregiver at home. Physician Brinell Tester note has been reviewed by physician. Signing provider agrees with the documented findings, assessment, and plan of care. Objective - Vital Signs Vital signs: Vital Signs Temp 97.6 F 06/20/20 07:00 Pulse 94 06/20/20 11:18 Resp 18 06/20/20 07:00 BP 137/88 06/20/20 07:00 Pulse Ox 94 L 06/20/20 07:00 Intake & Output 06/19/20 06/20/20 06/20/20 18:59 06:59 18:59 Output Total 800 800 Balance -800 -800 Weight 77.111 kg Output: Urine 800 800 Other: Voiding Method Urinal # Voids 1 - Labs CBC & Chem 7: 06/19/20 08:48 06/19/20 08:48
[2020-06-20] MEDS ORDERED: diphenhydrAMINE 25 MG CAP PO PRN (12:42)
[2020-06-20] MEDS: ACETAMINOPHEN TAB 325 MG TAB PO PRN ×2 (16:47→23:52)
[2020-06-20] MEDS: MELATONIN 3 MG TABLET PO PRN (23:52)
[2020-06-21 02:16] VITALS: RESP 18
[2020-06-21] MEDS: IPRATROPIUM-ALBUTEROL 3 ML NEB INHALATION SCH ×2 (08:29→11:59)
[2020-06-21] MEDS: ACETAMINOPHEN TAB 325 MG TAB PO PRN (08:32)
[2020-06-21] MEDS: PANTOPRAZOLE 40 MG TABLET PO SCH (08:32)
[2020-06-21] MEDS: HEPARIN SODIUM,PORCINE 5,000 UNIT/ML 1 ML VIAL SQ SCH (08:32)
[2020-06-21 09:53] VITALS: BP 157/61; TEMP 98.3
--- NOTE | 2020-06-21 10:52 | P.PN ---
Subjective Progress Note Date: 06/20/20 Principal diagnosis: Colon cancer; status post colostomy reversal 70-year-old male patient with history of left colon cancer admitted to the hospital for reversal of colostomy and repair of incisional hernia; patient is POD #7 Surgery is following and has advanced patient's diet to regular with plan for possible discharge in next 24 hours if patient continues to tolerate well; patient will remain on DVT prophylaxis with subcu heparin; Reglan has been discontinued; PT on board Objective - Vital Signs Vital signs: Vital Signs Temp 97.6 F 06/20/20 07:00 Pulse 92 06/20/20 11:08 Resp 18 06/20/20 07:00 BP 137/88 06/20/20 07:00 Pulse Ox 94 L 06/20/20 07:00 Intake & Output 06/19/20 06/20/20 06/20/20 18:59 06:59 18:59 Output Total 800 800 Balance -800 -800 Output: Urine 800 800 Other: Voiding Method Urinal # Voids 1 - Exam - Constitutional General appearance: Present: average body habitus, cooperative, no acute distress - EENT Eyes: Present: anicteric sclerae, EOMI, PERRLA, normal appearance ENT: Present: hearing grossly normal, normal oropharynx Ears: bilateral: normal - Neck Neck: Present: normal ROM. Absent: lymphadenopathy, rigidity, thyromegaly Carotids: negative: bruit present Thyroid: bilateral: normal size, negative: enlarged, nodule - Respiratory Respiratory: bilateral: CTA, negative: rales, rhonchi, wheezing - Cardiovascular Rhythm: regular Heart sounds: normal: S1, S2 Abnormal Heart Sounds: Absent: systolic murmur, diastolic murmur - Gastrointestinal General gastrointestinal: Present: normal bowel sounds, soft. Absent: distended, organomegaly, tenderness - Genitourinary Genitourinary Comment(s): deferred - Integumentary Integumentary: Present: normal turgor. Absent: jaundiced, rash, ulcer - Neurologic Neurologic: Present: CNII-XII intact. Absent: focal deficits - Musculoskeletal Musculoskeletal: Present: gait normal, strength equal bilaterally - Psychiatric Psychiatric: Present: A&O x's 3, appropriate affect, intact judgment & insight - Labs CBC & Chem 7: 06/19/20 08:48 06/19/20 08:48 Assessment and Plan Assessment: 1. History of CVA; status post colostomy reversal and repair of incisional hernia; POD #7 - POC as above 2. Postop abdominal ileus; resolved; patient is tolerating diet well 3. Gastroesophageal reflux disease; stable on current medications 4. Mild persistent asthma; continue with home inhaler therapy 5. Hearing disorder/deafness DVT prophylaxis; subcu heparin CODE STATUS; full code
--- NOTE | 2020-06-21 11:52 | P.DS ---
Providers Date of admission: 06/13/20 13:21 Expected date of discharge: 06/21/20 Attending physician: Chas Jean Consults: 06/12/20 09:16 Consult Physician Routine Consulting Provider: Manny Robins Consult Reason/Comments: Medical management Do you want consulting provider notified?: Yes Primary care physician: Brown Martinez MD Hospital Course: Patient admitted for elective colonoscopy followed by colostomy reversal with repair incisional hernia. The patient has done well postoperative. Pain is improving. He is tolerating his diet. Moving his bowels. He would like to go home today. Abdomen soft, nondistended, incisions clean and dry. Plan discharge at this time. Follow-up with Dr. Jean early this week. Plan - Discharge Summary New Discharge Prescriptions: No Action Ergocalciferol [Vitamin D2] 50,000 unit PO Q7D Fluticasone/Salmeterol [Advair Hfa 45-21 Mcg Inhaler] 2 puff INHALATION Q12HR Doxylamine Succinate [Unisom] 25 mg PO HS Albuterol Inhaler [Ventolin Hfa Inhaler] 2 puff INHALATION Q4HR PRN PRN Reason: Shortness Of Breath Ammonium Lactate Lotion [Lac-Hydrin 12% Lotion] 1 applic TOPICAL BID Discharge Medication List Doxylamine Succinate [Unisom] 25 mg PO HS 05/07/20 [History] Ergocalciferol [Vitamin D2] 50,000 unit PO Q7D 05/07/20 [History] Fluticasone/Salmeterol [Advair Hfa 45-21 Mcg Inhaler] 2 puff INHALATION Q12HR 05/07/20 [History] Albuterol Inhaler [Ventolin Hfa Inhaler] 2 puff INHALATION Q4HR PRN 06/11/20 [History] Ammonium Lactate Lotion [Lac-Hydrin 12% Lotion] 1 applic TOPICAL BID 06/11/20 [History] Follow up Appointment(s)/Referral(s): [facility], [NON-STAFF] - Brown Martinez MD [Primary Care Provider] - 1 Week Chas Jean MD [STAFF PHYSICIAN] - 1 Week
[2020-06-21 12:03] VITALS: PULSE 92
--- NOTE | 2020-06-24 09:19 | CDI ---
Documentation Clarification Form Date: 06/24/20 From: Farheen Mckeon Phone: If you have a question about this query, please contact Lisette Mccray, [employer] Representative at [phone] between 8am and 5pm. Admit Date: 06/13/20 Discharge Date:06/21/20 Patient Name: Pranav Ochoa Visit Number: [id number] ATTENTION: The Clinical Documentation Specialists (CDI) and [facility] Coding Staff appreciate your assistance in clarifying documentation. Please respond to the clarification below the line at the bottom and electronically sign. The CDI & [facility] Coding staff will review the response and follow-up if needed. Please note: Queries are made part of the Legal Health Record. If you have any questions, please contact the author of this message via ITS. Dear Dr. Robins Abdominal distention possibly ileus rule out obstruction is documented in your 06/16 - 06/18 progress notes. History/Risk Factors: History of colon cancer, colostomy, diverticulosis, right inguinal hernia, incisional hernia Clinical Indicators: Abdominal distention, dilated small bowel on abd x-ray Radiology findings: Abdomen on 06/16 - Diffuses dilated small bowel measuring up to 3.5 cm could represent small bowel obstruction or postoperative ileus Vital Signs: T. 98.3, P. 110, R. 14, BP 115/68 Other Clinical Indicators: Vomiting Treatment: NG Tube In your professional opinion, can you please clarify if the obstruction was? Ruled Out Ruled In Other, please specify Unable to determine Ruled Out MTDD
== END 2020-06-21 14:55 | disposition home health service (06) | DRG 330 ==
LOC: ORWHC2ENDO 08:07 → 4SSUR 12:38 → ORWHC2ENDO 06-13 13:21
PROVIDERS: ADMIT Surgery; ATTEND Surgery
DX: Z43.3 Encounter for attention to colostomy (principal); E87.1 Hypo-osmolality and hyponatremia; J98.11 Atelectasis; K56.7 Ileus, unspecified; K94.09 Other complications of colostomy; D63.8 Anemia in other chronic diseases classified elsewhere; E83.51 Hypocalcemia; D72.819 Decreased white blood cell count, unspecified; G47.00 Insomnia, unspecified; H91.3 Deaf nonspeaking, not elsewhere classified; J45.30 Mild persistent asthma, uncomplicated; K21.9 Gastro-esophageal reflux disease without esophagitis; K40.90 Unilateral inguinal hernia, without obstruction or gangrene, not specified as recurrent; K43.2 Incisional hernia without obstruction or gangrene; K57.90 Diverticulosis of intestine, part unspecified, without perforation or abscess without bleeding; L30.9 Dermatitis, unspecified; R20.0 Anesthesia of skin; Z85.038 Personal history of other malignant neoplasm of large intestine; Z87.891 Personal history of nicotine dependence; Z90.49 Acquired absence of other specified parts of digestive tract; Z79.51 Long term (current) use of inhaled steroids; Y83.2 Surgical operation with anastomosis, bypass or graft as the cause of abnormal reaction of the patient, or of later complication, without mention of misadventure at the time of the procedure
CPT/HCPCS: 44388; 71045; 74022; 80048; 83735; 85025; 88304; 88307; 94640

== ENCOUNTER 2020-10-14 09:39 | Day surgery (SDC) | payer MEDICARE ==
[~2020-10-14 09:39] MED LIST changes: +ACETAMINOPHEN TAB 500 MG TAB PO PRN; +DEXAMETHASONE SOD PHOSPHATE 4 MG/ML 1 ML VIAL IV ONE; +HEPARIN SODIUM,PORCINE 5,000 UNIT/ML 1 ML VIAL SQ PRN; +HYDROmorphone 0.5 MG/0.5 ML SYRINGE IVP PRN; +LIDOCAINE 1% (10MG/ML) FOR IV START INTRADERMA PRN; +MIDAZOLAM 2 MG/2 ML VIAL IV PRN; +ONDANSETRON 4 MG/2 ML VIAL IVP ONE; -ONDANSETRON 4 MG/2 ML VIAL IVP PRN
[2020-10-14] MEDS: LACTATED RINGERS 1,000 ML IV SCH (10:10)
[2020-10-14] MEDS ORDERED: NEOSTIGMINE 1 MG/ML 10 ML VIAL ONE (10:23)
[2020-10-14] MEDS ORDERED: MIDAZOLAM 2 MG/2 ML VIAL ONE (10:23)
[2020-10-14] MEDS ORDERED: fentaNYL (PF) 50 MCG/ML 2 ML AMP ONE (10:23)
[2020-10-14] MEDS ORDERED: GLYCOPYRROLATE 0.2 MG/ML 2 ML VIAL ONE (10:23)
[2020-10-14] MEDS ORDERED: ROCURONIUM 10 MG/ML (10 ML VIAL) IV ONE (10:23)
[2020-10-14] MEDS ORDERED: LIDOCAINE 1% INJ 10MG/ML (20 ML MDV) ONE (10:23)
[2020-10-14] MEDS ORDERED: SUCCINYLCHOLINE CHLORIDE 100 MG/5 ML SYR IV ONE (10:23)
[2020-10-14] MEDS ORDERED: PROPOFOL 10 MG/ML 20 ML VIAL IV ONE (10:23)
--- NOTE | 2020-10-14 10:27 | P.GSHP ---
History of Present Illness H&P Date: 10/14/20 Chief Complaint: Right inguinal hernia This is a-year-old male who presents today for open repair of a large right incarcerated inguinal hernia Past Medical History Past Medical History: Cancer, Hearing Disorder / Deafness Additional Past Medical History / Comment(s): deaf, does not sign, reads instructions that are written to him. LIMITED HHX OBTAINED FROM [facility] AT [facility]. HX COLON CANCER. TACHYCARDIA History of Any Multi-Drug Resistant Organisms: None Reported Past Surgical History: Bowel Resection Additional Past Surgical History / Comment(s): cyst from right hand removed, and rt hip,. colostomy, and reversal 05/2020. COLONOSCOPY Past Anesthesia/Blood Transfusion Reactions: No Reported Reaction Additional Past Anesthesia/Blood Transfusion Reaction / Comment(s): "has never received any blood transfusions" Smoking Status: Former smoker - Past Family History Father History Unknown: Yes Family Medical History: Unable to Obtain Mother History Unknown: Yes Family Medical History: Unable to Obtain Medications and Allergies Home Medications Medication Instructions Recorded Confirmed Type Doxylamine Succinate [Unisom] 25 mg PO HS 05/07/20 10/14/20 History Ergocalciferol [Vitamin D2] 50,000 unit PO Q7D 05/07/20 10/14/20 History Fluticasone/Salmeterol [Advair Hfa 2 puff INHALATION Q12HR 05/07/20 10/14/20 History 45-21 Mcg Inhaler] Albuterol Inhaler [Ventolin Hfa 2 puff INHALATION Q4HR PRN 06/11/20 10/14/20 History Inhaler] Ammonium Lactate Lotion 1 applic TOPICAL BID 06/11/20 10/14/20 History [Lac-Hydrin 12% Lotion] Allergies Allergy/AdvReac Type Severity Reaction Status Date / Time No Known Allergies Allergy Verified 10/14/20 10:04 Surgical - Exam - General well developed, well nourished, no distress - Eyes PERRL - ENT normal pinna - Neck no masses - Respiratory normal expansion - Cardiovascular Rhythm: regular - Abdomen Abdomen: soft, non tender Hernia: inguinal (right) Assessment and Plan Assessment: Large incarcerated right inguinal hernia. We'll perform open repair.
[2020-10-14] MEDS ORDERED: BUPIVACAINE (PF) 0.25% 30 ML VIAL SQ ONE (11:06)
[2020-10-14] MEDS ORDERED: ROPIVACAINE 5 MG/ML 30 ML VIAL MISCELLANE ONE ×2 (11:06→11:19)
[2020-10-14] MEDS ORDERED: ONDANSETRON 4 MG/2 ML VIAL IVP PRN (11:39)
[2020-10-14] MEDS ORDERED: LACTATED RINGERS 1,000 ML IV ONE (11:39)
[2020-10-14] MEDS ORDERED: NALOXONE 0.4 MG/ML 1 ML VIAL IV PRN (11:39)
--- NOTE | 2020-10-14 11:39 | P.OP ---
Date of Procedure: 10/14/20 Preoperative Diagnosis: Incarcerated right inguinal hernia Postoperative Diagnosis: Incarcerated right we will hernia Procedure(s) Performed: ( Incarcerated right we'll hernia Right orchiectomy Anesthesia: GILA Surgeon: Chas Jean Estimated Blood Loss (ml): 5 Pathology: other Condition: stable Disposition: PACU Description of Procedure: The patient's placed on the operative table in the supine position. He received general anesthesia. His right groin was prepped and draped usual sterile fashion. A skin incision was made over the right groin and then using cautery and subcutaneous tissue divided. In the hernia sac was encountered. The fascia external oblique was then exposed and in fascia was then opened with [employer] months scissors. Patient had an incarcerated inguinal hernia. The hernia sac was opened and incarcerated small bowel . Cavity. The hernia sac was dissected free from the cord structures and then transected and oversewn with 0 Vicryl suture. The patient a very large inguinal hernias as I performed a right orchiectomy. The corkscrew then divided between Willow clamps and ligated with 0 silk ties. The specimens of pathology. A piece of Prolene mesh was placed in to the inguinal canal and secured with 2-0 Prolene. The fascia external oblique was then closed using 0 Vicryl suture. Dana's fascia closed with 2-0 Vicryl. Skin was closed interrupted 3-0 Monocryl suture. Dermabond dressing was applied..
[2020-10-14] MEDS ORDERED: HYDROmorphone 0.5 MG/0.5 ML SYRINGE IVP ONE (11:42)
[2020-10-14] MEDS ORDERED: ALBUTEROL NEBULIZED 2.5 MG/3 ML INHALATION PRN (14:31)
[2020-10-14] MEDS: HYDROcodone/APAP 5-325MG 1 EACH TAB PO PRN (14:58)
[2020-10-14] MEDS ORDERED: ERGOCALCIFEROL 50,000 UNIT CAP PO SCH (15:00)
[2020-10-14 15:06] LABS: Basophils % (A) 0 %; Eosinophils % (A) 0 %; HCT 41.1 % (39.0-53.0); HGB 12.9 gm/dL (13.0-17.5); Lymphocytes # (A) 0.5 k/uL (1.0-4.8); Lymphocytes % (A) 6 %; MCH 29.4 pg (25.0-35.0); MCHC 31.3 g/dL (31.0-37.0); Mean Platelet Volume 7.5; Monocytes # (A) 0.1 k/uL (0-1.0); Monocytes % (A) 1 %; Neutrophils # (A) 7.9 k/uL (1.3-7.7); Neutrophils % (A) 93 %; Platelet Count 183 k/uL (150-450); RBC 4.37 m/uL (4.30-5.90); RDW 13.7 % (11.5-15.5); WBC 8.5 k/uL (3.8-10.6)
[2020-10-14] MEDS: DOCUSATE 100 MG CAP PO SCH (19:41)
[2020-10-14] MEDS: SYMBICORT 80-4.5 MCG INHALER INHALATION SCH (19:48)
[2020-10-14 20:00] LABS: African American GFR (CKD) 110.8 (60.0-200.0); Anion Gap 8.1 mmol/L (4.00-12.00); BUN/Creat Ratio 14.29 Ratio (12.00-20.00); Carbon Dioxide 26.9 mmol/L (21.6-31.8); Non-African American GFR(CKD) 95.6 (60.0-200.0); Potassium 4.8 mmol/L (3.5-5.5)
[2020-10-14] MEDS ORDERED: NON FORMULARY DRUG (Doxylamine Succinate [Unisom] 25 MG Tablet) PO SCH (21:00)
--- NOTE | 2020-10-14 23:29 | P.CONS ---
History of Present Illness - Reason for Consult Consult date: 10/14/20 Medical management - Chief Complaint Status post incarcerated right inguinal hernia repair. - History of Present Illness Patient is a 70-year-old male with a known history of COPD, colon cancer with history of bowel resection, colostomy and reversal on 06/19/2020, hearing disorder/deafness and previous history of smoking was admitted to hospital for right inguinal hernia repair. Patient was found to have large right incarcerated inguinal hernia. Patient underwent inguinal hernia repair on the right side and right orchiectomy. Patient is currently lying in the bed comfortably. Pain is controlled with medications. Denies any complaints of nausea or vomiting. No complaints of chest pain or shortness of breath. Currently saturating well on 2 L oxygen via nasal cannula. Laboratory data reviewed. Review of Systems Constitutional: Patient denies any fever or chills . No generalized weakness or weight loss. Abdomen: Patient denied nausea vomiting and diarrhea and abdominal pain. Cardiovascular: Patient denies any chest pain or short of breath no palp itations. Respiratory: patient denied any cough or sputum production. No shortness of breath Neurologic: Patient denied any numbness or tingling headache. Musculoskeletal: Patient denies any complaints of joint swelling or deformity. Skin: Negative Psychiatric: Negative Endocrine: No heat or cold intolerance. No recent weight gain. Genitourinary: No dysuria or hematuria. All other 14 point ROS negative except the above Past Medical History Past Medical History: Cancer, Hearing Disorder / Deafness Additional Past Medical History / Comment(s): deaf, does not sign, reads instructions that are written to him. LIMITED HHX OBTAINED FROM [facility] AT [facility]. HX COLON CANCER. TACHYCARDIA History of Any Multi-Drug Resistant Organisms: None Reported Past Surgical History: Bowel Resection Additional Past Surgical History / Comment(s): cyst from right hand removed, and rt hip,. colostomy, and reversal 05/2020. COLONOSCOPY Past Anesthesia/Blood Transfusion Reactions: No Reported Reaction Additional Past Anesthesia/Blood Transfusion Reaction / Comm: "has never received any blood transfusions" Smoking Status: Former smoker - Past Family History Father History Unknown: Yes Family Medical History: Unable to Obtain Mother History Unknown: Yes Family Medical History: Unable to Obtain Medications and Allergies Home Medications Medication Instructions Recorded Confirmed Type Doxylamine Succinate [Unisom] 25 mg PO HS 05/07/20 10/14/20 History Ergocalciferol [Vitamin D2] 50,000 unit PO Q7D 05/07/20 10/14/20 History Fluticasone/Salmeterol [Advair Hfa 2 puff INHALATION Q12HR 05/07/20 10/14/20 History 45-21 Mcg Inhaler] Albuterol Inhaler [Ventolin Hfa 2 puff INHALATION Q4HR PRN 06/11/20 10/14/20 History Inhaler] Ammonium Lactate Lotion 1 applic TOPICAL BID 06/11/20 10/14/20 History [Lac-Hydrin 12% Lotion] Allergies Allergy/AdvReac Type Severity Reaction Status Date / Time No Known Allergies Allergy Verified 10/14/20 10:04 Physical Exam Vitals: Vital Signs Temp Pulse Pulse Pulse Resp BP BP 10/14/20 14:55 97.3 F L 79 20 135/82 10/14/20 13:45 95 18 134/77 10/14/20 13:15 74 16 144/75 10/14/20 13:00 74 16 143/86 10/14/20 12:45 79 16 134/76 10/14/20 12:30 68 18 128/72 10/14/20 12:15 78 14 141/77 10/14/20 11:59 68 16 133/71 10/14/20 11:44 90 18 138/69 10/14/20 11:29 97.1 F L 98 16 144/70 10/14/20 10:20 98.0 F 104 H 16 130/86 Pulse Ox 10/14/20 14:55 100 10/14/20 13:45 98 10/14/20 13:15 99 10/14/20 13:00 98 10/14/20 12:45 99 10/14/20 12:30 98 10/14/20 12:15 96 10/14/20 11:59 100 10/14/20 11:44 99 10/14/20 11:29 99 10/14/20 10:20 93 L Intake and Output 10/14/20 10/14/20 10/14/20 06:59 14:59 22:59 Intake Total 850 Output Total 10 Balance 840 Intake: IV 850 Output: Estimated Blood Loss 10 Other: Weight 64 kg PHYSICAL EXAMINATION: Patient is lying in the bed comfortably, no acute distress, awake alert and oriented.. HEENT: Normocephalic. Neck is supple. Pupils reactive. Nostrils clear. Oral cavity is moist. Ears reveal no drainage. Neck reveals no JVD, carotid bruits, or thyromegaly. CHEST EXAMINATION: Trachea is central. Symmetrical expansion. Lung henson clear to auscultation and percussion. CARDIAC: Normal S1, S2 with no gallops. No murmurs ABDOMEN: Soft. Bowel sounds present.Midline scar is present and right inguinal surgical site is intact. No organomegaly. No abdominal bruits. Extremities: reveal no edema. No clubbing or cyanosis Neurologically awake, alert, oriented x3 with well-coordinated movements. No focal deficits noted Skin: No rash or skin lesions. Psychiatric: Coperative. Nonsuicidal Musculoskeletal: No joint swelling or deformity. Normal range of motion. Results CBC & Chem 7: 10/14/20 14:41 10/14/20 14:41 Labs: Abnormal Lab Results - Last 24 Hours (Table) 10/14/20 Range/Units 14:41 Hgb 12.9 L (13.0-17.5) gm/dL Neutrophils # 7.9 H (1.3-7.7) k/uL Lymphocytes # 0.5 L (1.0-4.8) k/uL Assessment and Plan Assessment: Status post right incarcerated right inguinal hernia repair and right orchiectomy. Postoperative day 0 Recent history of colon cancer status post bowel resection and colostomy bag placement and reversal in May 2020 COPD not in exacerbation Hearing disorder/deafness DVT prophylaxis on Lovenox subcu Plan: Patient will be continued on pain management and bowel regimen. Encourage incentive spirometry and ambulation. Continue with breathing treatments and Symbicort as per home regimen. Patient is currently tolerating oral diet. We will continue to follow with you and further recommendations based on the clinical course. Thank you for your consult..
[2020-10-15] MEDS: HYDROcodone/APAP 5-325MG 1 EACH TAB PO PRN (06:16)
[2020-10-15] MEDS: LACTATED RINGERS 1,000 ML IV SCH (08:22)
[2020-10-15] MEDS: DOCUSATE 100 MG CAP PO SCH (08:22)
[2020-10-15] MEDS ORDERED: ENOXAPARIN 40 MG/0.4 ML SYRINGE SQ SCH (09:00)
[2020-10-15] MEDS: SYMBICORT 80-4.5 MCG INHALER INHALATION SCH (11:32)
[2020-10-15 12:46] VITALS: BMI 18.6
--- NOTE | 2020-10-15 13:35 | P.DS ---
Providers Expected date of discharge: 10/15/20 Attending physician: Chas Jean Consults: 10/14/20 11:39 Consult Physician Routine Consulting Provider: Manny Robins Consult Reason/Comments: Medical management Do you want consulting provider notified?: Yes Primary care physician: Brown Martinez MD Hospital Course: Discharge diagnosis 1. Incarcerated right inguinal hernia status post repair of incarcerated right inguinal hernia and right orchiectomy Hospital course This is a 70-year-old male with a known incarcerated right inguinal hernia he is status post repair of the incarcerated right inguinal hernia and right orchiectomy. Patient has tolerated surgery well. His pain is controlled. He is tolerating diet. He is afebrile. He is ambulating. Patient is stable for discharge. Please refer to chart for any further details. Physician Courtesy Van Driver note has been reviewed by physician. Signing provider agrees with the documented findings, assessment, and plan of care. Patient Condition at Discharge: Stable Plan - Discharge Summary Discharge Rx Participant: Yes New Discharge Prescriptions: New Docusate [Colace] 100 mg PO BID #30 capsule HYDROcodone/APAP 7.5-325MG [[place] 7.5-325] 1 tab PO Q6HR PRN 3 Days #12 tab PRN Reason: Pain Continue Ergocalciferol [Vitamin D2 (DRISDOL)] 50,000 unit PO Q7D Fluticasone/Salmeterol [Advair Hfa 45-21 Mcg Inhaler] 2 puff INHALATION Q12HR Doxylamine Succinate [Unisom] 25 mg PO HS Albuterol Inhaler [Ventolin Hfa Inhaler] 2 puff INHALATION Q4HR PRN PRN Reason: Shortness Of Breath Ammonium Lactate Lotion [Lac-Hydrin 12% Lotion] 1 applic TOPICAL BID Discharge Medication List Doxylamine Succinate [Unisom] 25 mg PO HS 05/07/20 [History] Ergocalciferol [Vitamin D2 (DRISDOL)] 50,000 unit PO Q7D 05/07/20 [History] Fluticasone/Salmeterol [Advair Hfa 45-21 Mcg Inhaler] 2 puff INHALATION Q12HR 05/07/20 [History] Albuterol Inhaler [Ventolin Hfa Inhaler] 2 puff INHALATION Q4HR PRN 06/11/20 [History] Ammonium Lactate Lotion [Lac-Hydrin 12% Lotion] 1 applic TOPICAL BID 06/11/20 [History] Docusate [Colace] 100 mg PO BID #30 capsule 10/15/20 [Rx] HYDROcodone/APAP 7.5-325MG [[place] 7.5-325] 1 tab PO Q6HR PRN 3 Days #12 tab 10/15/20 [Rx] Follow up Appointment(s)/Referral(s): Chas Jean MD [STAFF PHYSICIAN] - 1 Week Activity/Diet/Wound Care/Special Instructions: No driving while taking [place] No lifting over 10 pounds You may shower. No soaking or tub baths for 2 weeks Very light activity until you are reevaluated at your follow up appointment with your surgeon Diet regular Discharge Disposition: HOME SELF-CARE
--- NOTE | 2020-10-15 15:08 | P.PN ---
Subjective Progress Note Date: 10/15/20 Medical management - Chief Complaint Status post incarcerated right inguinal hernia repair. - History of Present Illness Patient is a 70-year-old male with a known history of COPD, colon cancer with history of bowel resection, colostomy and reversal on 06/19/2020, hearing disorder/deafness and previous history of smoking was admitted to hospital for r ight inguinal hernia repair. Patient was found to have large right incarcerated inguinal hernia. Patient underwent inguinal hernia repair on the right side and right orchiectomy. Patient is currently lying in the bed comfortably. Pain is controlled with medications. Denies any complaints of nausea or vomiting. No complaints of chest pain or shortness of breath. Currently saturating well on 2 L oxygen via nasal cannula. Laboratory data reviewed. 10/15/2020 Patient is seen and evaluated in follow-up with no acute overnight issues. Patient recently underwent right inguinal hernia repair along with right orchiectomy with Dr. Jean. Patient continues to have some right-sided abdominal tenderness although states has improved from yesterday. Patient reports passing gas but has not had a bowel movement. Tolerating diet with no reports of nausea or vomiting noted. Oxygen saturation is 91-94% on room air. Patient is afebrile. Patient has a history of hearing disorder/deafness and communicates by writing everything down. Review of systems: Constitutional: No reports of fatigue, fever, or chills Cardiovascular: No reports of chest pain or palpitations Respiratory: No reports of shortness of breath or cough GI: No reports of nausea, vomiting, or diarrhea, reports right-sided abdominal discomfort on palpation : No reports of dysuria or retention Neurovascular: No reports of weakness or numbness All medications have been reviewed Objective - Vital Signs Vital signs: Vital Signs Temp 98.1 F 10/15/20 07:15 Pulse 92 10/15/20 08:00 Resp 18 10/15/20 07:15 BP 108/66 10/15/20 07:15 Pulse Ox 91 L 10/15/20 07:15 Intake & Output 10/14/20 10/15/20 10/15/20 18:59 06:59 18:59 Intake Total 850 Output Total 210 600 250 Balance 640 -600 -250 Weight 64 kg Intake: IV 850 Output: Urine 200 600 250 Estimated Blood Loss 10 Other: Voiding Method Urinal # Voids 2 - Exam Patient is sitting up in the bed comfortably, no acute distress, awake alert and oriented.. HEENT: Normocephalic. Neck is supple. Pupils reactive. Nostrils clear. Oral cavity is moist. Ears reveal no drainage. Neck reveals no JVD, carotid bruits, or thyromegaly. CHEST EXAMINATION: Trachea is central. Symmetrical expansion. Lung henson clear to auscultation and percussion. CARDIAC: Normal S1, S2 with no gallops. No murmurs ABDOMEN: Soft. Bowel sounds present. Midline scar is present and right inguinal surgical site is intact. Right-sided tenderness noted on palpation No organomegaly. No abdominal bruits. Extremities: reveal no edema. No clubbing or cyanosis Neurologically awake, alert, oriented x3 with well-coordinated movements. No focal deficits noted Skin: No rash or skin lesions. Psychiatric: Cooperative. Non-suicidal Musculoskeletal: No joint swelling or deformity. Normal range of motion. - Labs CBC & Chem 7: 10/14/20 14:41 10/14/20 14:41 Labs: Abnormal Lab Results - Last 24 Hours (Table) 10/14/20 10/14/20 Range/Units 14:41 14:41 Hgb 12.9 L (13.0-17.5) gm/dL Neutrophils # 7.9 H (1.3-7.7) k/uL Lymphocytes # 0.5 L (1.0-4.8) k/uL Glucose 134 H (70-110) mg/dL Assessment and Plan Assessment: Status post right incarcerated right inguinal hernia repair and right orchiectomy. Postoperative day 1 Recent history of colon cancer status post bowel resection and colostomy bag placement and reversal in May 2020 COPD not in exacerbation Hearing disorder/deafness DVT prophylaxis on Lovenox subcu Plan: Patient will be continued on pain management and bowel regimen. Encourage incentive spirometry and ambulation. Continue with breathing treatments and Symbicort as per home regimen. Patient is currently tolerating oral diet. We will continue to follow with you and further recommendations based on the clinical course. Anticipated discharge today. Thank you for this consult and we'll continue to follow during hospitalization.
[2020-10-15 15:50] VITALS: BP 116/71; PULSE 100; RESP 16; TEMP 97.7
== END 2020-10-15 15:30 | disposition home or self-care (01) ==
LOC: OR 09:39 → 5NMEDONC 13:52 → OR 10-15 15:30
PROVIDERS: ATTEND Surgery
DX: K40.30 Unilateral inguinal hernia, with obstruction, without gangrene, not specified as recurrent (principal); J44.9 Chronic obstructive pulmonary disease, unspecified; H91.90 Unspecified hearing loss, unspecified ear; Z90.49 Acquired absence of other specified parts of digestive tract; Z87.891 Personal history of nicotine dependence; Z85.038 Personal history of other malignant neoplasm of large intestine; Z98.890 Other specified postprocedural states; Z79.51 Long term (current) use of inhaled steroids; Z79.899 Other long term (current) drug therapy
CPT/HCPCS: 94640 ×2; 88305; 80048; 85025; 49507; 54520; C1781; J2250; J1644; J1100; J2710; J0690; J2405; J2001; J1650; J3010; J2795; J0330; J2704; J1170

== ENCOUNTER 2020-11-07 06:15 | Day surgery (SDC) | payer MEDICARE ==
[2020-11-05 16:29] VITALS: BMI 22.4
[~2020-11-07 06:15] MED LIST changes: -HYDROmorphone 0.5 MG/0.5 ML SYRINGE IVP PRN; +LACTATED RINGERS 1,000 ML IV SCH; -LIDOCAINE 1% (10MG/ML) FOR IV START INTRADERMA PRN
[2020-11-07] MEDS ORDERED: LIDOCAINE 1% (10MG/ML) FOR IV START INTRADERMA ONE (08:50)
[2020-11-07] MEDS ORDERED: HEPARIN SODIUM,PORCINE 5,000 UNIT/ML 1 ML VIAL SQ ONE (09:30)
--- NOTE | 2020-11-07 09:41 | P.ANPRN ---
Procedure Note - Anesthesia - Nerve Block Performed Bilateral Erector Spinae Single Time Out Performed: Yes Date of Procedure: 11/07/20 Procedure Start Time: :15 Procedure Stop Time: :30 Location of Patient: PreOp Indication: Acute Post-Operative Pain, Requested by Surgeon Sedation Type: Sedate with meaningful contact maintained Preparation: Sterile Prep, Sterile Dressing Position: Sitting Catheter: None Needle Types: On-Q Needle Gauge: 20 Ultrasound used to visualize needle placement: Yes Ultrasound used to observe medication spread: Yes Injectate: Other (see comment) (Ropivacaine 0.25% w/ decadron 4 mg 25 ml per side)
[2020-11-07] MEDS ORDERED: LIDOCAINE 1% INJ 10MG/ML (20 ML MDV) ONE (10:00)
[2020-11-07] MEDS ORDERED: DEXAMETHASONE SOD PHOSPHATE 4 MG/ML 1 ML VIAL ONE (10:00)
[2020-11-07] MEDS ORDERED: PROPOFOL 10 MG/ML 20 ML VIAL IV ONE (10:00)
[2020-11-07] MEDS ORDERED: fentaNYL (PF) 50 MCG/ML 2 ML AMP ONE (10:00)
[2020-11-07] MEDS ORDERED: SUCCINYLCHOLINE CHLORIDE 100 MG/5 ML SYR IV ONE (10:00)
[2020-11-07] MEDS ORDERED: WATER FOR INJECTION, STERILE 10 ML VIAL IV ONE (10:00)
[2020-11-07] MEDS ORDERED: ROPIVACAINE 5 MG/ML 30 ML VIAL ONE (10:00)
[2020-11-07] MEDS ORDERED: ePHEDrine SULFATE/0.9% NACL/PF 50 MG/5 ML SYRINGE IV ONE (10:00)
[2020-11-07] MEDS ORDERED: MIDAZOLAM 2 MG/2 ML VIAL ONE (10:00)
[2020-11-07] MEDS ORDERED: PHENYLEPHRINE 10 MG/ML VIAL ONE (10:00)
--- NOTE | 2020-11-07 10:00 | P.GSHP ---
History of Present Illness H&P Date: 11/07/20 Chief Complaint: Left inguinal hernia This a 70-year-old male who presents today for open repair of left inguinal hernia. Patient developed a tender mass in his left groin. Past Medical History Past Medical History: Cancer, Hearing Disorder / Deafness Additional Past Medical History / Comment(s): DEAF, READS LIPS, COMMUNICATES BY READING AND WRITING, HAND GESTURES AND NODDING HEAD YES OR NO. LIMITED HHX O BTAINED/UPDATED WITH ELIS FROM VISITING NURSES-SHE COMES ON WEDNESDAYS TO TAKE HIM GROCERY SHOPPING, ASSIST WITH BATH ., PATIENT LIVES ALONE IN APARTMENT, HAS NO FAMILY. , [facility] # [phone]. HX COLON CANCER. TACHYCARDIA History of Any Multi-Drug Resistant Organisms: None Reported Past Surgical History: Bowel Resection, Hernia Repair Additional Past Surgical History / Comment(s): cyst from right hand removed, and rt hip,. colostomy, and reversal 05/2020. COLONOSCOPY, RIGHT INGUINAL HERNIA REPAIR WITH RIGHT ORCHIECTOMY 10/14/20. Past Anesthesia/Blood Transfusion Reactions: Unable to Obtain Additional Past Anesthesia/Blood Transfusion Reaction / Comment(s): "has never received any blood transfusions" Past Psychological History: No Psychological Hx Reported Additional Psychological History / Comment(s): PT LIVES ALONE, DEAF, COMMUNICATES BY WRITING EVERYTHING DOWN., READING LIPS, USING HAND GESTURES AND NODDING YES OR NO., NO FAMILY , HAS [facility] [employer]. Smoking Status: Former smoker Past Alcohol Use History: None Reported Additional Past Alcohol Use History / Comment(s): quit smoking and drinking, 2018,. started smoking at age 14 smoked 1ppd, Past Drug Use History: None Reported - Past Family History Father History Unknown: Yes Family Medical History: Unable to Obtain Mother History Unknown: Yes Family Medical History: Unable to Obtain Medications and Allergies Home Medications Medication Instructions Recorded Confirmed Type Docusate [Colace] 100 mg PO BID #30 capsule 10/15/20 11/07/20 Rx HYDROcodone/APAP 7.5-325MG [[place] 1 tab PO DAILY PRN 11/05/20 11/07/20 History 7.5-325] Allergies Allergy/AdvReac Type Severity Reaction Status Date / Time No Known Allergies Allergy Verified 11/07/20 08:42 Surgical - Exam Vital Signs Temp Pulse Resp BP Pulse Ox 98.1 F 111 H 16 162/91 95 11/07/20 08:50 11/07/20 08:50 11/07/20 08:50 11/07/20 08:50 11/07/20 08:50 - General well developed, well nourished, no distress - Eyes PERRL - ENT normal pinna - Neck no masses - Respiratory normal expansion - Cardiovascular Rhythm: regular - Abdomen Abdomen: soft, non tender Hernia: inguinal (Left inguinal hernia) Assessment and Plan Assessment: Left inguinal hernia. We'll perform open repair
[2020-11-07] MEDS ORDERED: BUPIVACAINE (PF) 0.25% 30 ML VIAL SQ ONE ×2 (10:03→10:45)
[2020-11-07] MEDS ORDERED: LACTATED RINGERS 1,000 ML IV ONE ×2 (10:30→10:58)
[2020-11-07] MEDS ORDERED: HYDROmorphone 0.5 MG/0.5 ML SYRINGE IVP PRN (10:58)
[2020-11-07] MEDS ORDERED: ONDANSETRON 4 MG/2 ML VIAL IVP PRN (10:58)
[2020-11-07] MEDS ORDERED: NALOXONE 0.4 MG/ML 1 ML VIAL IV PRN (10:58)
--- NOTE | 2020-11-07 10:58 | P.OP ---
Date of Procedure: 11/07/20 Preoperative Diagnosis: Left inguinal hernia Postoperative Diagnosis: Left inguinal hernia Procedure(s) Performed: (Left inguinal hernia Excision of cord lipoma Anesthesia: LUIS ANTONIO Surgeon: Chas Jean Estimated Blood Loss (ml): 5 Pathology: other (Cord lipoma) Condition: stable Disposition: PACU Description of Procedure: MDESCRIPTION OF PROCEDURE: The patient was placed in the supine position after receiving adequate anesthesia. Left groin was prepped and draped in the usual sterile fashion. A standard hernia incision was made and the subcutaneous tissues were divided with electrocautery. The fascia of the external oblique was exposed. A andrzej the fascia was made with #15 blade. The fascia was then opened with pair of Metzenbaum scissors. A Weitlaner retractor was placed in the wound and the cord structures were grasped and dissected free from the ingui nal canal. A rubber [place] drain was placed around the cord structures. The hernial sac was seen on the anterior-medial portion of the cord and this was dissected free from the cord. A cord lipoma was dissected free and sent to pathology. The hernia sac was then invaginated to the peritoneal cavity. Using blunt finger dissection, the preperitoneal space was dissected and then the Prolene hernial mesh plug was placed into the prepared space. The inferior leaf was expanded. The superior leaf was secured to the pubic tubercle using 2- 0 Prolene suture. The lateral portion of the superior leaf was incised and cords tied and secured to the transversalis fascia using 2-0 Prolene suture. Fascia of the external oblique was then closed using #0 Vicryl suture. The Max drain was removed. The Scarpas fascia was then closed with 3-0 Vicryl suture and skin was closed with morena. The patient tolerated the procedure well.
[2020-11-07] MEDS: HYDROmorphone 0.5 MG/0.5 ML SYRINGE IVP PRN ×2 (11:20→11:33)
[2020-11-07] MEDS: amLODIPine 10 MG TAB PO SCH (14:17)
--- NOTE | 2020-11-07 14:45 | CONS ---
CONSULTATION DATE OF SERVICE: 11/07/2020 REASON FOR CONSULTATION: Advice regarding bowel resection and other multiple medical issues requested by Dr. Jean. HISTORY OF PRESENT ILLNESS: This 70-year-old gentleman with a past medical history of hard of hearing, hearing deficits and inability to hear and as well as history of colon cancer, tachycardia, history of bowel resection, hernia repair and colostomy, being followed by primary physician in the outpatient setting underwent left inguinal hernia repair and as well as excision of cord lipoma by Dr. Jean. The patient tolerated the procedure well and the patient admitted for further evaluation and treatment. There is no history of fever, rigors. No history of headache, loss of consciousness or seizures. The patient appears to be emaciated, BMI is only 18.6. Apparently patient lives by himself at an apartment and the nurse comes and helps him with shopping, bathing, etc. Currently, the patient unable to communicate and communication is through writing on a piece of paper at this time. The patient does not seem to be in obvious distress. No history of trauma at this time. PAST MEDICAL HISTORY: History of hard of hearing, history of CA of colon, bowel resection. MEDICATIONS: Medications are home medications: 1. [place]. 2. Colace 100 mg b.i.d. ALLERGIES: None. FAMILY HISTORY: Per chart, unable to obtain. SOCIAL HISTORY AND REVIEW OF SYSTEMS: Could not be taken. PHYSICAL EXAMINATION: Patient is conscious, comfortable. Pulse 97, blood pressure 152/84, respirations 16, temperature 97.9, pulse ox 96% on room. HEENT: Conjunctivae normal. NECK: No jugular venous distention. CARDIOVASCULAR: S1, S2 muffled. RESPIRATORY: Breath sounds diminished at the bases. No rhonchi, no crackles. ABDOMEN: Soft, nontender. Status post surgery. LEGS : No edema. No swelling. NERVOUS SYSTEM: No focal deficits. LABS: Labs are at this time currently not available but random blood sugars elevated in the preoperative labs done last month. ASSESSMENT: 1. Status post left inguinal hernia repair. 2. Excision of cord lipoma. 3. Hypertension. 4. Slight tachycardia. 5. Elevated random blood glucose on the previous labs. 6. Hard of hearing. 7. Severe protein-calorie malnutrition, probably from diminished p.o. intake. 8. History of bowel resection. 9. History of colostomy and reversal. 10.History of colon cancer. RECOMMENDATIONS AND DISCUSSION: This 70-year-old gentleman presented with multiple medical issues, at this time I recommend to continue current medications, continue symptomatic treatment. I would recommend Norvasc for control of blood pressure and basic labs also. The patient also had significant malnutrition, exact etiology is unknown at this time. I would recommend dietary evaluation and Ensure supplements. Otherwise, further evaluation regarding the weight loss could be done as an outpatient by the primary physician. Otherwise, the prognosis guarded. We will follow the patient closely. Thank you Dr. Jean for letting us participate in the care of this patient. MMODL / IJN: [id number] /
[2020-11-07 15:24] LABS: Basophils % (A) 0 %; Eosinophils % (A) 0 %; HCT 40.7 % (39.0-53.0); HGB 12.8 gm/dL (13.0-17.5); Lymphocytes # (A) 0.4 k/uL (1.0-4.8); Lymphocytes % (A) 6 %; MCH 29.4 pg (25.0-35.0); MCHC 31.4 g/dL (31.0-37.0); MCV 93.8 fL (80.0-100.0); Mean Platelet Volume 7.4; Monocytes # (A) 0.1 k/uL (0-1.0); Monocytes % (A) 1 %; Neutrophils # (A) 5.6 k/uL (1.3-7.7); Neutrophils % (A) 92 %; Platelet Count 199 k/uL (150-450); RBC 4.34 m/uL (4.30-5.90); RDW 13.6 % (11.5-15.5); WBC 6.1 k/uL (3.8-10.6)
[2020-11-07 15:47] LABS: ALT 9 U/L (4-49); AST 16 U/L (17-59); African American GFR (CKD) >90 (>60 ml/min/1.73 sqM); Albumin 3.7 g/dL (3.5-5.0); Albumin/Globulin Ratio 1.4; Alkaline Phosphatase 80 U/L (38-126); Anion Gap 6 mmol/L; Blood Urea Nitrogen 10 mg/dL (9-20); Calcium 8.6 mg/dL (8.4-10.2); Carbon Dioxide 29 mmol/L (22-30); Chloride 101 mmol/L (98-107); Globulin 2.7 g/dL; Glucose 118 mg/dL (74-99); Non-African American GFR(CKD) >90 (>60 ml/min/1.73 sqM); Potassium 4.9 mmol/L (3.5-5.1); Sodium 136 mmol/L (137-145); Total Bilirubin 0.4 mg/dL (0.2-1.3); Total Protein 6.4 g/dL (6.3-8.2)
[2020-11-07] MEDS: HYDROcodone/APAP 5-325MG 1 EACH TAB PO PRN (21:11)
[2020-11-08] MEDS: HYDROcodone/APAP 5-325MG 1 EACH TAB PO PRN (05:31)
[2020-11-08 06:59] VITALS: BP 100/72; PULSE 78; RESP 16; TEMP 97.6
[2020-11-08] MEDS: amLODIPine 10 MG TAB PO SCH (07:01)
[2020-11-08] MEDS ORDERED: ENOXAPARIN 40 MG/0.4 ML SYRINGE SQ SCH (09:00)
--- NOTE | 2020-11-08 11:47 | P.DS ---
Providers Date of admission: 11/07/2020 Expected date of discharge: 11/08/20 Attending physician: Chas Jean Consults: 11/07/20 11:02 Consult Physician Routine Consulting Provider: Manny Robins Consult Reason/Comments: Medical management Do you want consulting provider notified?: Yes Primary care physician: Stated None Hospital Course: Is a 70-year-old male underwent repair of left internal hernia. Patient did well postoperatively. Please see hospital chart for details. Procedures: (Left inguinal hernia Patient Condition at Discharge: Good Plan - Discharge Summary Discharge Rx Participant: Yes New Discharge Prescriptions: No Action Docusate [Colace] 100 mg PO BID #30 capsule HYDROcodone/APAP 7.5-325MG [[place] 7.5-325] 1 tab PO DAILY PRN PRN Reason: Pain Discharge Medication List Docusate [Colace] 100 mg PO BID #30 capsule 10/15/20 [Rx] HYDROcodone/APAP 7.5-325MG [[place] 7.5-325] 1 tab PO DAILY PRN 11/05/20 [History] Discharge Disposition: HOME SELF-CARE
== END 2020-11-08 13:24 | disposition home or self-care (01) ==
LOC: OR 06:15 → 4SSUR 11:28 → OR 11-08 13:24
PROVIDERS: ATTEND Surgery
DX: K40.90 Unilateral inguinal hernia, without obstruction or gangrene, not specified as recurrent (principal); D17.6 Benign lipomatous neoplasm of spermatic cord; I10 Essential (primary) hypertension; E43 Unspecified severe protein-calorie malnutrition; J44.9 Chronic obstructive pulmonary disease, unspecified; H91.90 Unspecified hearing loss, unspecified ear; Z79.899 Other long term (current) drug therapy; Z90.49 Acquired absence of other specified parts of digestive tract; Z85.038 Personal history of other malignant neoplasm of large intestine; Z87.891 Personal history of nicotine dependence
CPT/HCPCS: 64486; 88304; 80053; 85025; 49505; C1781; J2250; J1644; J1100; J2370; J0690; J2405; J2001; J1650; J3010; J2795; J0330; J2704; J1170

== ENCOUNTER → 2021-02-11 | Outpatient (CLI) | payer MEDICARE ==
[2021-02-11 16:14] LABS: Basophils # (A) 0.1 k/uL (0-0.2); Basophils % (A) 1 %; Eosinophils # (A) 0.1 k/uL (0-0.7); Eosinophils % (A) 3 %; HCT 39.9 % (39.0-53.0); HGB 13.5 gm/dL (13.0-17.5); Lymphocytes # (A) 1.2 k/uL (1.0-4.8); Lymphocytes % (A) 25 %; MCH 31.3 pg (25.0-35.0); MCHC 33.8 g/dL (31.0-37.0); MCV 92.5 fL (80.0-100.0); Mean Platelet Volume 7.7; Monocytes # (A) 0.2 k/uL (0-1.0); Monocytes % (A) 5 %; Neutrophils % (A) 65 %; Platelet Count 179 k/uL (150-450); RBC 4.31 m/uL (4.30-5.90); RDW 13.6 % (11.5-15.5); WBC 4.6 k/uL (3.8-10.6)
== END | disposition home or self-care (01) ==
LOC: LABPAT 13:45
PROVIDERS: ATTEND Surgery
DX: Z01.818 Encounter for other preprocedural examination (principal); K43.0 Incisional hernia with obstruction, without gangrene
CPT/HCPCS: 36415; 85025; 93005

== ENCOUNTER 2021-02-18 10:23 | Inpatient (IN) | payer MEDICARE ==
[2021-02-11 14:07] VITALS: BMI 25.0
[~2021-02-18 10:23] MED LIST changes: -HEPARIN SODIUM,PORCINE 5,000 UNIT/ML 1 ML VIAL SQ PRN; +HEPARIN SODIUM,PORCINE/PF 5,000 UNIT/0.5 ML SYRINGE SQ PRN; -LACTATED RINGERS 1,000 ML IV SCH; +LIDOCAINE 1% (10MG/ML) FOR IV START INTRADERMA PRN
--- NOTE | 2021-02-18 10:50 | P.GSHP ---
History of Present Illness H&P Date: 02/18/21 Chief Complaint: Incisional hernia This a 71-year-old male presents today open repair of incisional hernia. He says. History of colostomy and then colostomy reversal. Past Medical History Past Medical History: Cancer, Hearing Disorder / Deafness Additional Past Medical History / Comment(s): DEAF, READS LIPS, COMMUNICATES BY READING AND WRITING, HAND GESTURES AND NODDING HEAD YES OR NO. LIMITED HHX OBTAINED/UPDATED WITH BARTOLOME FROM VISITING NURSES-SHE COMES ON WEDNESDAYS TO TAKE HIM GROCERY SHOPPING, ASSIST WITH BATH ., PATIENT LIVES ALONE IN APARTMENT, HAS NO FAMILY. , [facility] # [phone]. HX COLON CANCER. TACHYCARDIA History of Any Multi-Drug Resistant Organisms: None Reported Past Surgical History: Bowel Resection, Hernia Repair Additional Past Surgical History / Comment(s): cyst from right hand removed, and rt hip,. colostomy, and reversal 05/2020. COLONOSCOPY, RIGHT INGUINAL HERNIA REPAIR WITH RIGHT ORCHIECTOMY 10/14/20. LEFT INGUINAL HERNIA REPAIR 11/07/2020 Past Anesthesia/Blood Transfusion Reactions: Unable to Obtain Additional Past Anesthesia/Blood Transfusion Reaction / Comment(s): "has never received any blood transfusions" Smoking Status: Former smoker - Past Family History Father History Unknown: Yes Family Medical History: Unable to Obtain Mother History Unknown: Yes Family Medical History: Unable to Obtain Medications and Allergies Home Medications Medication Instructions Recorded Confirmed Type Docusate [Colace] 100 mg PO HS PRN 02/11/21 02/11/21 History Ergocalciferol (Vitamin D2) 1,250 mcg PO Q7D 02/11/21 02/11/21 History [Vitamin D2 (50,000 Iu)] Allergies Allergy/AdvReac Type Severity Reaction Status Date / Time No Known Allergies Allergy Verified 02/11/21 14:02 Surgical - Exam - General well developed, well nourished, no distress - Eyes PERRL - ENT normal pinna - Neck no masses - Respiratory normal expansion - Cardiovascular Rhythm: regular - Abdomen Abdomen: soft, non tender Hernia: incisional Assessment and Plan Assessment: Incisional hernia. We'll performed open repair.
[2021-02-18] MEDS: LACTATED RINGERS 1,000 ML IV SCH (10:53)
[2021-02-18] MEDS ORDERED: ROCURONIUM 10 MG/ML (5 ML VIAL) IV ONE (11:37)
[2021-02-18] MEDS ORDERED: SUCCINYLCHOLINE CHLORIDE 100 MG/5 ML SYR IV ONE (11:37)
[2021-02-18] MEDS ORDERED: NEOSTIGMINE 1 MG/ML 10 ML VIAL ONE (11:37)
[2021-02-18] MEDS ORDERED: fentaNYL (PF) 50 MCG/ML 2 ML AMP ONE (11:37)
[2021-02-18] MEDS ORDERED: LIDOCAINE 1% INJ 10MG/ML (20 ML MDV) ONE (11:37)
[2021-02-18] MEDS ORDERED: HYDROmorphone (PF) 1 MG/ML ONE (11:37)
[2021-02-18] MEDS ORDERED: ROPIVACAINE 5 MG/ML 30 ML VIAL ONE (11:37)
[2021-02-18] MEDS ORDERED: GLYCOPYRROLATE 0.2 MG/ML 2 ML VIAL ONE (11:37)
[2021-02-18] MEDS ORDERED: PROPOFOL 10 MG/ML 20 ML VIAL IV ONE (11:37)
[2021-02-18] MEDS ORDERED: PHENYLEPHRINE-0.9% NACL SYG 1,000 MCG/10 ML SYRINGE ONE (11:37)
[2021-02-18] MEDS ORDERED: LACTATED RINGERS 1,000 ML IV ONE (11:57)
[2021-02-18] MEDS ORDERED: SODIUM CHLORIDE 0.9% 100 ML with ceFAZolin 2,000 MG IV ONE ×2 (11:58)
[2021-02-18] MEDS ORDERED: BUPIVACAINE (PF) 0.25% 30 ML VIAL SQ ONE (12:01)
[2021-02-18] MEDS ORDERED: ONDANSETRON 4 MG/2 ML VIAL IVP PRN (13:12)
[2021-02-18] MEDS ORDERED: METOCLOPRAMIDE 5 MG/ML 2 ML VIAL IVP PRN (13:12)
[2021-02-18] MEDS ORDERED: BENZOCAINE/MENTHOL LOZENG 1 EACH LOZENGE MUCOUS MEM PRN (13:12)
[2021-02-18] MEDS: HYDROmorphone 1 MG/ML 1 ML SYRINGE IVP ONE ×3 (13:20→13:44)
[2021-02-18] MEDS ORDERED: HYDROmorphone 0.5 MG/0.5 ML SYRINGE IVP ONE (13:34)
[2021-02-18] MEDS ORDERED: diphenhydrAMINE 50 MG/ML 1 ML VIAL IVP ONE (14:09)
--- NOTE | 2021-02-18 15:34 | P.ANPRN ---
Procedure Note - Anesthesia - Nerve Block Performed Bilateral Erector Spinae Time Out Performed: Yes (11:10) Date of Procedure: 02/18/21 Procedure Start Time: :10 Procedure Stop Time: :24 Location of Patient: PreOp Indication: Acute Post-Operative Pain, Requested by Surgeon (Dr Jean) Sedation Type: Sedate with meaningful contact maintained Preparation: Sterile Prep Position: Sitting Catheter: None Needle Types: Pajunk Needle Gauge: Other (see comment) (22g) Ultrasound used to visualize needle placement: Yes Ultrasound used to observe medication spread: Yes Injectate: 0.5% Ropivacaine (see comment for volume) (15cc + PF normal saline 10cc. each side) Blood Aspirated: No Pain Paresthesia on Injection Noted: No Resistance on Injection: Normal Image Stored and Saved: Yes Events: Uneventful and Well Tolerated
[2021-02-18] MEDS ORDERED: D5-0.45% NACL WITH KCL 20MEQ/L 1,000 ML IV SCH (16:30)
--- NOTE | 2021-02-18 16:45 | P.OP ---
Date of Procedure: 02/18/21 Preoperative Diagnosis: Incisional hernia Postoperative Diagnosis: Incisional hernia Right colon mass Procedure(s) Performed: Open repair of incisional hernia Lysis of adhesions Right colectomy Anesthesia: LUIS ANTONIO Surgeon: Chas Jean Estimated Blood Loss (ml): 25 Pathology: other (Right colon) Condition: stable Disposition: PACU Description of Procedure: The patient's placed the operative table in supine position. He received general anesthesia. His abdomen was prepped and draped usual fashion. The patient had a large midline scar which had an incisional hernia. The skin was divided midline. Then using electrocautery sharp dissection the hernia sac was dissected free from some taste tissues. The fascia was exposed by using left cautery. The hernia sac was opened and there were extensive adhesions small bowel was replaced with sharp dissection. In the right lower quadrant the cecum was palpated and there is a hard mass at the base of the cecum there were some inflammatory changes around the cecum. At this point decided to perform a right colectomy. The terminal ileum and mid right coronary transected using the GI stapler. Using insulin device the mesentery the bowel was divided. The specimens of pathology. A [id number] functional end-to-end staple anastomosis created using the SUYAPA and TA stapler. A 3-0 GI silk sutures using a crotch stitch. The abdomen was irrigated is no bleeding seen. The fascial defect was then closed using. #1 Ethibond suture. And then using #1 strep Suture the fascia was also closed. A ANDERSON drains placed over top of the fascial closure brought through separate stab incision. The Dana's fascia close [place]. Skin was closed morena. Patient top she will was sent to recovery room in stable condition.
[2021-02-18] MEDS: SODIUM CHLORIDE 0.9% 1,000 ML IV SCH (17:05)
[2021-02-18 18:20] LABS: Basophils % (A) 0 %; Eosinophils % (A) 0 %; HCT 42.8 % (39.0-53.0); HGB 13.3 gm/dL (13.0-17.5); Lymphocytes # (A) 0.4 k/uL (1.0-4.8); Lymphocytes % (A) 4 %; MCH 29.7 pg (25.0-35.0); MCHC 31.1 g/dL (31.0-37.0); MCV 95.4 fL (80.0-100.0); Mean Platelet Volume 7.7; Monocytes # (A) 0.4 k/uL (0-1.0); Monocytes % (A) 4 %; Neutrophils # (A) 9.5 k/uL (1.3-7.7); Neutrophils % (A) 92 %; Platelet Count 207 k/uL (150-450); RBC 4.49 m/uL (4.30-5.90); RDW 14.1 % (11.5-15.5); WBC 10.3 k/uL (3.8-10.6)
[2021-02-18 18:31] LABS: ALT 12 U/L (4-49); AST 20 U/L (17-59); African American GFR (CKD) >90 (>60 ml/min/1.73 sqM); Albumin 3.9 g/dL (3.5-5.0); Albumin/Globulin Ratio 1.5; Alkaline Phosphatase 68 U/L (38-126); Anion Gap 6 mmol/L; Blood Urea Nitrogen 12 mg/dL (9-20); Calcium 8.7 mg/dL (8.4-10.2); Carbon Dioxide 28 mmol/L (22-30); Chloride 100 mmol/L (98-107); Globulin 2.6 g/dL; Glucose 129 mg/dL (74-99); Non-African American GFR(CKD) >90 (>60 ml/min/1.73 sqM); Sodium 134 mmol/L (137-145); Total Bilirubin 0.6 mg/dL (0.2-1.3); Total Protein 6.5 g/dL (6.3-8.2)
[2021-02-18] MEDS ORDERED: IPRATROPIUM-ALBUTEROL 3 ML NEB INHALATION PRN (19:08)
--- NOTE | 2021-02-18 19:14 | XR ---
EXAMINATION TYPE: XR chest 1V portable DATE OF EXAM: 02/18/2021 CLINICAL HISTORY: CHF. Abnormal breathing since abdominal surgery. TECHNIQUE: Portable frontal view of the chest. COMPARISON: 06/16/2020 FINDINGS: Redemonstrated elevation of the right hemidiaphragm. The cardiomediastinal silhouette is w ithin normal limits for size. Pulmonary vasculature is normal. There is minimal patchiness of the rig ht infrahilar lung. No pleural effusion. No pneumothorax seen. No acute displaced osseous fracture. There is a tiny amount of pneumoperitoneum under the right hemidiaphragm. IMPRESSION: 1. Minimal right infrahilar patchiness. Findings may represent developing pneumonia versus atelectasi s. 2. Tiny pneumoperitoneum under the right hemidiaphragm. Findings are likely within expected limits st atus post recent abdominal surgery.
[2021-02-18] MEDS: KETOROLAC 15 MG/ML 1 ML VIAL IVP PRN (19:20)
[2021-02-18] MEDS: IPRATROPIUM-ALBUTEROL 3 ML NEB INHALATION SCH (19:56)
[2021-02-18] MEDS: METOPROLOL TARTRATE 12.5 MG TAB PO SCH ×2 (21:17→21:36)
[2021-02-18] MEDS: ALVIMOPAN 12 MG CAPSULE PO SCH (21:17)
[2021-02-18] MEDS: FAMOTIDINE 20 MG/2 ML VIAL IV SCH (21:17)
[2021-02-18] MEDS: HEPARIN SODIUM,PORCINE/PF 5,000 UNIT/0.5 ML SYRINGE SQ SCH (21:17)
--- NOTE | 2021-02-18 21:20 | CONS ---
CONSULTATION DATE OF SERVICE: 02/18/2021. REASON FOR CONSULT: Advice regarding tachycardia and shortness of breath, requested by Dr. Jean. HISTORY OF PRESENT ILLNESS: This 71-year-old gentleman with a past medical history of hearing disorder, deafness, history of bowel resection, history of hernia surgery, history of history of colon cancer apparently, history of tachycardia, being followed by a primary physician in the outpatient setting, underwent an incisional hernia repair by Dr. Jean. Postoperatively, the patient had some shortness of breath and tachycardia. The patient is monitored closely at this time. The patient is able to communicate with writing at this time. There is no history of fever, rigors. No history of headache, loss of consciousness, seizures at this time. The heart rate is 118, appears to be regular and pulse ox 94% on 3 L. There is no history of fever, rigors. No history of headache, loss of consciousness. No chest pain, palpitations at this time. PAST MEDICAL HISTORY: History of hearing defect, history of colon cancer, history of bowel resection, hernia repair. MEDICATIONS: Medications prior to admission, home medications are: Vitamin D2 and Colace. ALLERGIES: None. Family history, social history and review of systems could not be taken because of the above mentioned reason. PHYSICAL EXAM: Patient is conscious, alert, short of breath at rest. Pulse is 180 and regular. Blood pressure 150/78, respirations 16, temperature is normal. Pulse ox 94% on 3 L. HEENT: Conjunctivae normal. NECK is jugular venous distention in the root of the neck. CARDIOVASCULAR system: S1, S2 tachycardic. Normal. No thrills. RESPIRATORY: Breath sounds diminished in the bases. A few scattered rhonchi. No crackles. ABDOMEN: Soft. Status post surgery. LEGS: No edema. No swelling. NERVOUS SYSTEM: Higher functions as mentioned earlier. Moves all 4 limbs. No focal motor or sensory deficits. LYMPHATICS: No lymph nodes palpable in the neck, axilla or groin. SKIN: No ulcer, no rash and no bleeding. JOINTS: No active deforming arthropathy. LABS: The previous labs noted. Sodium is 136. ASSESSMENT: 1. Status post incisional hernia repair. 2. Postoperative tachycardia. 3. Shortness of breath for evaluation. 4. Hypertension. 5. Hard of hearing. 6. History of bowel resection. 7. History of colostomy reversal. 8. History of colon cancer. 9. History of mild protein calorie malnutrition with body mass index of 19.1. 10.History of hyponatremia. 11.FULL CODE. RECOMMENDATIONS AND DISCUSSION: This 71-year-old gentleman who presented with multiple complex medical issues, we will monitor the patient closely, continue the current medications, management and symptomatic treatment. Continue IV fluids at 0.98 75 mL/hour. I would also recommend baseline chest x-ray, EKG and basic labs including troponin also. We will follow the patient closely with DVT prophylaxis. Incentive spirometry. Proton pump inhibitors. Follow the patient closely. Thank you Dr. Jean for letting us participate in the care of this patient. The patient will be asked to follow up with primary physician closely after discharge. ESMEL / CYNDIN: [id number] /
[2021-02-19] MEDS: KETOROLAC 15 MG/ML 1 ML VIAL IVP PRN ×2 (03:14→10:34)
[2021-02-19] MEDS: HYDROmorphone 1 MG/ML 1 ML SYRINGE IVP PRN ×3 (05:03→23:38)
[2021-02-19] MEDS: HEPARIN SODIUM,PORCINE/PF 5,000 UNIT/0.5 ML SYRINGE SQ SCH ×3 (06:11→20:37)
[2021-02-19] MEDS: SODIUM CHLORIDE 0.9% 1,000 ML IV SCH ×2 (06:12→19:30)
[2021-02-19] MEDS: LACTATED RINGERS 1,000 ML IV SCH (06:13)
[2021-02-19] MEDS ORDERED: fentaNYL (PF) 50 MCG/ML 2 ML AMP IVP PRN (07:00)
[2021-02-19] MEDS: IPRATROPIUM-ALBUTEROL 3 ML NEB INHALATION SCH ×3 (10:01→21:48)
[2021-02-19] MEDS: METOPROLOL TARTRATE 12.5 MG TAB PO SCH ×2 (10:16→20:36)
[2021-02-19] MEDS: ACETAMINOPHEN TAB 325 MG TAB PO PRN (10:17)
[2021-02-19] MEDS: ALVIMOPAN 12 MG CAPSULE PO SCH ×2 (10:20→20:36)
[2021-02-19] MEDS: FAMOTIDINE 20 MG/2 ML VIAL IV SCH ×2 (10:34→20:37)
--- NOTE | 2021-02-19 14:59 | P.PN ---
Subjective Progress Note Date: 02/19/21 CHIEF COMPLAINT: Incisional hernia and right colon mass HISTORY OF PRESENT ILLNESS: Patient is status post open repair of incisional hernia with lysis of adhesions and right colectomy. Patient's pain is c ontrolled. He was complaining of a headache this morning. He did get a nerve block by anesthesia. Denies any nausea or vomiting. Denies any bowel activity. Chest x-ray had shown atelectasis versus pneumonia and tiny pneumoperitoneum under the right hemidiaphragm. Findings are likely within expected limits status post recent abdominal surgery. Afebrile. Vital stable. Labs: WBC 10.3 PHYSICAL EXAM: VITAL SIGNS: Reviewed. GENERAL: Well-developed in no acute distress. HEENT: No sclera icterus. Extraocular movements grossly intact. Moist buccal mucosa. Head is atraumatic, normocephalic. ABDOMEN: Soft. Nondistended. Incisional dressing clean dry and intact . ANDERSON drain serosanguineous 100 mL NEUROLOGIC: Alert and oriented. Cranial nerves II through XII grossly intact. ASSESSMENT: 1. Incisional hernia and right colon mass status post open repair of incisional hernia with lysis of adhesions and right colectomy. Postop day #1 PLAN: -Continue clear liquid diet -Continue pain medication as needed -Continue IV fluids -Encourage patient to use incentive spirometer -Encourage patient to increase activity -GI prophylaxis Pepcid and DVT prophylaxis subcu heparin Physician Letterpress Printing Machinist note has been reviewed by physician. Signing provider agrees with the documented findings, assessment, and plan of care. Objective - Vital Signs Vital signs: Vital Signs Temp 98.1 F 02/19/21 13:30 Pulse 91 02/19/21 13:30 Resp 19 02/19/21 13:30 BP 103/68 02/19/21 13:30 Pulse Ox 98 02/19/21 13:30 Intake & Output 02/18/21 02/19/21 02/19/21 18:59 06:59 18:59 Intake Total 2650 0 Output Total 50 100 100 Balance 2600 -100 -100 Weight 64 kg Intake: IV 2500 Intake, IV Titration 150 Amount Sodium Chloride 0.9% 1, 150 000 ml @ 75 mls/hr IV . [id number] [facility] Rx#:[id number] Oral 0 Output: Drainage 100 100 Abdomen 100 100 Estimated Blood Loss 50 Other: Voiding Method Urinal # Voids 2 # Bowel Movements 0 - Labs CBC & Chem 7: 02/18/21 17:14 02/18/21 17:14 Labs: Abnormal Lab Results - Last 24 Hours (Table) 02/18/21 02/18/21 Range/Units 17:14 17:14 Neutrophils # 9.5 H (1.3-7.7) k/uL Lymphocytes # 0.4 L (1.0-4.8) k/uL Sodium 134 L (137-145) mmol/L Creatinine 0.64 L (0.66-1.25) mg/dL Glucose 129 H (74-99) mg/dL
--- NOTE | 2021-02-19 16:00 | PN ---
PROGRESS NOTE DATE OF SERVICE: 02/19/2021 This 71-year-old gentleman who was admitted after incisional hernia repair is improving significantly. No chest pain. No palpitations. No fever. Patient has some mild postoperative tachycardia. PHYSICAL EXAMINATION: Alert and oriented x3. Pulse is 92, blood pressure 103/60, respiration 19, temperature 98.2, pulse ox 98% on 3 L. HEENT: Conjunctivae normal. NECK: No jugular venous distention. CARDIOVASCULAR SYSTEM: S1, S2 muffled. RESPIRATORY SYSTEM: Breath sounds diminished at the bases. No rhonchi. No crackles. ABDOMEN: Soft. Status post surgery. NERVOUS SYSTEM: No focal deficit. LABS: Sodium 134. ASSESSMENT: 1. Status post incisional hernia repair. 2. Postoperative tachycardia, improved. 3. Shortness of breath, improved, possibly chronic bronchitis, chronic obstructive pulmonary disease. 4. Hypertension. 5. Hard of hearing. 6. History of bowel resection. 7. Hyponatremia, mild. 8. History of colostomy reversal. 9. History of colon cancer. 10.Mild protein-calorie malnutrition with body mass index 19.1. 11.FULL CODE. RECOMMENDATIONS AND DISCUSSION: I recommend to continue current medications, continue with the monitoring, symptomatic treatment. Continue with DVT prophylaxis and incentive spirometry, bronchodilators. Further recommendations to follow. MMODL / IJN: [id number] /
[2021-02-19] MEDS: MELATONIN 3 MG TABLET PO PRN (20:44)
[2021-02-20] MEDS: HEPARIN SODIUM,PORCINE/PF 5,000 UNIT/0.5 ML SYRINGE SQ SCH ×3 (04:08→20:15)
[2021-02-20] MEDS: LACTATED RINGERS 1,000 ML IV SCH (05:10)
[2021-02-20] MEDS: METOPROLOL TARTRATE 12.5 MG TAB PO SCH ×2 (07:54→20:16)
[2021-02-20] MEDS: ALVIMOPAN 12 MG CAPSULE PO SCH ×2 (07:54→20:15)
[2021-02-20] MEDS: FAMOTIDINE 20 MG/2 ML VIAL IV SCH ×2 (07:54→20:15)
[2021-02-20] MEDS: KETOROLAC 15 MG/ML 1 ML VIAL IVP PRN (07:55)
[2021-02-20 08:47] LABS: Basophils % (A) 0 %; Eosinophils # (A) 0.1 k/uL (0-0.7); Eosinophils % (A) 1 %; HCT 35.5 % (39.0-53.0); HGB 11.3 gm/dL (13.0-17.5); Lymphocytes # (A) 0.7 k/uL (1.0-4.8); Lymphocytes % (A) 14 %; MCHC 31.9 g/dL (31.0-37.0); MCV 93.9 fL (80.0-100.0); Mean Platelet Volume 7.4; Monocytes # (A) 0.2 k/uL (0-1.0); Monocytes % (A) 4 %; Neutrophils # (A) 3.9 k/uL (1.3-7.7); Neutrophils % (A) 79 %; Platelet Count 157 k/uL (150-450); RBC 3.77 m/uL (4.30-5.90); WBC 4.9 k/uL (3.8-10.6)
[2021-02-20 08:50] LABS: African American GFR (CKD) >90 (>60 ml/min/1.73 sqM); Anion Gap 4 mmol/L; Blood Urea Nitrogen 12 mg/dL (9-20); Calcium 7.8 mg/dL (8.4-10.2); Carbon Dioxide 28 mmol/L (22-30); Chloride 100 mmol/L (98-107); Glucose 103 mg/dL (74-99); Non-African American GFR(CKD) >90 (>60 ml/min/1.73 sqM); Potassium 4.2 mmol/L (3.5-5.1); Sodium 132 mmol/L (137-145)
[2021-02-20] MEDS: IPRATROPIUM-ALBUTEROL 3 ML NEB INHALATION SCH ×3 (08:51→19:50)
[2021-02-20] MEDS: HYDROmorphone 1 MG/ML 1 ML SYRINGE IVP PRN ×2 (10:56→20:16)
[2021-02-20] MEDS: SODIUM CHLORIDE 0.9% 1,000 ML IV SCH (10:57)
--- NOTE | 2021-02-20 13:17 | P.PN ---
Subjective Progress Note Date: 02/20/21 CHIEF COMPLAINT: Incisional hernia and right colon mass HISTORY OF PRESENT ILLNESS: Patient is status post open repair of incisional hernia with lysis of adhesions and right colectomy. Patient is complaining of right-sided abdominal pain. It is controlled with pain medication. Denies any nausea or vomiting. Denies any bowel activity. Patient tolerating clear liquids. ANDERSON drain 20 mL sanguinous output this morning. Afebrile. Vital stable. Labs: WBC 4.9 hemoglobin 11.3 PHYSICAL EXAM: VITAL SIGNS: Reviewed. GENERAL: Well-developed in no acute distress. HEENT: No sclera icterus. Extraocular movements grossly intact. Moist buccal mucosa. Head is atraumatic, normocephalic. ABDOMEN: Soft. Nondistended. Mild tenderness on the right side of incision Incisional dressing clean dry and intact . ANDERSON drain sanguinous NEUROLOGIC: Alert and oriented. Cranial nerves II through XII grossly intact. ASSESSMENT: 1. Incisional hernia and right colon mass status post open repair of incisional hernia with lysis of adhesions and right colectomy. Postop day #2 PLAN: -Continue clear liquid diet -Continue pain medication as needed -Continue IV fluids -Encourage patient to use incentive spirometer -Encourage patient to increase activity -GI prophylaxis Pepcid and DVT prophylaxis subcu heparin -Consult PT OT Physician Hearing Aid Repair Technician note has been reviewed by physician. Signing provider agrees with the documented findings, assessment, and plan of care. Objective - Vital Signs Vital signs: Vital Signs Temp 98.0 F 02/20/21 07:19 Pulse 90 02/20/21 12:05 Resp 16 02/20/21 12:05 BP 138/82 02/20/21 07:19 Pulse Ox 95 02/20/21 07:19 Intake & Output 02/19/21 02/20/21 02/20/21 18:59 06:59 18:59 Intake Total 1260 Output Total 100 100 345 Balance -100 1160 -345 Intake: Intake, IV Titration 900 Amount Sodium Chloride 0.9% 1, 900 000 ml @ 75 mls/hr IV . [id number] [facility] Rx#:[id number] Oral 360 Output: Drainage 100 100 20 Abdomen 100 100 20 Urine 325 Other: Voiding Method Urinal Urinal # Voids 2 1 1 - Labs CBC & Chem 7: 02/20/21 08:17 02/20/21 08:17 Labs: Abnormal Lab Results - Last 24 Hours (Table) 02/20/21 02/20/21 Range/Units 08:17 08:17 RBC 3.77 L (4.30-5.90) m/uL Hgb 11.3 L (13.0-17.5) gm/dL Hct 35.5 L (39.0-53.0) % Lymphocytes # 0.7 L (1.0-4.8) k/uL Sodium 132 L (137-145) mmol/L Creatinine 0.55 L (0.66-1.25) mg/dL Glucose 103 H (74-99) mg/dL Calcium 7.8 L (8.4-10.2) mg/dL
--- NOTE | 2021-02-20 16:16 | PN ---
PROGRESS NOTE DATE OF SERVICE: 02/20/2021 This 71-year-old gentleman who was admitted after incisional hernia repair also had some postoperative tachycardia. The patient is improving significantly. No chest pain. No palpitations. No fever. PHYSICAL EXAMINATION: Alert and oriented x3. Pulse 96, blood pressure 138/80, respiration 19, temperature 98 degrees, pulse ox 94% on 3 L. HEENT: Conjunctivae normal. NECK: No jugular venous distention. CARDIOVASCULAR SYSTEM: S1, S2 muffled. RESPIRATORY SYSTEM: Breath sounds diminished at the bases. No rhonchi. No crackles. ABDOMEN: Soft. Status post surgery. LEGS: No edema. No swelling. NERVOUS SYSTEM: No focal deficit. LABS: Sodium 133, hemoglobin 11.3. ASSESSMENT: 1. Status post incisional hernia repair. 2. Postoperative tachycardia, improved. 3. Shortness of breath, improved, possibly chronic bronchitis or chronic obstructive pulmonary disease. 4. Hypertension. 5. Hard of hearing. 6. History of bowel resection. 7. Hyponatremia, mild. 8. History of colostomy reversal. 9. History of colon cancer. 10.Mild protein-calorie malnutrition with body mass index 19.1. 11.FULL CODE. RECOMMENDATIONS AND DISCUSSION: I recommend to continue current medications, continue with the monitoring, symptomatic treatment. Repeat labs in the outpatient setting. Closely follow with primary physician after discharge. MMODL / IJN: [id number] /
[2021-02-20] MEDS: MELATONIN 3 MG TABLET PO PRN (20:16)
[2021-02-21] MEDS: SODIUM CHLORIDE 0.9% 1,000 ML IV SCH ×2 (00:37→15:06)
[2021-02-21] MEDS: LACTATED RINGERS 1,000 ML IV SCH (04:23)
[2021-02-21] MEDS: HEPARIN SODIUM,PORCINE/PF 5,000 UNIT/0.5 ML SYRINGE SQ SCH ×3 (04:23→22:34)
[2021-02-21] MEDS: ALVIMOPAN 12 MG CAPSULE PO SCH ×2 (08:21→22:33)
[2021-02-21] MEDS: METOPROLOL TARTRATE 12.5 MG TAB PO SCH ×2 (08:21→22:33)
[2021-02-21] MEDS: FAMOTIDINE 20 MG/2 ML VIAL IV SCH ×2 (08:21→22:34)
[2021-02-21] MEDS: IPRATROPIUM-ALBUTEROL 3 ML NEB INHALATION SCH ×3 (08:57→21:36)
[2021-02-21] MEDS: HYDROmorphone 1 MG/ML 1 ML SYRINGE IVP PRN (11:32)
--- NOTE | 2021-02-21 13:11 | P.PN ---
Progress Note - Text Progress Note Date: 02/21/21 The patient is doing well. He has no complaints except for some mild incisional pain. On exam vital signs are stable. Abdomen soft. Incision is clean dry tach. Status post repair of incisional hernia and right colectomy. Pathology is still pending. Patient will have his diet slowly advanced.
[2021-02-21] MEDS: ACETAMINOPHEN TAB 325 MG TAB PO PRN (15:06)
--- NOTE | 2021-02-21 16:42 | PN ---
PROGRESS NOTE DATE OF SERVICE: 02/21/2021 This 71-year-old gentleman who was admitted after incisional hernia repair is improving significantly. No chest pain. No palpitations. No fever. EXAM: Alert and oriented times three. Pulse 99, blood pressure 140/83, respiration 12. Temperature 98 degrees, pulse ox 98% on 3 L. HEENT: Conjunctivae normal. NECK:No JVD. CARDIOVASCULAR: S1, S2 muffled. RESPIRATION: Breath sounds diminished in the bases. No rhonchi. No crackles. ABDOMEN: Soft. Status post surgery. LEGS: No edema. No swelling. NERVOUS SYSTEM: No focal deficits. LABS: Hemoglobin 11.3. Sodium is 132. ASSESSMENT: 1. Status post incisional hernia repair. 2. Postoperative bradycardia, improved. 3. Shortness of breath, improved, possibly chronic bronchitis or chronic obstructive pulmonary disease. 4. Hypertension. 5. Hard of hearing. 6. History of bowel resection. 7. Hyponatremia, mild. 8. History of colostomy reversal. 9. History of colon cancer. 10.Mild protein calorie malnutrition with body mass index 19.1. 11.FULL CODE. RECOMMENDATIONS AND DISCUSSION: I recommend to continue current medications, management and symptomatic treatment. I would closely follow. Incentive spirometry. DVT prophylaxis. Closely follow with surgery. Further recommendations to follow. MMODL / IJN: [id number] /
[2021-02-22] MEDS: SODIUM CHLORIDE 0.9% 1,000 ML IV SCH ×2 (04:15→16:31)
[2021-02-22] MEDS: HEPARIN SODIUM,PORCINE/PF 5,000 UNIT/0.5 ML SYRINGE SQ SCH ×3 (04:16→20:01)
[2021-02-22] MEDS: IPRATROPIUM-ALBUTEROL 3 ML NEB INHALATION SCH ×3 (07:48→20:01)
[2021-02-22] MEDS: METOPROLOL TARTRATE 12.5 MG TAB PO SCH ×2 (08:48→20:01)
[2021-02-22] MEDS: FAMOTIDINE 20 MG/2 ML VIAL IV SCH ×2 (08:48→20:01)
[2021-02-22] MEDS: ALVIMOPAN 12 MG CAPSULE PO SCH ×2 (08:48→20:01)
--- NOTE | 2021-02-22 15:27 | P.PN ---
Progress Note - Text Progress Note Date: 02/22/21 Patient been stable. He still has some complaints of incisional pain. On exam vital signs are stable. Abdomen soft. Incision is clean dry tach. Status post right colectomy and repair of incisional hernia. Patient did have supportive care.
--- NOTE | 2021-02-22 17:41 | PN ---
PROGRESS NOTE DATE OF SERVICE: 02/22/2021 This 71-year-old gentleman admitted after incisional hernia repair is improving significantly. No chest pain. No palpitations. No fever. PHYSICAL EXAMINATION: Alert and oriented times three. Pulse 88, blood pressure 150/81, respiration 16, temperature 97.6, pulse ox 97% on 2 L. HEENT: Conjunctivae normal. NECK: No JVD. CARDIOVASCULAR: S1, S2 muffled. RESPIRATORY SYSTEM: Breath sounds diminished at the bases. No rhonchi. ABDOMEN: Soft. Status post surgery. LEGS are no edema. No swelling. NERVOUS SYSTEM: No focal deficits. LABS: Hemoglobin 11.3. Sodium 132. ASSESSMENT: 1. Status post incisional hernia repair. 2. Postoperative bradycardia, improved. 3. Shortness of breath, improved, possibly chronic obstructive pulmonary disease or chronic bronchitis. 4. Hypertension. 5. Hard of hearing. 6. Hyponatremia mild. 7. History of bowel resection. 8. History of colostomy reversal. 9. History of colon cancer. 10.Mild protein calorie malnutrition with body mass index of 19.1. 11.FULL CODE. RECOMMENDATIONS AND DISCUSSION: Recommend to continue current medications, symptomatic treatment. Otherwise, continue the bronchodilators and incentive spirometry. DVT prophylaxis. Further recommendations to follow. MMODL / IJN: [id number] /
[2021-02-22] MEDS: HYDROmorphone 1 MG/ML 1 ML SYRINGE IVP PRN (20:02)
[2021-02-23] MEDS: SODIUM CHLORIDE 0.9% 1,000 ML IV SCH ×2 (04:59→20:51)
[2021-02-23] MEDS: HEPARIN SODIUM,PORCINE/PF 5,000 UNIT/0.5 ML SYRINGE SQ SCH ×3 (04:59→20:51)
[2021-02-23] MEDS: FAMOTIDINE 20 MG/2 ML VIAL IV SCH ×2 (07:14→20:50)
[2021-02-23] MEDS: ALVIMOPAN 12 MG CAPSULE PO SCH ×2 (07:15→20:50)
[2021-02-23] MEDS: HYDROmorphone 1 MG/ML 1 ML SYRINGE IVP PRN (07:15)
[2021-02-23] MEDS: METOPROLOL TARTRATE 12.5 MG TAB PO SCH ×2 (07:15→20:50)
[2021-02-23] MEDS: IPRATROPIUM-ALBUTEROL 3 ML NEB INHALATION SCH ×3 (07:42→19:52)
[2021-02-23] MEDS ORDERED: HYDROcodone/APAP 5-325MG 1 EACH TAB PO PRN (09:50)
[2021-02-23 10:11] LABS: Basophils % (A) 0 %; Eosinophils # (A) 0.1 k/uL (0-0.7); Eosinophils % (A) 4 %; HGB 11.4 gm/dL (13.0-17.5); Lymphocytes # (A) 0.6 k/uL (1.0-4.8); Lymphocytes % (A) 17 %; MCH 32.5 pg (25.0-35.0); MCHC 35.6 g/dL (31.0-37.0); MCV 91.3 fL (80.0-100.0); Mean Platelet Volume 7.3; Monocytes # (A) 0.3 k/uL (0-1.0); Monocytes % (A) 9 %; Neutrophils # (A) 2.4 k/uL (1.3-7.7); Neutrophils % (A) 68 %; Platelet Count 170 k/uL (150-450); RDW 13.3 % (11.5-15.5); WBC 3.6 k/uL (3.8-10.6)
[2021-02-23 10:26] LABS: African American GFR (CKD) >90 (>60 ml/min/1.73 sqM); Anion Gap 1 mmol/L; Blood Urea Nitrogen 4 mg/dL (9-20); Calcium 8.1 mg/dL (8.4-10.2); Carbon Dioxide 31 mmol/L (22-30); Chloride 99 mmol/L (98-107); Glucose 125 mg/dL (74-99); Non-African American GFR(CKD) >90 (>60 ml/min/1.73 sqM); Potassium 3.2 mmol/L (3.5-5.1); Sodium 131 mmol/L (137-145)
[2021-02-23] MEDS ORDERED: Potassium Replacement Protocol 1 EACH MISC MISCELLANE PRN (11:39)
[2021-02-23] MEDS: POTASSIUM CHLORIDE ER 20 MEQ TAB.ER PO SCH ×5 (11:56→20:50)
--- NOTE | 2021-02-23 13:22 | P.DS ---
Providers Date of admission: 02/18/21 13:07 Expected date of discharge: 02/23/21 Attending physician: Chas Jean Consults: 02/18/21 13:12 Consult Physician Routine Consulting Provider: Manny Robins Consult Reason/Comments: Medical management Do you want consulting provider notified?: Yes [facility] Course: Discharge diagnosis 1. Incisional hernia and right colon mass status post open repair of incisional hernia with lysis of adhesions and right colectomy. 2. Hypokalemia Hospital course This is a 71-year-old male who had an incisional hernia. Patient is status post incisional hernia repair and lysis of adhesions with right colectomy for a right colon mass. Patient is lying in bed comfortably. His pain is controlled. He is tolerating diet. He is afebrile. He is having bowel movements. He is ambulating. Potassium of 3.2 replaced prior to discharge. Patient seen by physical therapy they are recommending ECF placement for further rehabilitation at time of discharge. Patient is stable for discharge. Please refer to chart for any further details. Physician Hospitality Job Titles note has been reviewed by physician. Signing provider agrees with the documented findings, assessment, and plan of care. Patient Condition at Discharge: Stable Plan - Discharge Summary New Discharge Prescriptions: New HYDROcodone/APAP 5-325MG [[place] 5-325] 1 tab PO Q6HR PRN 3 Days #12 tab PRN Reason: Pain Continue Ergocalciferol (Vitamin D2) [Vitamin D2 (50,000 Iu)] 1,250 mcg PO Q7D Docusate [Colace] 100 mg PO HS PRN PRN Reason: Constipation Discharge Medication List Docusate [Colace] 100 mg PO HS PRN 02/11/21 [History] Ergocalciferol (Vitamin D2) [Vitamin D2 (50,000 Iu)] 1,250 mcg PO Q7D 02/11/21 [History] HYDROcodone/APAP 5-325MG [[place] 5-325] 1 tab PO Q6HR PRN 3 Days #12 tab 02/23/21 [Rx] Follow up Appointment(s)/Referral(s): Chas Jean MD [STAFF PHYSICIAN] - 02/26/21 1:30 pm Activity/Diet/Wound Care/Special Instructions: Medicine service to complete discharge med rec No driving while taking [place] No lifting over 10 pounds You may shower. No soaking or tub baths for 2 weeks Very light activity until you are reevaluated at your follow up appointment with your surgeon Repeat labs CBC and BMP in 1 week Discharge Disposition: TRANSFER TO SNF/ECF
--- NOTE | 2021-02-23 15:06 | PN ---
PROGRESS NOTE DATE OF SERVICE: 02/23/2021 This 71-year-old gentleman who was admitted after incisional hernia repair, is improving significantly. No chest pain. No palpitations. No fever. PHYSICAL EXAMINATION: Alert and oriented times three. Pulse 106. Blood pressure 158/82, respirations 19, temperature 97.4, pulse ox 93% on room air. HEENT: Conjunctivae normal. NECK: No JVD. CARDIOVASCULAR: S1, S2 muffled. RESPIRATION: Breath sounds diminished in the bases. No rhonchi. No crackles. ABDOMEN: Soft, status post surgery. LEGS: No edema. No swelling. NERVOUS SYSTEM: No focal deficits. LAB: WBC 3.7, hemoglobin 11.2, sodium 130, potassium 3.2. ASSESSMENT: 1. Status post incisional hernia repair. 2. Possible tachycardia, improved. 3. Hypokalemia, improved. 4. Shortness of breath, improved, possible chronic obstructive pulmonary disease or chronic bronchitis. 5. Hypertension. 6. Hard of hearing. 7. Hyponatremia, mild. 8. History of bowel resection. 9. History of colostomy reversal. 10.History of colon cancer. 11.Mild protein calorie malnutrition with body mass index of 19.1. 12.FULL CODE. RECOMMENDATIONS AND DISCUSSION: Recommend to continue current medications, management and symptomatic treatment. Repeat lytes. See orders for details. Continue with nebulizers and beta blockers. MMODL / IJN: [id number] /
--- NOTE | 2021-02-23 15:08 | CDI ---
Documentation Clarification Form Date: 02/23/2021 03:02:00 PM From: Elisabet Shah CCS, CCDS Admit Date: 02/18/2021 01:07:00 PM Patient Name: Pranav Ochoa Visit Number: [id number] Discharge Date: ATTENTION: The Clinical Documentation Specialists (CDI) and [facility] Coding Staff appreciate your assistance in clarifying documentation. Please respond to the clarification below the line at the bottom and electronically sign. The CDI & [facility] Coding staff will review the response and follow-up if needed. Please note: Queries are made part of the Legal Health Record. If you have any questions, please contact the author of this message via ITS. Dr. 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 Surgical margins negative for malignancy. Low grade dysplasia/tubular adenoma at the distal mucosal margin. One of eleven mesenteric lymph nodes positive for metastasis. Coding guidelines do not allow coding professionals to code based on pathology results; therefore, clarification is requested. History/risk factors per the Surgery History & Physical Past Medical History: Colon Cancer status post Colostomy and reversal, Previous Inguinal hernia repairs. Hard of Hearing. Former smoker. Clinical Indicators: Presented for elective Open repair of Incisional hernia, Lysis of Adhesions and Right Colectomy. Treatment starting 02/18: Surgery as above, IV Cefazolin, Heparin sq, IV Decadron, IV Zofran, IV Lactated Ringers, IV Toradol, IV Flagyl, IV Dilaudid. Please clarify if you agree with the pathology report diagnosis of Adenocarcinoma as described above: [ ] Yes [ ] No [ ] Other (please specify) [ ] Unable to determine (Template Last Revised: December 2020) agree MTDD
[2021-02-23] MEDS ORDERED: POTASSIUM CHLORIDE 10 MEQ in WATER FOR INJECTION 1 100ML.BAG IVPB STA (15:51)
[2021-02-23] MEDS ORDERED: POTASSIUM CHLORIDE ER 20 MEQ TAB.ER PO SCH (16:00)
[2021-02-23] MEDS ORDERED: Magnesium Replacement Protocol 1 EACH MISC MISCELLANE PRN (16:55)
[2021-02-23] MEDS: MAGNESIUM SULFATE-D5W PMX 1 GM in DEXTROSE/WATER 1 100ML.BAG IVPB SCH ×2 (18:02→20:49)
[2021-02-24] MEDS: HEPARIN SODIUM,PORCINE/PF 5,000 UNIT/0.5 ML SYRINGE SQ SCH ×2 (06:03→13:26)
[2021-02-24 07:24] LABS: Basophils % (A) 1 %; Eosinophils # (A) 0.1 k/uL (0-0.7); Eosinophils % (A) 4 %; HCT 35.8 % (39.0-53.0); HGB 11.7 gm/dL (13.0-17.5); Lymphocytes # (A) 0.8 k/uL (1.0-4.8); Lymphocytes % (A) 21 %; MCH 30.1 pg (25.0-35.0); MCHC 32.8 g/dL (31.0-37.0); MCV 91.8 fL (80.0-100.0); Mean Platelet Volume 7.1; Monocytes # (A) 0.3 k/uL (0-1.0); Monocytes % (A) 8 %; Neutrophils # (A) 2.3 k/uL (1.3-7.7); Neutrophils % (A) 63 %; Platelet Count 219 k/uL (150-450); RDW 14.1 % (11.5-15.5); WBC 3.6 k/uL (3.8-10.6)
[2021-02-24] MEDS: IPRATROPIUM-ALBUTEROL 3 ML NEB INHALATION SCH ×2 (07:36→11:08)
[2021-02-24] MEDS: ACETAMINOPHEN TAB 325 MG TAB PO PRN (08:03)
[2021-02-24] MEDS: METOPROLOL TARTRATE 12.5 MG TAB PO SCH (08:04)
[2021-02-24] MEDS: ALVIMOPAN 12 MG CAPSULE PO SCH (08:04)
[2021-02-24] MEDS: FAMOTIDINE 20 MG/2 ML VIAL IV SCH (08:05)
[2021-02-24 12:01] VITALS: BP 129/79; PULSE 74; RESP 17; TEMP 98
[2021-02-24 12:44] LABS: African American GFR (CKD) 126.4 (60.0-200.0); Blood Urea Nitrogen <5.0 mg/dL (9.0-27.0); Calcium 8.2 mg/dL (8.7-10.3); Carbon Dioxide 26.6 mmol/L (21.6-31.8); Chloride 104 mmol/L (96-109); Glucose 89 mg/dL (70-110); Potassium 5.1 mmol/L (3.5-5.5); Sodium 136 mmol/L (135-145)
--- NOTE | 2021-02-24 16:12 | PN ---
PROGRESS NOTE DATE OF SERVICE: 02/24/2021 This 71-year-old gentleman admitted with incisional hernia is being closely monitored. Did show hypokalemia yesterday. Discharge was held. The patient was given potassium supplementation. Potassium today is 5.1, which is improved. PAST MEDICAL HISTORY: Reviewed. PHYSICAL EXAMINATION: Patient is alert and oriented x3. Pulse 74, blood pressure 129/79, respiration 17, temperature 98 degrees, pulse ox 93% on room air. HEENT: Conjunctivae normal. NECK: No jugular venous distention. CARDIOVASCULAR: S1, S2 muffled. RESPIRATORY: Breath sounds diminished at the bases. No rhonchi, no crackles. ABDOMEN: Soft, status post surgery. LEGS: No edema, no swelling. NERVOUS SYSTEM: No focal deficits. LABS: WBC 3.6, hemoglobin 11.7, potassium 5.1. ASSESSMENT: 1. Status post incisional hernia repair. 2. Postoperative tachycardia, improved. 3. Severe hypokalemia, improved. 4. Shortness of breath, improved, possible chronic obstructive pulmonary disease or chronic bronchitis. 5. Hypertension. 6. Hard of hearing. 7. Hyponatremia, mild. 8. History of bowel resection. 9. History of colostomy reversal. 10.History of colon cancer. 11.Mild protein calorie malnutrition with body mass index of 19.1. 12.FULL CODE. RECOMMENDATIONS AND DISCUSSION: Recommend to continue current medications, continue symptomatic treatment. continue with the rest of medications. Closely follow with primary physician in the outpatient setting. The rest of the recommendations per Surgery. Further recommendations to follow. MMODL / IJN: [id number] /
[2021-02-24] MEDS ORDERED: FAMOTIDINE 20 MG TAB PO SCH (21:00)
--- NOTE | 2021-03-23 07:38 | CDI ---
Documentation Clarification Form Date: 03/23/2021 07:33:00 AM From: Eve Lam Phone: If you have a question about this query, please contact Lisette Mccray, Wine Master at [phone] between 8am and 5pm. Admit Date: 02/18/2021 01:07:00 PM Patient Name: Pranav Ochoa Visit Number: [id number] Discharge Date: 02/24/2021 04:40:00 PM ATTENTION: The Clinical Documentation Specialists (CDI) and [facility] Coding Staff appreciate your assistance in clarifying documentation. Please respond to the clarification below the line at the bottom and electronically sign. The CDI & [facility] Coding staff will review the response and follow-up if needed. Please note: Queries are made part of the Legal Health Record. If you have any questions, please contact the author of this message via ITS. Dr. Manny Robins Your patient has been documented with SOB PossibleCOPD. Per the O2 flow rates on 02/18 beginning at 13:07 time stapm;: 6LNC, 8LNC, 2LNC, 6LNC, 2LNC until 16:11 when increased to 3LNC, RR 19 at . Based on this information and the findings below, is there an additional diagnosis that is clinically appropriate for this patient? The patient's P/F ratio is less than 300 on 02/20/21. Please clarify the SOB and oxygen requirement; History/Risk Factors: postsurgical patient with major bowel surgery Tobacco use: Personal history of tobacco Home oxygen: NO Clinical Indicators: : Vital signs: 97.8 f, 122 bpm, 15, 165/82 95% RA Pulse oximetry: Lung/Breathing assessment: ABG/CBG: pH pO2 pCO2 Lactate Treatment: Breathing tx Continuous Pulse ox O2/Vent/BiPap up to 8LNC Is there an additional diagnosis that is clinically appropriate for this patient? { ] Shortness of breath [ ] Acute Hypoxic Respiratory Failure (pO2 <60 mm Hg or SpO2 <91% on room air) [ ] Acute Hypercapnic Respiratory Failure (pCO2 >50 and pH <7.35) [ ] Acute on Chronic Respiratory Failure [ ] Chronic Respiratory Failure [ ] Acute Respiratory Distress [ ] Acute Respiratory Insufficiency [ ] Other Diagnosis, please specify [ ] Unable to determine Shortness of breath MTDD
== END 2021-02-24 16:40 | DRG 330 ==
LOC: OR 10:23 → 5NMEDONC 13:07
PROVIDERS: ADMIT Surgery; ATTEND Surgery
PROC: 0DNK0ZZ Release Ascending Colon, Open Approach (ICD-10-PCS; 2021-02-18)
PROC: 0DTF0ZZ Resection of Right Large Intestine, Open Approach (ICD-10-PCS; principal; 2021-02-18 11:30)
PROC: 0WQF0ZZ Repair Abdominal Wall, Open Approach (ICD-10-PCS; 2021-02-18 11:30)
DX: C18.0 Malignant neoplasm of cecum (principal); E44.1 Mild protein-calorie malnutrition; Z68.1 Body mass index [BMI] 19.9 or less, adult; E87.1 Hypo-osmolality and hyponatremia; C77.2 Secondary and unspecified malignant neoplasm of intra-abdominal lymph nodes; K43.2 Incisional hernia without obstruction or gangrene; E87.6 Hypokalemia; R00.0 Tachycardia, unspecified; Z20.822 Contact with and (suspected) exposure to COVID-19; I10 Essential (primary) hypertension; H91.90 Unspecified hearing loss, unspecified ear; Z90.79 Acquired absence of other genital organ(s); Z98.890 Other specified postprocedural states; Z79.899 Other long term (current) drug therapy; Z85.038 Personal history of other malignant neoplasm of large intestine; Z87.891 Personal history of nicotine dependence; K66.0 Peritoneal adhesions (postprocedural) (postinfection); R51.9 Headache, unspecified; J44.9 Chronic obstructive pulmonary disease, unspecified; R06.02 Shortness of breath
CPT/HCPCS: 64488; 71045; 80048; 80053; 83735; 84132; 84443; 84484; 85025; 87635; 88309; 93005; 94640; 94760

== ENCOUNTER 2023-07-14 17:31 | Emergency (ER) | payer MEDICARE ==
[2023-07-14] MEDS ORDERED: PANTOPRAZOLE 40 MG/10 ML VIAL IVP STA (17:34)
[2023-07-14] MEDS ORDERED: HYDROmorphone 0.5 MG/0.5 ML SYRINGE IVP STA (19:07)
--- NOTE | 2023-07-14 19:10 | ED ---
General Adult HPI - General Chief complaint: Recheck/Abnormal Lab/Rx Stated complaint: Low Hemo, ANDREA Source: patient, EMS, RN notes reviewed, old records reviewed Mode of arrival: ambulatory Limitations: language barrier - History of Present Illness Initial comments: 73-year-old male presenting for evaluation of abnormal outpatient lab. Patient is deaf and history is obtained by writing questions with the patient answered. He was noted to have a hemoglobin of 6 on outpatient lab testing. Patient does admit to dark stool and some epigastric abdominal pain. No fever. Patient denies any anticoagulation. - Related Data Home Medications Medication Instructions Recorded Confirmed Acetaminophen/Diphenhydramine 1 tab PO HS PRN 07/14/23 07/14/23 [Tylenol Pm Ex-Strength Caplet] Polly Extra Strength Back Body 1 - 2 tab PO Q6H PRN MDD 8 tabs 07/14/23 07/14/23 Pain (Aspirin 500mg/Caffeine 32.5mg) Bismuth Subsalicylate 262 - 524 mg PO Q1H PRN 07/14/23 07/14/23 [Pepto-Bismol] Allergies Allergy/AdvReac Type Severity Reaction Status Date / Time No Known Allergies Allergy Verified 07/14/23 18:19 Review of Systems ROS Statement: Those systems with pertinent positive or pertinent negative responses have been documented in the HPI. ROS Other: All systems not noted in ROS Statement are negative. Past Medical History Past Medical History: Cancer, COPD, Hearing Disorder / Deafness Additional Past Medical History / Comment(s): DEAF, READS LIPS, COMMUNICATES BY READING AND WRITING, HAND GESTURES AND NODDING HEAD YES OR NO. LIMITED HHX OBTAINED, PATIENT LIVES ALONE IN APARTMENT, HAS NO FAMILY. , [facility] PUBLIC [facility] # [phone]. HX COLON CANCER. TACHYCARDIA History of Any Multi-Drug Resistant Organisms: None Reported Past Surgical History: Bowel Resection, Hernia Repair Additional Past Surgical History / Comment(s): cyst from right hand removed, and rt hip,. colostomy, and reversal 05/2020. COLONOSCOPY, RIGHT INGUINAL HERNIA REPAIR WITH RIGHT ORCHIECTOMY 10/14/20. LEFT INGUINAL HERNIA REPAIR 11/07/2020 Past Anesthesia/Blood Transfusion Reactions: Unable to Obtain Additional Past Anesthesia/Blood Transfusion Reaction / Comment(s): "has never received any blood transfusions" Past Psychological History: No Psychological Hx Reported Smoking Status: Former smoker Past Alcohol Use History: None Reported Past Drug Use History: None Reported - Past Family History Father History Unknown: Yes Family Medical History: Unable to Obtain Mother History Unknown: Yes Family Medical History: Unable to Obtain General Exam Limitations: language barrier General appearance: alert, in no apparent distress Head exam: Present: atraumatic, normocephalic Eye exam: Present: normal appearance, PERRL ENT exam: Present: mucous membranes dry Neck exam: Present: normal inspection. Absent: tenderness, meningismus Respiratory exam: Present: normal lung sounds bilaterally. Absent: respiratory distress, wheezes Cardiovascular Exam: Present: normal rhythm, tachycardia GI/Abdominal exam: Present: soft, tenderness (Epigastric and right upper quadrant). Absent: distended Rectal exam: Present: black stool Extremities exam: Present: normal inspection, normal capillary refill Neurological exam: Present: alert. Absent: motor sensory deficit Skin exam: Present: pallor Course Vital Signs 07/14/23 07/14/23 07/14/23 17:44 19:09 19:33 Temperature 98.8 F Pulse Rate 110 H 95 96 Respiratory 16 20 18 Rate Blood Pressure 130/86 140/89 152/89 O2 Sat by Pulse 97 97 96 Oximetry Medical Decision Making - Medical Decision Making Was pt. sent in by a medical professional or institution (, PA, LANGUAGE TRANSLATOR, urgent care, hospital, or custodial...) When possible be specific @ -No Did you speak to anyone other than the patient for history (EMS, parent, family, police, friend...)? What history was obtained from this source @ -No Did you review nursing and triage notes (agree or disagree)? Why? @ -I reviewed and agree with nursing and triage notes Were old charts reviewed (outside hosp., previous admission, EMS record, old EKG, old radiological studies, urgent care reports/EKG's, custodial records)? Report findings @ -No old charts were reviewed Differential Diagnosis (chest pain, altered mental status, abdominal pain women, abdominal pain men, vaginal bleeding, weakness, fever, dyspnea, syncope, headache, dizziness, GI bleed, back pain, seizure, CVA, palpatations, mental health, musculoskeletal)? @ Differential GI Bleed: Esophageal varices, aortoenteric fistula, Holli-Croft, gastritis, peptic ulcer disease, diverticulosis, inflammatory bowel disease, hemorrhoids, fissure, colitis, malignancy, Meckels diverticulum, this is not meant to be an all- inclusive list. EKG interpreted by me (3pts min.). @ -Sinus rhythm short AL interval, ventricular rate 96, AL interval 111, QRS duration 110, QTC 394 X-rays interpreted by me (1pt min.). @ -None done CT interpreted by me (1pt min.). @ -None done U/S interpreted by me (1pt. min.). @ -None done What testing was considered but not performed or refused? (CT, X-rays, U/S, labs)? Why? @ -None What meds were considered but not given or refused? Why? @ -None Did you discuss the management of the patient with other professionals (jessica hernandez i.e. , PA, LANGUAGE TRANSLATOR, lab, RT, psych nurse, social sciences professor, junior analyst, teacher, employment officer, heel caser)? Give summary @ -[Case discussed with with [facility], accepting physician Dr. Ivan. Was smoking cessation discussed for >3mins.? @ -No Was critical care preformed (if so, how long)? @ -[This, 35 minutes Were there social determinants of health that impacted care today? How? (Homelessness, low income, unemployed, alcoholism, drug addiction, transpo rtation, low edu. Level, literacy, decrease access to med. care, prison, rehab)? @ -No Was there de-escalation of care discussed even if they declined (Discuss DNR or withdrawal of care, Hospice)? DNR status @ -No What co-morbidities impacted this encounter? (DM, HTN, Smoking, COPD, CAD, Cancer, CVA, ARF, Chemo, Hep., AIDS, mental health diagnosis, sleep apnea, morbid obesity)? @ -None Was patient admitted / discharged? Hospital course, mention meds given and route, prescriptions, significant lab abnormalities, going to OR and other pertinent info. @ -[73-year-old male presenting with anemia from outpatient lab testing. Patient is pale and mildly tachycardic. He does have melanotic stool. He complains of epigastric discomfort. He's given Protonix in the emergency department. His hemoglobin is 6.4 requiring transfusion. This institution does not have gastroenterology and I do suspect an upper GI bleed. The patient will be transferred to [facility]. Undiagnosed new problem with uncertain prognosis? @ -No Drug Therapy requiring intensive monitoring for toxicity (Heparin, Nitro, Insulin, Cardizem)? @ -No Were any procedures done? @ -No Diagnosis/symptom? @ -Anemia, suspect upper GI bleed Acute, or Chronic, or Acute on Chronic? @ -Acute Uncomplicated (without systemic symptoms) or Complicated (systemic symptoms)? @ -default Side effects of treatment? @ -No Exacerbation, Progression, or Severe Exacerbation? @ -No Poses a threat to life or bodily function? How? (Chest pain, USA, MS, pneumonia, PE, COPD, DKA, ARF, appy, cholecystitis, CVA, Diverticulitis, Homicidal, Suicidal, threat to staff... and all critical care pts) @Yes, hemorrhagic shock - Lab Data Result diagrams: 07/14/23 19:00 07/14/23 19:00 Lab Results 07/14/23 07/14/23 07/14/23 Range/Units 18:55 19:00 19:00 WBC 5.2 (3.8-10.6) k/uL RBC 2.04 L (4.30-5.90) m/uL Hgb 6.4 L* (13.0-17.5) gm/dL Hct 20.0 L (39.0-53.0) % MCV 98.3 (80.0-100.0) fL MCH 31.4 (25.0-35.0) pg MCHC 32.0 (31.0-37.0) g/dL RDW 14.3 (11.5-15.5) % Plt Count 269 (150-450) k/uL MPV 8.3 Neutrophils % Not Reportable Lymphocytes % Not Reportable Monocytes % Not Reportable Eosinophils % Not Reportable Basophils % Not Reportable Neutrophils # Not Reportable Lymphocytes # Not Reportable Monocytes # Not Reportable Eosinophils # Not Reportable Basophils # Not Reportable Hypochromasia Slight PT 10.3 (9.0-12.0) sec INR 1.0 (<1.2) APTT 25.8 (22.0-30.0) sec Sodium (137-145) mmol/L Potassium (3.5-5.1) mmol/L Chloride (98-107) mmol/L Carbon Dioxide (22-30) mmol/L Anion Gap mmol/L BUN (9-20) mg/dL Creatinine (0.66-1.25) mg/dL Est GFR (CKD-EPI)AfAm (>60 ml/min/1.73 sqM) Est GFR (CKD-EPI)NonAf (>60 ml/min/1.73 sqM) Glucose (74-99) mg/dL Plasma Lactic Acid Prince (0.7-2.0) mmol/L Calcium (8.4-10.2) mg/dL Magnesium (1.6-2.3) mg/dL Total Bilirubin (0.2-1.3) mg/dL AST (17-59) U/L ALT (4-49) U/L Alkaline Phosphatase (38-126) U/L Total Protein (6.3-8.2) g/dL Albumin (3.5-5.0) g/dL Lipase (23-300) U/L Blood Type O Negative Blood Type Confirm Blood Type Recheck No Previous Record Bld Type Recheck Status CABO Indicated Antibody Screen NEGATIVE Crossmatch See Detail Spec Expiration Date 07/17/2023 - 235407/14/23 07/14/23 07/14/23 Range/Units 19:00 19:00 19:00 WBC (3.8-10.6) k/uL RBC (4.30-5.90) m/uL Hgb (13.0-17.5) gm/dL Hct (39.0-53.0) % MCV (80.0-100.0) fL MCH (25.0-35.0) pg MCHC (31.0-37.0) g/dL RDW (11.5-15.5) % Plt Count (150-450) k/uL MPV Neutrophils % Lymphocytes % Monocytes % Eosinophils % Basophils % Neutrophils # Lymphocytes # Monocytes # Eosinophils # Basophils # Hypochromasia PT (9.0-12.0) sec INR (<1.2) APTT (22.0-30.0) sec Sodium 134 L (137-145) mmol/L Potassium 4.2 (3.5-5.1) mmol/L Chloride 97 L (98-107) mmol/L Carbon Dioxide 32 H (22-30) mmol/L Anion Gap 5 mmol/L BUN 18 (9-20) mg/dL Creatinine 0.54 L (0.66-1.25) mg/dL Est GFR (CKD-EPI)AfAm >90 (>60 ml/min/1.73 sqM) Est GFR (CKD-EPI)NonAf >90 (>60 ml/min/1.73 sqM) Glucose 109 H (74-99) mg/dL Plasma Lactic Acid Prince 0.7 (0.7-2.0) mmol/L Calcium 8.6 (8.4-10.2) mg/dL Magnesium 2.1 (1.6-2.3) mg/dL Total Bilirubin 0.1 L (0.2-1.3) mg/dL AST 14 L (17-59) U/L ALT 8 (4-49) U/L Alkaline Phosphatase 80 (38-126) U/L Total Protein 5.5 L (6.3-8.2) g/dL Albumin 3.0 L (3.5-5.0) g/dL Lipase 103 (23-300) U/L Blood Type Blood Type Confirm O Negative Blood Type Recheck Bld Type Recheck Status Antibody Screen Crossmatch Spec Expiration Date Critical Care Time Critical Care Time: Yes Total Critical Care Time: 35 Disposition Clinical Impression: Melanotic stools, Anemia Disposition: OTHER INSTITUTION NOT DEFINED Condition: Stable Is patient prescribed a controlled substance at d/c from ED?: No Referrals: Babar Mcguire MD [Primary Care Provider] - 1-2 days Time of Disposition: 20:24 - Out of Hospital Transfer - Req. Specs Out of Hospital Transfer - Requested Specifics: Other Emergency Center (Transferred to [facility])
[2023-07-14 19:20] LABS: Hypochromasia Slight; MCH 31.4 pg (25.0-35.0); MCV 98.3 fL (80.0-100.0); Mean Platelet Volume 8.3; Platelet Count 269 k/uL (150-450); RBC 2.04 m/uL (4.30-5.90); RDW 14.3 % (11.5-15.5); WBC 5.2 k/uL (3.8-10.6)
[2023-07-14 19:35] VITALS: RESP 18
[2023-07-14 19:38] LABS: ALT 8 U/L (4-49); AST 14 U/L (17-59); African American GFR (CKD) >90 (>60 ml/min/1.73 sqM); Alkaline Phosphatase 80 U/L (38-126); Anion Gap 5 mmol/L; Blood Urea Nitrogen 18 mg/dL (9-20); Calcium 8.6 mg/dL (8.4-10.2); Carbon Dioxide 32 mmol/L (22-30); Chloride 97 mmol/L (98-107); Glucose 109 mg/dL (74-99); Lipase 103 U/L (23-300); Magnesium 2.1 mg/dL (1.6-2.3); Non-African American GFR(CKD) >90 (>60 ml/min/1.73 sqM); Potassium 4.2 mmol/L (3.5-5.1); Sodium 134 mmol/L (137-145); Total Bilirubin 0.1 mg/dL (0.2-1.3); Total Protein 5.5 g/dL (6.3-8.2)
[2023-07-14 19:51] LABS: HGB 6.4 gm/dL (13.0-17.5)
[2023-07-14 20:19] LABS: Partial Thromboplastin Time 25.8 sec (22.0-30.0); Prothrombin Time 10.3 sec (9.0-12.0)
[2023-07-14 20:30] LABS: Eosinophils # (M) 0.05 k/uL (0-0.7); Lymphocytes # (M) 0.47 k/uL (1.0-4.8); Neutrophils # (M) 4.58 k/uL (1.3-7.7); Neutrophils % (M) 88 %; Nucleated Red Blood Cells 0 /100 WBC (0-0); Total Cells Counted 100
[2023-07-14 20:31] LABS: Polychromasia Present
[2023-07-14 21:02] VITALS: TEMP 97.6
[2023-07-14 21:11] VITALS: BP 119/75; PULSE 89
== END 2023-07-14 21:29 | disposition other institution (70) ==
LOC: EC 17:31
DX: D64.9 Anemia, unspecified (principal); K92.1 Melena; R00.0 Tachycardia, unspecified; J44.9 Chronic obstructive pulmonary disease, unspecified; Z87.891 Personal history of nicotine dependence
CPT/HCPCS: 99291; 96374; 96375; 36430; 36415; 93005; 86900; 86901; 80053; 83605; 83690; 83735; 85025; 85610; 85730; 86850; 86920; 82272; P9016; C9113; J1170

== ENCOUNTER → 2023-10-21 | Outpatient (CLI) | payer MEDICARE ==
--- NOTE | 2023-10-22 08:24 | PE ---
EXAMINATION TYPE: PET CT fusion skull to thigh DATE OF EXAM: 10/21/2023 CLINICAL INDICATION:Male, 73 years old with history of R91.8 OTHER NONSPECIFIC ABNORMAL FINDING OF SAW NG F; TECHNIQUE: Following the intravenous administration of 11.8 mCi of F-18 FDG, whole body images are performed from the skull base to the midthigh. Images are reviewed on the computer in the coronal, a xial, and sagittal planes. Reconstructed rotating images are created on independent workstation and reviewed on the computer. A non-contrast CT is performed in conjunction with the PET scan. Glucose level 108 mg/dL CT DLP: 2 2.43 mGycm, Automated exposure control for dose reduction was used. COMPARISON: CT 10/17/2018., PET/CT None, FINDINGS: Mediastinal SUV mean is 1.7. Hepatic parenchyma SUV mean is 2.1. SKULL BASE AND NECK: No suspicious radiotracer activity. CHEST, MEDIASTINUM, AND HILAR REGION: * Consolidation changes along the medial aspect of the right upper lung extending along the pleura m ax SUV 11.2. * Right perihilar region max SUV 10.3. * Left upper lung 13 mm nodule Max SUV 8.0. * Left inferior upper lobe measuring 11 mm Max SUV 2.8. Mediastinal lymphadenopathy with increased radiotracer uptake: * Right 10 R lymph node max SUV 8.5 * Right low paratracheal max SUV 8.7 Right supraclavicular lymph node measuring up to 13 mm in short axis max SUV 8.4. ABDOMEN AND PELVIS: No suspicious radiotracer activity. MUSCULOSKELETAL STRUCTURES: No suspicious radiotracer activity. OTHER CT: Atherosclerosis of the carotid bifurcations. Atherosclerosis of the coronary arteries. Chol elithiasis. Surgical changes to the colon. Prostatomegaly. IMPRESSION: Findings compatible with primary pulmonary malignancy with metastatic disease to the mediastinum, lef t lung and right supraclavicular region.
== END | disposition home or self-care (01) ==
LOC: RADPETMAIN 13:04
PROVIDERS: ATTEND Internal Medicine Critical Care Medicine
DX: R91.8 Other nonspecific abnormal finding of lung field (principal)
CPT/HCPCS: 78815; A9552

== ENCOUNTER 2023-11-14 12:50 | Day surgery (SDC) | payer MEDICARE ==
--- NOTE | 2023-11-14 14:43 | US ---
ULTRASOUND GUIDED CORE BIOPSY RIGHT SUPRACLAVICULAR LYMPH NODE: CLINICAL HISTORY: Right neck lymph node FINDINGS: The procedure was explained to the patient. The risks, complications, benefits and alternatives were discussed and any questions were answered. Informed consent was obtained. Patient was placed supin e on the ultrasound table and prepped and draped in the usual sterile fashion. Utilizing a 18 gauge needle, a single pass was made into the right neck supraclavicular lymph node. Patient was stable throughout the procedure. Pathology is pending. All elements of maximal barrier technique were utilized. IMPRESSION: 1. Successful ultrasound guided core biopsy requested right neck lymph node.
[2023-11-14 15:14] VITALS: TEMP 98.1
[2023-11-14 15:38] VITALS: BP 104/62; PULSE 76; RESP 18
== END 2023-11-14 13:55 | disposition home or self-care (01) ==
LOC: RADPROMAIN 12:50
PROVIDERS: ATTEND Internal Medicine Critical Care Medicine
DX: C78.00 Secondary malignant neoplasm of unspecified lung (principal); J96.11 Chronic respiratory failure with hypoxia; H91.93 Unspecified hearing loss, bilateral; D64.9 Anemia, unspecified; Z79.51 Long term (current) use of inhaled steroids; Z85.038 Personal history of other malignant neoplasm of large intestine; Z79.899 Other long term (current) drug therapy
CPT/HCPCS: 38505; 76942; 88305; 88341; 88342